=== PATIENT | female | born 1930 | race Caucasian/White ===

== ENCOUNTER 2017-05-09 01:11 | Inpatient (IN) | payer MEDICARE ==
[~2017-05-09] VITALS: Ht 162.6 cm; Wt 60.7 kg
[2017-05-09] VITALS (12 sets, daily range): BP systolic 122–164; BP diastolic 57–72; PULSE 61–86; RESP 15–20; TEMP 98.2–98.6; O2SAT 100
[2017-05-09] MEDS: HEPARIN-D5W 25,000 U/250 ML 250 ML IV PRN (02:45)
[2017-05-09] MEDS ORDERED: GABA100C4 PO (03:33)
[2017-05-09] MEDS ORDERED: DEXA2TAB PO (03:33)
[2017-05-09] MEDS ORDERED: TRIA37.53 PO (03:33)
[2017-05-09] MEDS ORDERED: TRAM50TA PO (03:33)
--- NOTE | 2017-05-09 03:38 | HHI.HP ---
HPI Service Critical Care Medicine Primary Care Physician Non-Staff Admission Diagnosis Diagnosis: Travel History International Travel<30 Days: No Contact w/Intl Traveler <30 Da: No Traveled to Known Affected Are: No History of Present Illness This is a 87-year-old fully pleasant female presented to [facility] complaining of atypical chest pain and headaches. Her workup in the emergency department showed small volume of subarachnoid bleed within the left parietal-occipital region, extensive dural venous sinus thrombosis which involve the superior sagittal sinus striate sinus bilateral transverse sinuses and left sigmoid sinus. There was no aneurysm observed on the CTA brain. The case was discussed by ED attending with Dr. Jarrett/ neurosurgery at [facility] [address] and the patient is transferred to critical care service. Review of Systems ROS Unable to obtain patient is confused Past Family Social History Allergies: Coded Allergies: No Known Allergies (Unverified , 05/09/17) Past Medical History Dementia Hypertension Neurology Past Surgical History Unobtainable Reported Medications Reported Meds & Active Scripts Active Reported Triamterene-Hydrochlorothiazide 37.5-25 Mg Cap 1 Cap PO DAILY Tramadol (Tramadol HCl) 50 Mg Tab 50 Mg PO Q6H PRN Dexamethasone 2 Mg Tab 2 Mg PO DAILY Gabapentin 100 Mg Cap 100 Mg PO BID Active Ordered Medications Current Medications Medications (Trade) Dose Ordered Sig/Anand Route PRN Reason Start Time Stop Time Status Last Admin Dose Admin Sodium Chloride 1,000 ml @ 84 mls/hr [id number] IV 05/09/17 03:32 05/09/17 04:58 Sodium Chloride (NS Flush) 2 ml UNSCH PRN IV FLUSH FLUSH AFTER USING IV ACCESS 05/09/17 03:45 Sodium Chloride (NS Flush) 2 ml BID IV FLUSH 05/09/17 09:00 Acetaminophen (Tylenol) 650 mg Q6H PRN PO PAIN 1-5 AND/OR FEVER >101F 05/09/17 03:45 Oxycodone/ Acetaminophen (Percocet 5-325 Mg) 1 tab Q4H PRN PO PAIN SCALE 1 TO 5 05/09/17 03:45 Famotidine (Pepcid Inj) 20 mg Q12HR IV PUSH 05/09/17 09:00 Ondansetron HCl (Zofran Inj) 4 mg Q6H PRN IV PUSH NAUSEA OR VOMITING 05/09/17 03:45 Albuterol/ Ipratropium (Duoneb Neb) 1 ampule Q2HR NEB PRN INH WHEEZING 05/09/17 03:45 Miscellaneous Information 1 Q361D XX 05/09/17 03:45 Chlorhexidine Gluconate (Chlorhexidine 2% Cloth) 3 pack Taper DAILY@04 TOP 05/09/17 04:00 05/05/18 03:59 Chlorhexidine Gluconate (Chlorhexidine 2% Cloth) 3 pack UNSCH PRN TOP HYGIENIC CARE 05/09/17 03:45 Senna/Docusate Sodium (Alissa-Colace) 1 tab BID PO 05/09/17 09:00 Magnesium Hydroxide (Milk Of Magnesia Liq) 30 ml Q12H PRN PO Mild constipation 05/09/17 03:45 Sennosides (Senokot) 17.2 mg Q12H PRN PO Moderate constipation 05/09/17 03:45 Bisacodyl (Dulcolax Supp) 10 mg DAILY PRN RECTAL SEVERE CONSITIPATION 05/09/17 03:45 Lactulose (Lactulose Liq) 30 ml DAILY PRN PO SEVERE CONSITIPATION 05/09/17 03:45 Dexamethasone (Decadron) 2 mg DAILY PO 05/09/17 09:00 Gabapentin (Neurontin) 100 mg BID PO 05/09/17 09:00 Heparin Sodium/ Dextrose 250 ml @ 7 mls/hr TITRATE PRN IV Coagulation Management 05/09/17 03:45 Levetriacetam 100 ml @ 400 mls/hr Q12HR IV 05/09/17 09:00 Hydromorphone HCl (Dilaudid Pf Inj) 0.2 mg Q4H PRN IV PUSH pain > 5/10 05/09/17 07:00 UNV Family History Family history significant of malignancy Social History Drinks 2 drinks per day, no alcohol or illicit drug abuse Physical Exam Vital Signs Vital Signs Date Time Temp Pulse Resp B/P (MAP) Pulse Ox O2 Delivery O2 Flow Rate FiO2 05/09/17 03:22 79 Physical Exam GENERAL: Well-nourished, well-developed patient. Very pleasant Citizen Of [place]- speaking only woman confused and mildly agitated SKIN: Warm and dry. HEAD: Normocephalic. EYES: No scleral icterus. No injection or drainage. NECK: Supple, trachea midline. No JVD or lymphadenopathy. CARDIOVASCULAR: Regular rate and rhythm without murmurs, gallops, or rubs. RESPIRATORY: Breath sounds equal bilaterally. No accessory muscle use. GASTROINTESTINAL: Abdomen soft, non-tender, nondistended. MUSCULOSKELETAL: No cyanosis, or edema. BACK: Nontender without obvious deformity. NEURO EXAM: Mental Status: The patient is awake, confused, not following commands, Citizen Of [place]- speaking only Cranial Nerves: Pupils are round, reactive to light. Reflexes: Biceps, patellar, and Achilles are 2/4 bilaterally. No clonus. Laboratory Laboratory Tests Test 05/09/17 02:41 Caprini VTE Risk Assessment Caprini VTE Risk Assessment: Mod/High Risk (score >= 2) VTE Pharm Contraindication: Hemorrhage Caprini Risk Assessment Model Point Value = 1 Point Value = 2 Point Value = 3 Point Value = 5 Age 41-60 Minor surgery BMI > 25 kg/m2 Swollen legs Varicose veins or History of unexplained or recurrent spontaneous Oral contraceptives or hormone replacement Sepsis (< 1 month) Serious lung disease, including pneumonia (< 1 month) Abnormal pulmonary function Acute myocardial infarction Congestive heart failure (< 1 month) History of inflammatory bowel disease Medical patient at bed rest Age 61-74 Arthroscopic surgery Major open surgery (> 45 min) Laparoscopic surgery (> 45 min) Malignancy Confined to bed (> 72 hours) Immobilizing plaster cast Central venous access Age >= 75 History of VTE Family history of VTE Factor V Leiden Prothrombin [id number] Lupus anticoagulant Anticardiolipin antibodies Elevated serum homocysteine Heparin-induced thrombocytopenia Other congenital or acquired thrombophilia Stroke (< 1 month) Elective arthroplasty Hip, pelvis, or leg fracture Acute spinal cord injury (< 1 month) Prophylaxis Regimen Total Risk Factor Score Risk Level Prophylaxis Regimen 0-1 Low Early ambulation 2 Moderate Order ONE of the following: *Sequential Compression Device (SCD) *Heparin 5000 units SQ BID 3-4 Higher Order ONE of the following medications: *Heparin 5000 units SQ TID *Enoxaparin/Lovenox 40 mg SQ daily (WT < 150 kg, CrCl > 30 mL/min) *Enoxaparin/Lovenox 30 mg SQ daily (WT < 150 kg, CrCl > 10-29 mL/min) *Enoxaparin/Lovenox 30 mg SQ BID (WT < 150 kg, CrCl > 30 mL/min) AND/OR *Sequential Compression Device (SCD) 5 or more Highest Order ONE of the following medications: *Heparin 5000 units SQ TID (Preferred with Epidurals) *Enoxaparin/Lovenox 40 mg SQ daily (WT < 150 kg, CrCl > 30 mL/min) *Enoxaparin/Lovenox 30 mg SQ daily (WT < 150 kg, CrCl > 10-29 mL/min) *Enoxaparin/Lovenox 30 mg SQ BID (WT < 150 kg, CrCl > 30 mL/min) AND *Sequential Compression Device (SCD) Assessment and Plan Assessment and Plan Subarachnoid bleed - Due to venous sinus thrombosis - No aneurysm observed on CTA - Blood pressure control - Neurosurgical consultation Venous sinus thrombosis - Heparin drip - Neurology consult - Admit to neuro ICU - Neuro checks per unit routine Hypertension - Hold diuretics - Hydralazine and labetalol when necessary - SBP goal less than 140 Seizure - IV Keppra every 12 hours - EEG at the bedside Neuropathy - Home dose of gabapentin DVT GI prophylaxis - Teds SCDs - Heparin drip - Pepcid Critical Care: The total critical care time was 35 minutes. Time to perform other separately billable procedures was not included in the critical care time. Adam Powers MD May 09, 2017 03:38
[2017-05-09] MEDS ORDERED: ONDANSETRON HCL 4 MG/2 ML VIAL IV PUSH PRN (03:45)
[2017-05-09] MEDS ORDERED: CHLORHEXIDINE GLUCONATE 2 % 1 PACK (2 CLOTHS) TOP PRN (03:45)
[2017-05-09] MEDS ORDERED: MISCELLANEOUS NURSING INFORMATION XX SCH (03:45)
[2017-05-09] MEDS ORDERED: oxyCODONE/ACETAMINOPHEN 5 MG/325 MG TAB PO PRN (03:45)
[2017-05-09] MEDS ORDERED: SODIUM CHLORIDE 0.9% FLUSH 10 ML FLUSH IV FLUSH PRN (03:45)
[2017-05-09] MEDS ORDERED: SENNOSIDES 8.6 MG TAB PO PRN (03:45)
[2017-05-09] MEDS ORDERED: BISACODYL 10 MG SUPP RECTAL PRN (03:45)
[2017-05-09] MEDS ORDERED: LACTULOSE SYRUP 20 GM/30 ML CUP PO PRN (03:45)
[2017-05-09] MEDS ORDERED: MAGNESIUM HYDROXIDE SUSP 30 ML CUP PO PRN (03:45)
[2017-05-09] MEDS ORDERED: RESP: ALBUTEROL 2.5 MG/IPRATROPIUM 0.5 MG NEB (PRN) INH (03:45)
[2017-05-09] MEDS ORDERED: ACETAMINOPHEN 325 MG TAB PO PRN (03:45)
[2017-05-09] MEDS: CHLORHEXIDINE GLUCONATE 2 % 1 PACK (2 CLOTHS) TOP SCH (04:00)
[2017-05-09] MEDS: SODIUM CHLOR 0.9% 1000 ML INJ 1,000 ML IV SCH ×2 (04:58→15:27)
[2017-05-09 05:36] LABS: HEMATOCRIT 43.1 % (35.0-46.0); MEAN CELL VOLUME 98.5 FL (80.0-100.0); MEAN CORPUSCULAR HEMOGLOBIN 32.8 PG (27.0-34.0); MEAN CORPUSCULAR HGB CONC 33.3 % (32.0-36.0); PLATELET COUNT 172 TH/MM3 (150-450); RED BLOOD COUNT 4.38 MIL/MM3 (4.00-5.30); RED CELL DISTRIBUTION WIDTH 14.3 % (11.6-17.2); REVIEW FLAG FINAL; WHITE BLOOD COUNT 11.3 TH/MM3 (4.0-11.0)
[2017-05-09 05:46] LABS: INTERNATIONAL NORMALIZED RATIO 1.1 RATIO
[2017-05-09] MEDS ORDERED: LORazepam 2 MG/ML VIAL IV PUSH PRN (07:15)
[2017-05-09 07:20] LABS: APTT (PATIENT) 102.9 SEC (24.3-30.1)
[2017-05-09] MEDS: levETIRAcetam 1000 MG INJ 100 ML IV SCH ×2 (08:36→19:39)
[2017-05-09] MEDS: GABAPENTIN 100 MG CAP PO SCH ×2 (08:36→19:40)
[2017-05-09] MEDS: FAMOTIDINE 20 MG/2 ML VIAL IV PUSH SCH ×2 (08:36→19:39)
[2017-05-09] MEDS: DOCUSATE SODIUM 50 MG/SENNA 8.6 MG TAB PO SCH ×2 (08:36→19:40)
[2017-05-09] MEDS: SODIUM CHLORIDE 0.9% FLUSH 10 ML FLUSH IV FLUSH SCH ×2 (08:36→19:39)
[2017-05-09] MEDS ORDERED: levETIRAcetam 1000 MG INJ 100 ML IV SCH (09:00)
[2017-05-09] MEDS ORDERED: DEXAMETHASONE 4 MG TAB PO SCH (09:00)
[2017-05-09 10:37] LABS: APTT (PATIENT) 53.9 SEC (24.3-30.1)
[2017-05-09] MEDS: DEXAMETHASONE SOD PHOS 4 MG/ML VIAL IV PUSH SCH ×2 (11:52→19:39)
--- NOTE | 2017-05-09 16:03 | MG ---
cc: ROSANNE WEBBER Lab No: [id number] Date: 05/09/2017 Age: Sex: F Race: TECHNIQUE 17-channel EEG. DESCRIPTION: The background rhythm reveals slowing in the theta frequency at 6 Hz, amplitude is about 20 microvolts. No lateralizing features are seen. There are no epileptiform discharges. There is occasional muscle artifact. Hyperventilation was not done. Photic results in a poor driving response. INTERPRETATION Abnormal study consistent with a moderate degree of encephalopathy. MD BO Valiente/EBONIEL /3:53 PM /4:05 PM
--- NOTE | 2017-05-09 16:28 | PD.CONS ---
HPI Service neurosurgery Consult Requested By dr Powers Reason for Consult Subarachnoid hemorrhage Primary Care Physician Non-Staff History of Present Illness This is a 87-year-old fully pleasant female presented to [facility] complaining of atypical chest pain and headaches. Her workup in the emergency department showed small volume of subarachnoid bleed within the left parietal-occipital region, extensive dural venous sinus thrombosis which involve the superior sagittal sinus striate sinus bilateral transverse sinuses and left sigmoid sinus. There was no aneurysm observed on the CTA brain. she has history of dementia. She is alert and confused, at baseline. She moves all 4 extremities without focal weakness. neurosurgical consultation was requested. Review of Systems Not possible due to her dementia Past Family Social History Allergies: Coded Allergies: No Known Allergies (Unverified , 05/09/17) Past Medical History Dementia Hypertension Neurology Reported Medications Triamterene-Hydrochlorothiazide 37.5-25 Mg Cap 1 Cap PO DAILY Tramadol (Tramadol HCl) 50 Mg Tab 50 Mg PO Q6H PRN Dexamethasone 2 Mg Tab 2 Mg PO DAILY Gabapentin 100 Mg Cap 100 Mg PO BID Active Ordered Medications Current Medications Sodium Chloride 1,000 ml @ 84 mls/hr [id number] IV Last administered on 04:58; Start 05/09/17 at 03:32 Sodium Chloride (NS Flush) 2 ml UNSCH PRN IV FLUSH FLUSH AFTER USING IV ACCESS ; Start 05/09/17 at 03:45 Sodium Chloride (NS Flush) 2 ml BID IV FLUSH Last administered on 05/09/17 08: 36; Start 05/09/17 at 09:00 Acetaminophen (Tylenol) 650 mg Q6H PRN PO PAIN 1-5 AND/OR FEVER >101F; Start 05/09/17 at 03:45 Oxycodone/ Acetaminophen (Percocet 5-325 Mg) 1 tab Q4H PRN PO PAIN SCALE 1 TO 5; Start 05/09/17 at 03:45 Famotidine (Pepcid Inj) 20 mg Q12HR IV PUSH Last administered on 05/09/17 08: 36; Start 05/09/17 at 09:00 Ondansetron HCl (Zofran Inj) 4 mg Q6H PRN IV PUSH NAUSEA OR VOMITING; Start at 03:45 Albuterol/ Ipratropium (Duoneb Neb) 1 ampule Q2HR NEB PRN INH WHEEZING; Start 05/09/17 at 03:45 Miscellaneous Information 1 Q361D XX ; Start 05/09/17 at 03:45 Chlorhexidine Gluconate (Chlorhexidine 2% Cloth) 3 pack Taper DAILY@04 TOP ; Start 05/09/17 at 04:00; Stop 05/05/18 at 03:59 Chlorhexidine Gluconate (Chlorhexidine 2% Cloth) 3 pack UNSCH PRN TOP HYGIENIC CARE; Start 05/09/17 at 03:45 Senna/Docusate Sodium (Alissa-Colace) 1 tab BID PO ; Start 05/09/17 at 09:00 Magnesium Hydroxide (Milk Of Magnesia Liq) 30 ml Q12H PRN PO Mild constipation ; Start 05/09/17 at 03:45 Sennosides (Senokot) 17.2 mg Q12H PRN PO Moderate constipation; Start 05/09/17 at 03:45 Bisacodyl (Dulcolax Supp) 10 mg DAILY PRN RECTAL SEVERE CONSITIPATION; Start 05/09/17 at 03:45 Lactulose (Lactulose Liq) 30 ml DAILY PRN PO SEVERE CONSITIPATION; Start at 03:45 Dexamethasone (Decadron) 2 mg DAILY PO ; Start 05/09/17 at 09:00; Stop 05/09/17 at 11:04; Status DC Gabapentin (Neurontin) 100 mg BID PO ; Start 05/09/17 at 09:00 Heparin Sodium/ Dextrose 250 ml @ 7 mls/hr TITRATE PRN IV Coagulation Management Last administered on 05/09/17 02:45; Start 05/09/17 at 03:45 Levetriacetam 100 ml @ 400 mls/hr Q12HR IV Last administered on 05/09/17 08: 36; Start 05/09/17 at 09:00 Hydromorphone HCl (Dilaudid Pf Inj) 0.2 mg Q4H PRN IV PUSH pain > 5/10; Start 05/09/17 at 07:00 Levetriacetam 100 ml @ 400 mls/hr Q12HR IV ; Start 05/09/17 at 09:00; Stop 05/09/17 at 09:00; Status DC Lorazepam (Ativan Inj) 1 mg Q15M PRN IV PUSH seizure; Start 05/09/17 at 07:15 Dexamethasone Sodium Phosphate (Decadron Inj) 2 mg Q12HR IV PUSH Last administered on 05/09/17t 11:52; Start 05/09/17 at 11:15 Family History Unobtainable due to her condition Social History Drinks 2 drinks per day, no alcohol or illicit drug abuse Physical Exam Vital Signs Vital Signs Date Time Temp Pulse Resp B/P (MAP) Pulse Ox O2 Delivery O2 Flow Rate FiO2 05/09/17 14:00 86 05/09/17 12:00 98.4 65 20 152/69 (96) 100 05/09/17 12:00 65 05/09/17 10:00 61 05/09/17 08:00 98.5 73 15 144/67 (92) 100 05/09/17 08:00 73 05/09/17 07:00 100 Room Air 05/09/17 06:00 77 05/09/17 04:00 70 05/09/17 04:00 98.6 70 20 122/57 (78) 100 05/09/17 03:22 79 05/09/17 02:45 98.6 78 17 149/63 (91) 100 Physical Exam The patient is alert, confused, oriented to self. At baseline. GCS 14 Cranial nerve examination demonstrates the pupils to be equal, round, and reactive to light. Extra-ocular movements are intact with normal convergence. Facial motor function appears normal and symmetrical. Face sensation, hearing, visual cole, and olfaction can not be assessed properly due to the patients condition. The patient has an intact corneal reflex and a gag reflex. Sternocleidomastoid and trapezius have normal and symmetrical strength. Other cranial nerves are intact. Neck is soft and supple. Cervical spine has a decreased range of motion of the cervical spine without pain. There is no tenderness to palpation to the spinous processes or paraspinal muscles. Muscle testing reveals normal bulk and tone overall without rigidity, spasticity , fasciculations, or atrophy. Muscle strength is 5/5 in all muscle groups of both upper and lower extremities. Deep tendon reflexes are 1+ and symmetrical in the biceps, triceps, and brachioradialis, bilaterally, in the upper extremities. In the lower extremities , the patellar and Achilles are 1+, bilaterally. There is a bilateral plantar flexion response. Hoffmanns sign is negative. There is no clonus or other abnormal reflexes noted. Cerebellar examination is limited due to the patient condition, but no obvious deficits are noted. Laboratory Laboratory Tests Test 05/09/17 02:41 05/09/17 05:18 05/09/17 10:05 Nasal Screen MRSA (PCR) MRSA NOT DETECTED White Blood Count 11.3 Red Blood Count 4.38 Hemoglobin 14.4 Hematocrit 43.1 Mean Corpuscular Volume 98.5 Mean Corpuscular Hemoglobin 32.8 Mean Corpuscular Hemoglobin Concent 33.3 Red Cell Distribution Width 14.3 Platelet Count 172 Mean Platelet Volume 7.4 Prothrombin Time 12.0 Prothromb Time International Ratio 1.1 Activated Partial Thromboplast Time 102.9 53.9 Result Diagram: 05/09/17 0518 Assessment and Plan Assessment and Plan Caprini VTE Risk Assessment Caprini VTE Risk Assessment: Mod/High Risk (score >= 2) Caprini Risk Assessment Model Point Value = 1 Point Value = 2 Point Value = 3 Point Value = 5 Age 41-60 Minor surgery BMI > 25 kg/m2 Swollen legs Varicose veins or History of unexplained or recurrent spontaneous Oral contraceptives or hormone replacement Sepsis (< 1 month) Serious lung disease, including pneumonia (< 1 month) Abnormal pulmonary function Acute myocardial infarction Congestive heart failure (< 1 month) History of inflammatory bowel disease Medical patient at bed rest Age 61-74 Arthroscopic surgery Major open surgery (> 45 min) Laparoscopic surgery (> 45 min) Malignancy Confined to bed (> 72 hours) Immobilizing plaster cast Central venous access Age >= 75 History of VTE Family history of VTE Factor V Leiden Prothrombin [id number] Lupus anticoagulant Anticardiolipin antibodies Elevated serum homocysteine Heparin-induced thrombocytopenia Other congenital or acquired thrombophilia Stroke (< 1 month) Elective arthroplasty Hip, pelvis, or leg fracture Acute spinal cord injury (< 1 month) Prophylaxis Regimen Total Risk Factor Score Risk Level Prophylaxis Regimen 0-1 Low Early ambulation 2 Moderate Order ONE of the following: *Sequential Compression Device (SCD) *Heparin 5000 units SQ BID 3-4 Higher Order ONE of the following medications: *Heparin 5000 units SQ TID *Enoxaparin/Lovenox 40 mg SQ daily (WT < 150 kg, CrCl > 30 mL/min) *Enoxaparin/Lovenox 30 mg SQ daily (WT < 150 kg, CrCl > 10-29 mL/min) *Enoxaparin/Lovenox 30 mg SQ BID (WT < 150 kg, CrCl > 30 mL/min) AND/OR *Sequential Compression Device (SCD) 5 or more Highest Order ONE of the following medications: *Heparin 5000 units SQ TID (Preferred with Epidurals) *Enoxaparin/Lovenox 40 mg SQ daily (WT < 150 kg, CrCl > 30 mL/min) *Enoxaparin/Lovenox 30 mg SQ daily (WT < 150 kg, CrCl > 10-29 mL/min) *Enoxaparin/Lovenox 30 mg SQ BID (WT < 150 kg, CrCl > 30 mL/min) AND *Sequential Compression Device (SCD) Attending Statement Sinus thrombosis. Pt on heparin drip. Has subarachnoid hemorrhage. I reviewed her radiological studies from [facility]. CTA negative for aneurysm Neuro. neuro checks in a serial fashion, follow-up CT of the brain will be obtained in 24 hours. Nonoperative treatment I will manage her subarachnoid hemorrhage, I will kindly defer management of the thrombosis to neurology Pulmonary.aggressive pulmonary toilette, nasotracheal suction, and breathing treatments with nebulizers. The patient has comorbidities including Alcohol intoxication, Diabetes mellitus , Thrombocytopenia, Hepatitis C, which increase the risk for developing complications. Nutrition. Oral diet ADA 2000 Asif Renal. monitor closely urine output, BUN and creatinine Diabetes mellitus. Monitor serial Acu checks and SSI as needed in detail ID monitor for signs of infection Protonix for stress ulcer prophylaxis Perez jacinto and SCD's for DVT prophylaxis. Discussed with Mikhail Zuñiga MD May 09, 2017 16:28
--- NOTE | 2017-05-09 17:31 | MB ---
cc: MICHAEL ESPARZA M.D. DATE OF CONSULTATION 05/09/2017 DATE OF 1930, 87 years old REASON FOR CONSULTATION Sinus thromboses HISTORY OF THE PRESENT ILLNESS This is an 87-year-old woman who presented to the ER at [facility] yesterday with a headache. Had a CT scan found to have a left parietooccipital subarachnoid hemorrhage and dural vein sinus thromboses and subsequently sent here to neurosurgery. The patient has a baseline dementia, hypertension, neuropathy. She is currently lying in bed, family members around her, confused, agitated. She does not speak [place]. She is [place]ic speaking. She will not answer any questions for me or for family members. She has been seen by neurosurgery. She is currently on heparin REVIEW OF SYSTEMS Unable to obtain. ALLERGIES None reported PAST MEDICAL HISTORY 1. Dementia. 2. Neuropathy. 3. Hypertension. MEDICATIONS Home meds are: 1. Triamterene. 2. Hydrochlorothiazide. 3. Tramadol p.r.n. 4. Dexamethasone. 5. Gabapentin. PHYSICAL EXAMINATION VITAL SIGNS: On exam vitals temperature 98.4, pulse 86, respiratory rate 20, blood pressure is 152/69, sating at 100%. NECK: Supple. No bruits. HEART: Regular. NEUROLOGIC: She is awake and alert. Her pupils are reactive. She does not have a gaze preference. She tends to look at you and then she does not look at you. Does not follow any commands to determine if she can see or not. I asked her to count fingers for me, she refused. Her speech is [place]ic does sound fluent. Motor terry she seems to be moving everything. She looks equal but she will not follow any appropriate commands to test strength. DTRs are 2+. Toes withdraw. Cerebellar cannot be assessed nor can gait. LABORATORY DATA Labs, white count 11.3. Her PTT at 10:05 this morning was 53.9. MRSA not detected. IMAGING She had imaging at [facility] that confirmed subarachnoid left parietal occipital region and dural vein sinus thromboses superior sagittal sinus both transverse and left sigmoid. She apparently had a seizure and was started also on Keppra. RECOMMENDATIONS The recommendations are to maintain seizure precautions. Continue her Keppra and check an EEG. Can continue her Gabapentin. Continue her heparin per protocol. PT, OT, speech therapy evaluation. She will need a swallow evaluation and evaluation by case management for either outpatient therapy, home care versus alf. MD WILDA Jordan/CAMILA /4:12 PM /5:16 PM
--- NOTE | 2017-05-09 18:00 | RADRPT ---
EXAM DATE/TIME: 05/09/2017 17:17 [place] COMPARISON: No previous studies available for comparison. INDICATIONS : Follow up bleed. RADIATION DOSE: 26.84 CTDIvol (mGy) MEDICAL HISTORY : Hypertension. SURGICAL HISTORY : None. ENCOUNTER: Initial ACUITY: 1 day PAIN SCALE: 5/10 LOCATION: Bilateral cranial TECHNIQUE: Multiple contiguous axial images were obtained of the head. Using automated exposure control and adj ustment of the mA and/or kV according to patient size, radiation dose was kept as low as reasonably a chievable to obtain optimal diagnostic quality images. DICOM format image data is available electro nically for review and comparison. FINDINGS: There is intraparenchymal hemorrhage in the left posterior occipital mid convexities are measuring ap proximately 2.9 x 2.4 cm. There is also associated regional subarachnoid blood products. No significa nt midline shift. Basilar cisterns are intact. The ventricles are symmetrical in size without evidenc e for intraventricular blood products. There is mild diffuse to atrophy with mild to moderate periventricular white matter hypodensities con sistent with ischemic white matter demyelination. Brainstem and cerebellum are intact. Soft tissues a re grossly unremarkable. Calvarium is intact. Paranasal sinuses and mastoid air cells are clear. CONCLUSION: 1. Left posterior occipital mid convexity interparenchymal hemorrhage measuring approximately 2.9 x 2 .4 cm with associated regional subarachnoid blood products. No significant hydrocephalus, midline emi ft or herniation at this time. Hemorrhagic mass cannot be excluded. This can be further evaluated wit h MRI exam as clinically warranted. Pa Sanchez MD on May 09, 2017 at 17:54 Board Certified Radiologist. This report was verified electronically.
[2017-05-09 18:43] LABS: APTT (PATIENT) 72.4 SEC (24.3-30.1)
[2017-05-09] MEDS: HYDROmorphone HCL PF 1 MG/ML VIAL IV PUSH PRN (19:40)
[2017-05-10] VITALS (13 sets, daily range): BP systolic 115–169; BP diastolic 56–72; PULSE 54–82; RESP 14–22; TEMP 97.5–98.6; O2SAT 94–100
[2017-05-10 01:07] LABS: APTT (PATIENT) 86.4 SEC (24.3-30.1)
[2017-05-10] MEDS: HYDROmorphone HCL PF 1 MG/ML VIAL IV PUSH PRN ×3 (01:40→17:06)
[2017-05-10] MEDS: SODIUM CHLOR 0.9% 1000 ML INJ 1,000 ML IV SCH ×2 (03:22→15:17)
[2017-05-10] MEDS: CHLORHEXIDINE GLUCONATE 2 % 1 PACK (2 CLOTHS) TOP SCH (03:23)
[2017-05-10 03:58] LABS: BASOPHIL % 0.2 % (0.0-2.0); HEMATOCRIT 40.9 % (35.0-46.0); HEMO FLAGS DIFF FINAL; LYMPH % 21.3 % (9.0-44.0); LYMPHOCYTE # 1.4 TH/MM3 (1.0-4.8); MEAN CELL VOLUME 99.1 FL (80.0-100.0); MEAN CORPUSCULAR HEMOGLOBIN 33.8 PG (27.0-34.0); MEAN CORPUSCULAR HGB CONC 34.1 % (32.0-36.0); MONO % 3.8 % (0.0-8.0); NEUT % 74.7 % (16.0-70.0); PLATELET COUNT 143 TH/MM3 (150-450); RED BLOOD COUNT 4.12 MIL/MM3 (4.00-5.30); RED CELL DISTRIBUTION WIDTH 13.8 % (11.6-17.2); WHITE BLOOD COUNT 6.7 TH/MM3 (4.0-11.0)
[2017-05-10 04:10] LABS: APTT (PATIENT) 36.6 SEC (24.3-30.1)
[2017-05-10 04:31] LABS: ANION GAP 8 MEQ/L (5-15); AST (GOT) 25 U/L (15-37); BICARBONATE 23.1 MEQ/L (21.0-32.0); BLOOD UREA NITROGEN 23 MG/DL (7-18); CHLORIDE 105 MEQ/L (98-107); GLOMERULAR FILTRATION RATE 62 ML/MIN (>89); MAGNESIUM 2.3 MG/DL (1.5-2.5); POTASSIUM 4.4 MEQ/L (3.5-5.1); SODIUM (NA) 136 MEQ/L (136-145)
[2017-05-10 04:32] LABS: ALT (GPT) 18 U/L (10-53)
[2017-05-10 04:34] LABS: ALKALINE PHOSPHATASE 94 U/L (45-117); TOTAL BILIRUBIN ADULT 0.9 MG/DL (0.2-1.0)
[2017-05-10] MEDS: HEPARIN-D5W 25,000 U/250 ML 250 ML IV PRN (07:32)
[2017-05-10] MEDS: SODIUM CHLORIDE 0.9% FLUSH 10 ML FLUSH IV FLUSH SCH ×2 (09:00→21:01)
[2017-05-10] MEDS: GABAPENTIN 100 MG CAP PO SCH ×2 (09:00→21:02)
[2017-05-10] MEDS: DOCUSATE SODIUM 50 MG/SENNA 8.6 MG TAB PO SCH ×2 (09:00→21:02)
--- NOTE | 2017-05-10 09:08 | HHI.CCPN ---
Subjective Remarks/Hospital Course This is a 87-year-old fully pleasant female presented to [facility] complaining of atypical chest pain and headaches. Her workup in the emergency department showed small volume of subarachnoid bleed within the left parietal-occipital region, extensive dural venous sinus thrombosis which involve the superior sagittal sinus striate sinus bilateral transverse sinuses and left sigmoid sinus. There was no aneurysm observed on the CTA brain. The case was discussed by ED attending with Dr. Jarrett/ neurosurgery at [facility] and the patient is transferred to critical care service. 05/10: CT head last evening demonstrated left occipital parenchymal hemorrhage. Discussed in detail with consultants. Assuming parenchymal bleeding is from venous back pressure we will continue anticoagulation, convert to lovenox to produce better steady state therapy. Objective Vital Signs Date Time Temp Pulse Resp B/P (MAP) Pulse Ox O2 Delivery O2 Flow Rate FiO2 05/10/17 07:47 99 21 05/10/17 06:00 54 05/10/17 04:00 98.0 15 145/67 (93) 05/09/17 19:00 Room Air Intake and Output 05/10/17 05/10/17 05/11/17 08:00 16:00 00:00 Intake Total 1000 ml Balance 1000 ml Result Diagram: 05/10/17 0345 05/10/17 0345 Objective Remarks GENERAL: Well-nourished, well-developed patient. Very pleasant [place]- speaking only woman confused. SKIN: Warm and dry. HEAD: Normocephalic. EYES: No scleral icterus. No injection or drainage. NECK: Supple, trachea midline. Airway widely patent. CARDIOVASCULAR: Regular rate and rhythm without murmurs, gallops, or rubs. RESPIRATORY: Breath sounds equal bilaterally. No accessory muscle use. Clear. GASTROINTESTINAL: Abdomen soft, non-tender, nondistended. BS active. MUSCULOSKELETAL: No cyanosis, or edema. Well perfused. NEURO EXAM: Moves 4 limbs spontaneously, conversant in [place]ian. Alert. A/P Assessment and Plan Subarachnoid bleed - Due to venous sinus thrombosis - No aneurysm observed on CTA - Blood pressure control - Neurosurgical consultation Venous sinus thrombosis - Heparin drip - Neurology consult - Admit to neuro ICU - Neuro checks per unit routine Hypertension - Hold diuretics - Hydralazine and labetalol when necessary - SBP goal less than 140 Seizure - IV Keppra every 12 hours - EEG at the bedside Neuropathy - Home dose of gabapentin DVT GI prophylaxis - Teds SCDs - Heparin drip - Pepcid Overall impression: Patient is critically ill with new parenchymal hemorrhages and cerebral vein thrombosis. New parenchymal bleed may be related to venous back pressure from venous obstruction. Morbidity is so high without therapy that we will continue anticoagulation. Review of recent literature indicates that risk of catastrophic parenchymal hemorrhage is low. Critical care 43 mins Behzad Blanco MD May 10, 2017 09:08
[2017-05-10] MEDS: FAMOTIDINE 20 MG/2 ML VIAL IV PUSH SCH ×2 (09:25→21:02)
[2017-05-10] MEDS: DEXAMETHASONE SOD PHOS 4 MG/ML VIAL IV PUSH SCH ×2 (09:26→21:02)
[2017-05-10] MEDS: levETIRAcetam 1000 MG INJ 100 ML IV SCH ×2 (09:27→21:01)
[2017-05-10 13:20] LABS: APTT (PATIENT) 30.8 SEC (24.3-30.1)
[2017-05-10] MEDS: ENOXAPARIN SODIUM 60 MG/0.6 ML SYRINGE SQ SCH (16:00)
--- NOTE | 2017-05-10 17:19 | HHI.NSPN ---
Note Status Status: Progress Note Interval History Diagnosis Sinus thrombosis Interval History This is a 87-year-old fully pleasant female presented to [facility] complaining of atypical chest pain and headaches. Her workup in the emergency department showed small volume of subarachnoid bleed within the left parietal-occipital region, extensive dural venous sinus thrombosis which involve the superior sagittal sinus striate sinus bilateral transverse sinuses and left sigmoid sinus. There was no aneurysm observed on the CTA brain. she has history of dementia. She is alert and confused, at baseline. She moves all 4 extremities without focal weakness. neurosurgical consultation was requested. 05/10. Clinically stable. Follow up CT brain done today Labs, Micro, & Vital Signs Results Date Time Temp Pulse Resp B/P (MAP) Pulse Ox O2 Delivery O2 Flow Rate FiO2 05/10/17 14:00 56 05/10/17 12:00 56 05/10/17 12:00 98.0 56 14 141/63 (89) 96 05/10/17 10:00 56 05/10/17 08:00 56 05/10/17 08:00 98.2 56 22 115/56 (75) 98 05/10/17 07:47 99 21 05/10/17 07:00 99 Room Air 05/10/17 06:00 54 05/10/17 04:00 98.0 60 15 145/67 (93) 100 05/10/17 04:00 60 05/10/17 02:10 16 05/10/17 02:00 61 05/10/17 00:00 61 05/10/17 00:00 97.5 61 18 169/72 (104) 94 05/09/17 22:00 61 05/09/17 20:00 64 05/09/17 20:00 98.2 64 18 136/65 (88) 100 05/09/17 19:00 100 Room Air 05/09/17 18:00 98.4 70 17 164/72 (102) 100 05/09/17 18:00 70 Constitutional Vital Signs Date Time Temp Pulse Resp B/P (MAP) Pulse Ox O2 Delivery O2 Flow Rate FiO2 05/10/17 14:00 56 05/10/17 12:00 56 05/10/17 12:00 98.0 56 14 141/63 (89) 96 05/10/17 10:00 56 05/10/17 08:00 56 05/10/17 08:00 98.2 56 22 115/56 (75) 98 05/10/17 07:47 99 21 05/10/17 07:00 99 Room Air 05/10/17 06:00 54 05/10/17 04:00 98.0 60 15 145/67 (93) 100 05/10/17 04:00 60 05/10/17 02:10 16 05/10/17 02:00 61 05/10/17 00:00 61 05/10/17 00:00 97.5 61 18 169/72 (104) 94 05/09/17 22:00 61 05/09/17 20:00 64 05/09/17 20:00 98.2 64 18 136/65 (88) 100 05/09/17 19:00 100 Room Air 05/09/17 18:00 98.4 70 17 164/72 (102) 100 05/09/17 18:00 70 Physical Exam Ms Lewis is alert, confused, oriented to self. At baseline. GCS 14 Cranial nerve examination demonstrates the pupils to be equal, round, and reactive to light. Extra-ocular movements are intact with normal convergence. Facial motor function appears normal and symmetrical. Face sensation, hearing, visual cole, and olfaction can not be assessed properly due to the patients condition. The patient has an intact corneal reflex and a gag reflex. Sternocleidomastoid and trapezius have normal and symmetrical strength. Other cranial nerves are intact. Neck is soft and supple. Cervical spine has a decreased range of motion of the cervical spine without pain. There is no tenderness to palpation to the spinous processes or paraspinal muscles. Muscle testing reveals normal bulk and tone overall without rigidity, spasticity , fasciculations, or atrophy. Muscle strength is 5/5 in all muscle groups of both upper and lower extremities. Deep tendon reflexes are 1+ and symmetrical in the biceps, triceps, and brachioradialis, bilaterally, in the upper extremities. In the lower extremities , the patellar and Achilles are 1+, bilaterally. There is a bilateral plantar flexion response. Hoffmanns sign is negative. There is no clonus or other abnormal reflexes noted. Cerebellar examination is limited due to the patient condition, but no obvious deficits are noted. Medications Current Medications Current Medications Sodium Chloride 1,000 ml @ 84 mls/hr [id number] IV Last administered on 03:22; Start 05/09/17 at 03:32 Sodium Chloride (NS Flush) 2 ml UNSCH PRN IV FLUSH FLUSH AFTER USING IV ACCESS ; Start 05/09/17 at 03:45 Sodium Chloride (NS Flush) 2 ml BID IV FLUSH Last administered on 05/10/17 09: 00; Start 05/09/17 at 09:00 Acetaminophen (Tylenol) 650 mg Q6H PRN PO PAIN 1-5 AND/OR FEVER >101F; Start 05/09/17 at 03:45 Oxycodone/ Acetaminophen (Percocet 5-325 Mg) 1 tab Q4H PRN PO PAIN SCALE 1 TO 5; Start 05/09/17 at 03:45 Famotidine (Pepcid Inj) 20 mg Q12HR IV PUSH Last administered on 05/10/17 09: 25; Start 05/09/17 at 09:00; Stop 05/10/17 at 15:31; Status DC Ondansetron HCl (Zofran Inj) 4 mg Q6H PRN IV PUSH NAUSEA OR VOMITING Last administered on 05/10/17 10:00; Start 05/09/17 at 03:45 Albuterol/ Ipratropium (Duoneb Neb) 1 ampule Q2HR NEB PRN INH WHEEZING; Start 05/09/17 at 03:45 Miscellaneous Information 1 Q361D XX ; Start 05/09/17 at 03:45 Chlorhexidine Gluconate (Chlorhexidine 2% Cloth) 3 pack Taper DAILY@04 TOP ; Start 05/09/17 at 04:00; Stop 05/05/18 at 03:59 Chlorhexidine Gluconate (Chlorhexidine 2% Cloth) 3 pack UNSCH PRN TOP HYGIENIC CARE; Start 05/09/17 at 03:45 Senna/Docusate Sodium (Alissa-Colace) 1 tab BID PO ; Start 05/09/17 at 09:00 Magnesium Hydroxide (Milk Of Magnesia Liq) 30 ml Q12H PRN PO Mild constipation ; Start 05/09/17 at 03:45 Sennosides (Senokot) 17.2 mg Q12H PRN PO Moderate constipation; Start 05/09/17 at 03:45 Bisacodyl (Dulcolax Supp) 10 mg DAILY PRN RECTAL SEVERE CONSITIPATION; Start 05/09/17 at 03:45 Lactulose (Lactulose Liq) 30 ml DAILY PRN PO SEVERE CONSITIPATION; Start at 03:45 Dexamethasone (Decadron) 2 mg DAILY PO ; Start 05/09/17 at 09:00; Stop 05/09/17 at 11:04; Status DC Gabapentin (Neurontin) 100 mg BID PO ; Start 05/09/17 at 09:00 Heparin Sodium/ Dextrose 250 ml @ 7 mls/hr TITRATE PRN IV Coagulation Management Last administered on 05/10/17 07:32; Start 05/09/17 at 03:45; Stop 05/10/17 at 09:06; Status DC Levetriacetam 100 ml @ 400 mls/hr Q12HR IV Last administered on 05/10/17 09: 27; Start 05/09/17 at 09:00 Hydromorphone HCl (Dilaudid Pf Inj) 0.2 mg Q4H PRN IV PUSH pain > 5/10 Last administered on 05/10/17 17:06; Start 05/09/17 at 07:00 Levetriacetam 100 ml @ 400 mls/hr Q12HR IV ; Start 05/09/17 at 09:00; Stop 05/09/17 at 09:00; Status DC Lorazepam (Ativan Inj) 1 mg Q15M PRN IV PUSH seizure; Start 05/09/17 at 07:15 Dexamethasone Sodium Phosphate (Decadron Inj) 2 mg Q12HR IV PUSH Last administered on 05/10/17 09:26; Start 05/09/17 at 11:15 Enoxaparin Sodium (Lovenox Inj) 60 mg Q12H SQ Last administered on 05/10/17 16 :00; Start 05/10/17 at 16:00 Famotidine (Pepcid Inj) 10 mg Q12HR IV PUSH ; Start 05/10/17 at 21:00 Medical Decision Making MDM Remarks Last [address] 05/09/17 0000 Signed Impressions: Service Date/Time: Tuesday, May 09, 2017 17:17 - CONCLUSION: 1. Left posterior occipital mid convexity interparenchymal hemorrhage measuring approximately 2.9 x 2.4 cm with associated regional subarachnoid blood products. No significant hydrocephalus, midline shift or herniation at this time. Hemorrhagic mass cannot be excluded. This can be further evaluated with MRI exam as clinically warranted. Pa Sanchez MD Plan Plan Remarks Caprini VTE Risk Assessment Caprini VTE Risk Assessment: Mod/High Risk (score >= 2) Caprini Risk Assessment Model Point Value = 1 Point Value = 2 Point Value = 3 Point Value = 5 Age 41-60 Minor surgery BMI > 25 kg/m2 Swollen legs Varicose veins or History of unexplained or recurrent spontaneous Oral contraceptives or hormone replacement Sepsis (< 1 month) Serious lung disease, including pneumonia (< 1 month) Abnormal pulmonary function Acute myocardial infarction Congestive heart failure (< 1 month) History of inflammatory bowel disease Medical patient at bed rest Age 61-74 Arthroscopic surgery Major open surgery (> 45 min) Laparoscopic surgery (> 45 min) Malignancy Confined to bed (> 72 hours) Immobilizing plaster cast Central venous access Age >= 75 History of VTE Family history of VTE Factor V Leiden Prothrombin [id number] Lupus anticoagulant Anticardiolipin antibodies Elevated serum homocysteine Heparin-induced thrombocytopenia Other congenital or acquired thrombophilia Stroke (< 1 month) Elective arthroplasty Hip, pelvis, or leg fracture Acute spinal cord injury (< 1 month) Prophylaxis Regimen Total Risk Factor Score Risk Level Prophylaxis Regimen 0-1 Low Early ambulation 2 Moderate Order ONE of the following: *Sequential Compression Device (SCD) *Heparin 5000 units SQ BID 3-4 Higher Order ONE of the following medications: *Heparin 5000 units SQ TID *Enoxaparin/Lovenox 40 mg SQ daily (WT < 150 kg, CrCl > 30 mL/min) *Enoxaparin/Lovenox 30 mg SQ daily (WT < 150 kg, CrCl > 10-29 mL/min) *Enoxaparin/Lovenox 30 mg SQ BID (WT < 150 kg, CrCl > 30 mL/min) AND/OR *Sequential Compression Device (SCD) 5 or more Highest Order ONE of the following medications: *Heparin 5000 units SQ TID (Preferred with Epidurals) *Enoxaparin/Lovenox 40 mg SQ daily (WT < 150 kg, CrCl > 30 mL/min) *Enoxaparin/Lovenox 30 mg SQ daily (WT < 150 kg, CrCl > 10-29 mL/min) *Enoxaparin/Lovenox 30 mg SQ BID (WT < 150 kg, CrCl > 30 mL/min) AND *Sequential Compression Device (SCD) Attending Statement Neuro. neuro checks. Sinus thrombosis. Her CT brain looks worse. I will manage her subarachnoid hemorrhage, I will kindly defer management of the thrombosis to neurology. I will kindly defer need for anticoagulation to her neurologist Pulmonary.aggressive pulmonary toilette, nasotracheal suction, and breathing treatments with nebulizers. The patient has comorbidities including Alcohol intoxication, Diabetes mellitus , Thrombocytopenia, Hepatitis C, which increase the risk for developing complications. Nutrition. Oral diet ADA 2000 Asif Renal. monitor closely urine output, BUN and creatinine Diabetes mellitus. Monitor serial Acu checks and SSI as needed in detail ID monitor for signs of infection Protonix for stress ulcer prophylaxis Perez hose and SCD's for DVT prophylaxis. Discussed with Dr Blanco. We believe that her hemorrhages are related to increased venous pressure. She is critically ill with new parenchymal hemorrhages and cerebral vein thrombosis. New parenchymal bleed possibly related to venous back pressure from venous obstruction. Morbidity is so high without therapy that we will continue anticoagulation. Review of recent literature indicates that risk of catastrophic parenchymal hemorrhage is low. Mikhail Jarrett MD May 10, 2017 17:19
--- NOTE | 2017-05-10 23:00 | MB ---
cc: PATSY WARD MD DATE OF CONSULTATION 05/10/2017 DATE OF 1930 Consult requested by the critical care service. REASON FOR CONSULTATION Patient with dural sinus thrombosis complicated by a subarachnoid hemorrhage. CURRENT TREATMENT She is on anticoagulation; initially with heparin and now on Lovenox to a therapeutic dose. CHIEF COMPLAINT Ms. Lewis is essentially nonverbal, she is arousable but is unable to communicate effectively. The entirety of this history has been obtained from her son, Venkata and from the electronic medical record from both [facility] in [place] as well as the [facility] EMR. Ms. Lewis per her son has underlying dementia, she lives with him and requires assistance with many activities of daily living including ambulation and bathing. He reports she has dementia and is quite forgetful. She had been in her usual state of health up until the morning of Sunday, the patient was noted to be groggy and did not get up like she usually would to have breakfast. She was noted to be confused and was unable to complete sentences. Her son therefore brought her in to [facility] in [place] for further workup and evaluation. On 05/08/2017 the patient underwent imaging studies of the brain including CTA of the brain. CTA of the brain revealed a subarachnoid hemorrhage and a dural sinus thrombosis. The patient was referred to [facility] for neurosurgical evaluation. Upon referral to [facility] the patient was initiated on anticoagulation with heparin. Heparin was discontinued earlier this afternoon and the patient was initiated on Lovenox instead. She has been evaluated by neurosurgery and also by neurology. Neurosurgery recommended management of the dural venous thrombosis by neurology while they manage the subarachnoid hemorrhage. At some point the decision was made to continue heparin drip that she had been on. I believe the justification for continuing the heparin drip was to relieve the back pressure resulting from the dural sinus thrombosis so as to decrease the risk of additional subarachnoid hemorrhage. The hematology service has been asked to see the patient to render an opinion regarding optimal management of these two competing issues. PAST MEDICAL HISTORY Hypertension. Dementia. PAST SURGICAL HISTORY No significant surgical history. FAMILY HISTORY No oncologic or hematologic diagnoses. SOCIAL HISTORY The patient lives at home with her son, she reportedly lived most of her life in [place]. There is no known history of alcohol or tobacco abuse. ALLERGIES NO KNOWN DRUG ALLERGIES. MEDICATIONS Current inpatient medications: 1. Keppra 1000 milligrams IV q. 12 hours. 2. Tylenol 650 milligrams p.o. q. 6 hours. 3. Dexamethasone 2 milligrams IV q. 2 hours. 4. Lovenox 60 milligrams subcu q. 12 hours. 5. Famotidine 10 milligrams IV q. 12 hours. 6. Gabapentin 100 milligrams p.o. b.i.d. 7. Lactulose 30 ml p.o. daily. 8. Lorazepam 1 milligram IV as needed for seizures. 9. Oxycodone 1 milligram p.o. q. 4 hours as needed. REVIEW OF SYSTEMS Could not obtain, please see HPI for the details obtained from her son. PHYSICAL EXAMINATION VITAL SIGNS: Temperature 98 degrees Fahrenheit, heart rate 56 beats per minute, respiratory rate 14, blood pressure 141/63, O2 sats 96% on room air. GENERAL APPEARANCE: Ms. Lewis is an elderly female, she appears to be a slight frame, she is laying in bed, she is awake, she is arousable but is not effectively communicative. Her son, [id number] and granddaughter are at bedside. She appears not to be acutely distressed. HEENT: Head atraumatic, normocephalic, conjunctive are not pale, sclerae are anicteric, EOMI, PERRLA, oral exam dry mucous membranes. NECK: No palpable cervical or supraclavicular lymphadenopathy. RESPIRATORY EXAM: Good air movement bilaterally. No added breath sounds. CARDIOVASCULAR: Bradycardia. Regular rhythm, S1-S2. No obvious murmurs, rubs or gallops. ABDOMINAL EXAM: Thin belly, soft, no palpable organ enlargement, belly is otherwise soft. LOWER EXTREMITIES: No pretibial edema. No calf tenderness. CERAMIC DESIGN ENGINEER: The patient moves all four limbs spontaneously, she has 5/5 strength over the upper and lower extremities. LABORATORY FINDINGS Blood work dated 05/10/2017: WBC count 6.7, hemoglobin 13.9 gm/dl, hematocrit 41%, MCV 99, platelet count 143. Chemistries: Sodium 136, potassium 4.4, chloride 105, bicarb 23, BUN 23, creatinine is 0.87, calcium 8.1, phosphorus 3.2, magnesium 2.3, total bilirubin 0.9, AST 25, ALT 18, alkaline phosphatase 94, albumin is 2.1. IMAGING STUDIES CT of the head without intravenous contrast dated 05/09/2017: Indicates left posterior occipital mid-convexity intraparenchymal hemorrhage measuring 2.9 x 2.4 cm associated with regional subarachnoid blood products. No evidence of hydrocephalus, midline shift or herniation at this time. Hemorrhagic mass cannot be excluded. ASSESSMENT Ms. Lewis is an 87-year-old female who has baseline dementia and limited functional independence. She was noted by her family to be increasingly confused and lethargic on the morning of 05/08/2017. She was taken to [facility] in [place], [place] for further evaluation and imaging studies of the brain revealed a subarachnoid hemorrhage as well as a dural sinus thrombosis in the vicinity. She was noted to have a witnessed seizure as well and was initiated on antiepileptic medications. She was transferred to [facility] from [place] for neurosurgical evaluation. At some point (I am not certain whether at [facility] or at [facility]) she was initiated on anticoagulation. Based on the critical care attending's note the justification for anticoagulation was to help relieve the back pressure caused by the dural sinus thrombosis which apparently had resulted in the subarachnoid hemorrhage. Based on the reports by our neurosurgical team and the neurologist this appears to be an appropriate course of management. The hematology service has been asked to render an opinion regarding optimal management. RECOMMENDATIONS 1. Subarachnoid hemorrhage in the setting of a dural sinus thrombosis: At this point the patient is therapeutically anticoagulated with Lovenox. Upon review of the existing literature and the various case series which are available, it appears that anticoagulation in this setting typically does help relieve the back pressure. The assumption is the back pressure resulting from the dural sinus thrombosis has resulted in the rupture of the arterioles in the brain parenchyma resulting in the bleeding. I did discuss the case with the Intensive Care attending as well as the neurosurgical attending and we would like to proceed with an MRI of the brain to rule out an underlying mass which may have been one of the provoking factors for the dural sinus thrombosis. The MRI will also serve to reassess the degree of intraparenchymal bleeding. I did talk to the patient's son as well and he was updated on the dilemma as far as the competing issues are concerned and complicated management choices. MD CASTRO Gaitan/DANA /5:52 PM /10:33 PM [id number]
[2017-05-10] MEDS: hydrALAZINE HCL 20 MG/ML VIAL IV PUSH PRN (23:34)
[2017-05-11] VITALS (12 sets, daily range): BP systolic 117–132; BP diastolic 58–74; PULSE 56–84; RESP 12–21; TEMP 97.3–98.1; O2SAT 92–100
[2017-05-11] MEDS: SODIUM CHLOR 0.9% 1000 ML INJ 1,000 ML IV SCH ×2 (02:50→15:07)
[2017-05-11] MEDS: CHLORHEXIDINE GLUCONATE 2 % 1 PACK (2 CLOTHS) TOP SCH (02:50)
[2017-05-11] MEDS: ENOXAPARIN SODIUM 60 MG/0.6 ML SYRINGE SQ SCH ×2 (03:34→16:00)
[2017-05-11] MEDS: hydrALAZINE HCL 20 MG/ML VIAL IV PUSH PRN ×2 (03:34→22:43)
[2017-05-11 06:23] LABS: BICARBONATE 20.4 MEQ/L (21.0-32.0); POTASSIUM 3.9 MEQ/L (3.5-5.1)
[2017-05-11] MEDS: HYDROmorphone HCL PF 1 MG/ML VIAL IV PUSH PRN ×2 (08:31→19:59)
--- NOTE | 2017-05-11 08:52 | HHI.CCPN ---
Subjective Remarks/Hospital Course This is a 87-year-old fully pleasant female presented to [facility] complaining of atypical chest pain and headaches. Her workup in the emergency department showed small volume of subarachnoid bleed within the left parietal-occipital region, extensive dural venous sinus thrombosis which involve the superior sagittal sinus striate sinus bilateral transverse sinuses and left sigmoid sinus. There was no aneurysm observed on the CTA brain. The case was discussed by ED attending with Dr. Jarrett/ neurosurgery at [facility] and the patient is transferred to critical care service. 05/10: CT head last evening demonstrated left occipital parenchymal hemorrhage. Discussed in detail with consultants. Assuming parenchymal bleeding is from venous back pressure we will continue anticoagulation, convert to lovenox to produce better steady state therapy. 05/11: Alert. Mild headache persists. Consultants have all discussed with each other the complexities of this case and logic behind anticoagulation. We will look for a prothrombotic condition. Prognosis is guarded. Objective Vital Signs Date Time Temp Pulse Resp B/P (MAP) Pulse Ox O2 Delivery O2 Flow Rate FiO2 05/11/17 07:00 99 Room Air 05/11/17 06:00 67 05/11/17 04:00 97.3 21 117/74 (88) 05/10/17 07:47 21 Result Diagram: 05/10/17 0345 05/11/17 0534 Objective Remarks GENERAL: Well-nourished, well-developed patient. Very pleasant Irish- speaking woman, confused. Son interprets. SKIN: Warm and dry. HEAD: Normocephalic. EYES: No scleral icterus. No conjunctival injection or drainage. NECK: Supple, trachea midline. Airway widely patent. CARDIOVASCULAR: Regular rate and rhythm without murmurs, gallops, or rubs. RESPIRATORY: Breath sounds equal bilaterally. No accessory muscle use. Clear. Comfortable pattern. GASTROINTESTINAL: Abdomen soft, non-tender, nondistended. BS active. MUSCULOSKELETAL: No cyanosis, or edema. Well perfused. NEURO EXAM: Moves 4 limbs spontaneously, conversant in Irish. Alert. A/P Assessment and Plan Subarachnoid bleed - Due to venous sinus thrombosis - No aneurysm observed on CTA - Blood pressure control - Neurosurgical consultation Venous sinus thrombosis - Heparin drip - Neurology consult - Admit to neuro ICU - Neuro checks per unit routine Hypertension - Hold diuretics - Hydralazine and labetalol when necessary - SBP goal less than 140 Seizure - IV Keppra every 12 hours - EEG at the bedside Neuropathy - Home dose of gabapentin DVT GI prophylaxis - Teds SCDs - Heparin drip -> lovenox 60 sq q12h - Pepcid Overall impression: Patient is critically ill with new parenchymal hemorrhages and cerebral vein thrombosis. New parenchymal bleed probably related to venous back pressure from venous obstruction. Morbidity is so high without therapy that we will continue anticoagulation. Review of recent literature indicates that risk of catastrophic parenchymal hemorrhage is low. Discussed with all consultants. Prognosis guarded. Critical care 38 mins Behzad Blanco MD May 11, 2017 08:52
[2017-05-11] MEDS: SODIUM CHLORIDE 0.9% FLUSH 10 ML FLUSH IV FLUSH SCH ×2 (09:00→19:55)
[2017-05-11] MEDS ORDERED: GADODIAMIDE PF 287 MG/ML 5 ML VIAL (for RAD MRI) IVCONTRAST ONE (09:56)
--- NOTE | 2017-05-11 10:37 | RADRPT ---
EXAM DATE/TIME: 05/11/2017 09:44 [facility] COMPARISON: CT BRAIN W/O CONTRAST, May 09, 2017, 17:17. INDICATIONS : Hemorrhage. Mass. Altered mental status. CONTRAST: 12 cc Omniscan (gadodiamide) IV MEDICAL HISTORY : Diabetes mellitus type 2. Hypertension. Dementia. SURGICAL HISTORY : None. ENCOUNTER: Initial ACUITY: 2 day PAIN SCORE: 2/10 LOCATION: head TECHNIQUE: Multiplanar, multisequence MRI of the brain was performed both prior to and following the administrat ion of paramagnetic contrast. FINDINGS: Hemorrhagic 2.3 cm mass is seen in the left occipital region that does not show significant contrast enhancement. This is associated with very minimal localized edema. Moderate periventricular white m atter changes are noted. The right hemisphere is unremarkable The posterior fossa appears normal There is minimal dural thrombus identified in the posterior sagittal sinus that extends into the left sigmoid sinus. The deep cerebral veins appear patent. The posterior fossa is unremarkable. The sk ull base appears normal. There is no other abnormal areas of contrast enhancement. CONCLUSION: Abnormality left proximal region is most likely an infarct that may be related to the venous thrombosis. This can be followed by MRI to ensure it is resolving as expected.. Base on MRI and CT the age of this would be similar between 3-5 days. Arvind Power MD FACR on May 11, 2017 at 10:28 Board Certified Radiologist. This report was verified electronically.
[2017-05-11] MEDS: levETIRAcetam 1000 MG INJ 100 ML IV SCH ×2 (10:53→19:55)
[2017-05-11] MEDS: DEXAMETHASONE SOD PHOS 4 MG/ML VIAL IV PUSH SCH ×2 (10:54→19:56)
[2017-05-11] MEDS: FAMOTIDINE 20 MG/2 ML VIAL IV PUSH SCH ×2 (10:55→19:56)
[2017-05-11] MEDS: GABAPENTIN 100 MG CAP PO SCH ×2 (10:55→19:57)
[2017-05-11] MEDS: DOCUSATE SODIUM 50 MG/SENNA 8.6 MG TAB PO SCH ×2 (10:55→19:57)
--- NOTE | 2017-05-11 13:55 | HHI.PR ---
Subjective Remarks much more alert calm some headache earlier medicated on lovenox now. s/p mri brain Objective Vital Signs Date Time Temp Pulse Resp B/P (MAP) Pulse Ox O2 Delivery O2 Flow Rate FiO2 05/11/17 12:00 97.8 80 119/60 (79) 98 05/11/17 12:00 80 05/11/17 10:00 62 05/11/17 08:00 98.1 68 12 130/68 (88) 99 05/11/17 08:00 56 05/11/17 07:00 99 Room Air 05/11/17 06:00 67 05/11/17 04:00 82 05/11/17 04:00 97.3 82 21 117/74 (88) 100 05/11/17 02:00 60 05/11/17 00:00 97.4 64 21 127/58 (81) 100 05/11/17 00:00 64 05/10/17 22:00 54 05/10/17 20:00 97.8 56 14 137/65 (89) 100 05/10/17 20:00 56 05/10/17 19:00 100 Room Air 05/10/17 18:00 56 05/10/17 16:00 98.6 82 15 148/67 (94) 98 05/10/17 16:00 82 05/10/17 14:00 56 I/O 05/10/17 05/10/17 05/10/17 05/11/17 05/11/17 05/11/17 07:00 15:00 23:00 07:00 15:00 23:00 Intake Total 1000 ml 240 ml Balance 1000 ml 240 ml Intake Oral 240 ml IV Total 1000 ml # Voids 4 4 4 # Bowel Movements 0 Result Diagram: 05/10/17 0345 05/11/17 0534 Imaging mri brain c/w left occip.hemor.no enhancement Objective Remarks awake and alert fluent speaks some turkmen now perrla VF seemed intact to exam follows commands motor no drift or leg lag dtrs 1+ gait deferred. pt feeding herself ice cream w/o any issues. Assessment and Plan Assessment and Plan a/p sinus thrombosis with left occip.hemorrhage likely from the venous thrombosis -con't lovenox bid -con't w/u for hypercoag per hematology. -f/u ct brain next 24-48hrs stat if acute change in patient. -PT when stable likely next 48hrs. -rehab consult to consider. d/w son. Mary Huang MD May 11, 2017 13:55
[2017-05-12] VITALS (13 sets, daily range): BP systolic 134–151; BP diastolic 59–68; PULSE 50–86; RESP 12–28; TEMP 97.4–98.5; O2SAT 96–99
[2017-05-12] MEDS: HYDROmorphone HCL PF 1 MG/ML VIAL IV PUSH PRN ×3 (01:22→18:37)
[2017-05-12] MEDS: SODIUM CHLOR 0.9% 1000 ML INJ 1,000 ML IV SCH ×2 (03:02→15:32)
[2017-05-12] MEDS: CHLORHEXIDINE GLUCONATE 2 % 1 PACK (2 CLOTHS) TOP SCH (03:22)
[2017-05-12] MEDS: ENOXAPARIN SODIUM 60 MG/0.6 ML SYRINGE SQ SCH ×2 (04:46→16:20)
[2017-05-12 06:23] LABS: HEMATOCRIT 42.4 % (35.0-46.0); MEAN CORPUSCULAR HEMOGLOBIN 33.6 PG (27.0-34.0); MEAN CORPUSCULAR HGB CONC 33.9 % (32.0-36.0); PLATELET COUNT 181 TH/MM3 (150-450); RED BLOOD COUNT 4.28 MIL/MM3 (4.00-5.30); RED CELL DISTRIBUTION WIDTH 13.5 % (11.6-17.2); REVIEW FLAG FINAL; WHITE BLOOD COUNT 7.6 TH/MM3 (4.0-11.0)
[2017-05-12] MEDS: levETIRAcetam 1000 MG INJ 100 ML IV SCH ×2 (09:43→20:11)
[2017-05-12] MEDS: DEXAMETHASONE SOD PHOS 4 MG/ML VIAL IV PUSH SCH ×2 (09:44→20:12)
[2017-05-12] MEDS: FAMOTIDINE 20 MG/2 ML VIAL IV PUSH SCH ×2 (09:45→20:12)
[2017-05-12] MEDS: DOCUSATE SODIUM 50 MG/SENNA 8.6 MG TAB PO SCH ×2 (09:45→20:11)
[2017-05-12] MEDS: GABAPENTIN 100 MG CAP PO SCH ×2 (09:45→20:11)
[2017-05-12] MEDS: SODIUM CHLORIDE 0.9% FLUSH 10 ML FLUSH IV FLUSH SCH ×2 (09:47→20:12)
--- NOTE | 2017-05-12 09:55 | HHI.CCPN ---
Subjective Remarks/Hospital Course This is a 87-year-old fully pleasant female presented to [facility] complaining of atypical chest pain and headaches. Her workup in the emergency department showed small volume of subarachnoid bleed within the left parietal-occipital region, extensive dural venous sinus thrombosis which involve the superior sagittal sinus striate sinus bilateral transverse sinuses and left sigmoid sinus. There was no aneurysm observed on the CTA brain. The case was discussed by ED attending with Dr. Jarrett/ neurosurgery at [facility] and the patient is transferred to critical care service. 05/10: CT head last evening demonstrated left occipital parenchymal hemorrhage. Discussed in detail with consultants. Assuming parenchymal bleeding is from venous back pressure we will continue anticoagulation, convert to lovenox to produce better steady state therapy. 05/11: Alert. Mild headache persists. Consultants have all discussed with each other the complexities of this case and logic behind anticoagulation. We will look for a prothrombotic condition. Prognosis is guarded. 05/12: Headache is a little worse. MRI with resolving thrombus in sagittal sinus. Remains conversant. Objective Vital Signs Date Time Temp Pulse Resp B/P (MAP) Pulse Ox O2 Delivery O2 Flow Rate FiO2 05/12/17 08:09 99 21 05/12/17 06:00 76 05/12/17 04:00 97.5 15 134/60 (84) 05/11/17 19:00 Room Air Intake and Output 05/12/17 05/12/17 05/13/17 08:00 16:00 00:00 Intake Total 1000 ml Balance 1000 ml Result Diagram: 05/12/17 0525 05/11/17 0534 Objective Remarks GENERAL: Well-nourished, well-developed patient. Very pleasant Tajik- speaking woman, confused. Son interprets. SKIN: Warm and dry. HEAD: Normocephalic. EYES: No scleral icterus. No conjunctival injection or drainage. NECK: Supple, trachea midline. Airway widely patent. CARDIOVASCULAR: Irreg Irreg rate and rhythm without murmurs, gallops, or rubs. Rate 80s RESPIRATORY: Breath sounds equal bilaterally. No accessory muscle use. Clear. Comfortable pattern. GASTROINTESTINAL: Abdomen soft, non-tender, nondistended. BS active. MUSCULOSKELETAL: No cyanosis, or edema. Well perfused. NEURO EXAM: Moves 4 limbs spontaneously, conversant in Tajik. Alert. A/P Assessment and Plan Subarachnoid bleed - Due to venous sinus thrombosis - No aneurysm observed on CTA - Blood pressure control - Neurosurgical consultation is following. Cerebral Vein thrombosis - Heparin drip -> lovenox 60 q12h - Neurology consult following. - Admit to neuro ICU - Neuro checks per unit routine Hypertension - Hold diuretics - Hydralazine and labetalol when necessary - SBP goal less than 140 Seizure - IV Keppra every 12 hours - EEG at the bedside Neuropathy - Home dose of gabapentin DVT GI prophylaxis - Teds SCDs - Heparin drip -> lovenox 60 sq q12h - Pepcid Overall impression: Patient is critically ill with new parenchymal hemorrhages and cerebral vein thrombosis. New parenchymal bleed probably related to venous back pressure from venous obstruction. Morbidity is so high without therapy that we will continue anticoagulation. Review of recent literature indicates that risk of catastrophic parenchymal hemorrhage is low. Discussed with all consultants. Prognosis guarded. New atrial fibrillation with good rate control. Behzad Blanco MD May 12, 2017 09:55
[2017-05-12] MEDS ORDERED: PILL SPLITTER OTHER PRN (10:00)
--- NOTE | 2017-05-12 10:15 | HHI.NSPN ---
History Interval History Mrs. Lewis is awake and alert. She is complaining of mild headache but no worse than yesterday according to her son. Exam Results Vital Signs Date Time Temp Pulse Resp B/P (MAP) Pulse Ox O2 Delivery O2 Flow Rate FiO2 05/12/17 08:09 99 21 05/12/17 06:00 76 05/12/17 04:00 97.5 15 134/60 (84) 05/11/17 19:00 Room Air Intake and Output 05/12/17 05/12/17 05/13/17 08:00 16:00 00:00 Intake Total 1000 ml Balance 1000 ml Physical Examination Patient is awake and alert. She is conversant but confused. Cranial nerves II- XII are intact. Will follow simple commands and moves all 4 extremities equally. Lab, Micro, Other Results Last Impressions Brain MRI 05/11/17 0000 Signed Impressions: Service Date/Time: Thursday, May 11, 2017 09:44 - CONCLUSION: Abnormality left proximal region is most likely an infarct that may be related to the venous thrombosis. This can be followed by MRI to ensure it is resolving as expected.. Base on MRI and CT the age of this would be similar between 3-5 days. Arvind Power MD FACR Head CT 05/09/17 0000 Signed Impressions: Service Date/Time: Tuesday, May 09, 2017 17:17 - CONCLUSION: 1. Left posterior occipital mid convexity interparenchymal hemorrhage measuring approximately 2.9 x 2.4 cm with associated regional subarachnoid blood products. No significant hydrocephalus, midline shift or herniation at this time. Hemorrhagic mass cannot be excluded. This can be further evaluated with MRI exam as clinically warranted. 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 Patient being treated with anticoagulantion.. Stable neurological examination. Plan: Continue observation. No plans for neurosurgical intervention at this time. Please call for any change in neurologic status. Tenzin Vazquez MD May 12, 2017 10:15
[2017-05-12] MEDS: METOPROLOL TARTRATE 25 MG TAB PO SCH ×2 (10:29→20:11)
--- NOTE | 2017-05-12 12:54 | PD.ONC.PN ---
Subjective Subjective Remarks Afebrile overnight Per RN she went into Afib this am. Hemodynamically stable Currently denies headache Objective Data Date Time Temp Pulse Resp B/P (MAP) Pulse Ox O2 Delivery O2 Flow Rate FiO2 05/12/17 12:00 98.3 50 21 136/59 (84) 98 05/12/17 12:00 50 05/12/17 10:18 17 05/12/17 10:00 86 05/12/17 08:09 99 21 05/12/17 08:00 98.0 62 13 139/67 (91) 99 05/12/17 08:00 62 05/12/17 07:00 98 Room Air 05/12/17 06:00 76 05/12/17 04:00 76 05/12/17 04:00 97.5 76 15 134/60 (84) 96 05/12/17 02:00 60 05/12/17 00:00 97.5 66 12 145/65 (91) 96 05/12/17 00:00 66 05/11/17 22:00 56 05/11/17 20:00 97.5 70 20 120/62 (81) 92 05/11/17 20:00 67 05/11/17 19:00 96 Room Air 05/11/17 18:00 84 05/11/17 16:00 69 05/11/17 16:00 98.0 69 17 132/60 (84) 98 05/11/17 14:00 77 05/12/17 05/12/17 05/12/17 06:59 14:59 22:59 Intake Total 1000 ml Balance 1000 ml Result Diagram: 05/12/17 0525 05/11/17 0534 Laboratory Results Laboratory Tests Test 05/12/17 05:25 White Blood Count 7.6 TH/MM3 Red Blood Count 4.28 MIL/MM3 Hemoglobin 14.4 GM/DL Hematocrit 42.4 % Mean Corpuscular Volume 99.0 FL Mean Corpuscular Hemoglobin 33.6 PG Mean Corpuscular Hemoglobin Concent 33.9 % Red Cell Distribution Width 13.5 % Platelet Count 181 TH/MM3 Mean Platelet Volume 8.3 FL Imaging Studies Last 48 hours Impressions Brain MRI 05/11/17 0000 Signed Impressions: Service Date/Time: Thursday, May 11, 2017 09:44 - CONCLUSION: Abnormality left proximal region is most likely an infarct that may be related to the venous thrombosis. This can be followed by MRI to ensure it is resolving as expected.. Base on MRI and CT the age of this would be similar between 3-5 days. Arvind Power MD FACR Administered Medications Medications (Trade) Dose Ordered Sig/Anand Route PRN Reason Start Time Stop Time Status Last Admin Dose Admin Sodium Chloride 1,000 ml @ 84 mls/hr [id number] IV 05/09/17 03:32 05/12/17 03:02 Sodium Chloride (NS Flush) 2 ml BID IV FLUSH 05/09/17 09:00 05/12/17 09:47 Acetaminophen (Tylenol) 650 mg Q6H PRN PO PAIN 1-5 AND/OR FEVER >101F 05/09/17 03:45 05/11/17 06:40 Ondansetron HCl (Zofran Inj) 4 mg Q6H PRN IV PUSH NAUSEA OR VOMITING 05/09/17 03:45 05/10/17 10:00 Senna/Docusate Sodium (Alissa-Colace) 1 tab BID PO 05/09/17 09:00 05/12/17 09:45 Gabapentin (Neurontin) 100 mg BID PO 05/09/17 09:00 05/12/17 09:45 Levetriacetam 100 ml @ 400 mls/hr Q12HR IV 05/09/17 09:00 05/12/17 09:43 Hydromorphone HCl (Dilaudid Pf Inj) 0.2 mg Q4H PRN IV PUSH pain > 5/10 05/09/17 07:00 05/12/17 09:47 Dexamethasone Sodium Phosphate (Decadron Inj) 2 mg Q12HR IV PUSH 05/09/17 11:15 05/12/17 09:44 Enoxaparin Sodium (Lovenox Inj) 60 mg Q12H SQ 05/10/17 16:00 05/12/17 04:46 Famotidine (Pepcid Inj) 10 mg Q12HR IV PUSH 05/10/17 21:00 05/12/17 09:45 Hydralazine HCl (Apresoline Inj) 10 mg Q4H PRN IV PUSH SBP >140 05/10/17 23:30 05/11/17 22:43 Metoprolol Tartrate (Lopressor) 12.5 mg Q12HR PO 05/12/17 10:00 05/12/17 10:29 Objective Remarks GENERAL: Frail, elderly female resting in bed in no acute distress. SKIN: Warm and dry. No oozing from lines. HEAD: Normocephalic. EYES: No injection or drainage. NECK: Supple, trachea midline. CARDIOVASCULAR: Regular rate and rhythm without murmurs. RESPIRATORY: Clear anteriorly. Breathing unlabored. GASTROINTESTINAL: Abdomen soft, non-tender, nondistended. EXTREMITIES: No cyanosis, or edema. MUSCULOSKELETAL: Generalized weakness. NEUROLOGICAL: Limited Chadian but normal speech. Follows commands. Alert. Assessment/Plan Problem List: (1) Dural sinus thrombosis ICD Codes: G08 - Intracranial and intraspinal phlebitis and thrombophlebitis Plan: -- Found in the setting accompanied with SAH -- Currently on therapeutic Lovenox 60mg SQ BID -- The assumption is the back pressure resulting from the dural sinus thrombosis has resulted in the rupture of the arterioles in the brain parenchyma resulting in the bleeding. -- Repeat MRI on 05/11 shows Assessment 87 y/o female with dementia admitted for dural sinus thrombosis as well as a subarachnoid hemorrhage. Hematology consulted for competing needs. Plan 1. Continue Lovenox 2. Will defer to Neurology for oil heaterman anticoagulation 3. Monitor CBC 4. Continue supportive care. Attending Statement The exam, history, and the medical decision-making described in the above note were completed with the assistance of the mid-level provider. I reviewed and agree with the findings presented. I attest that I had a [id number] encounter with the patient on the same day, and personally performed and documented my assessment and findings in the medical record Dural sinus thrombosis and subarachnoid hemorrhage on Lovenox more alert baseline dementia Hb stable Hypercoagulable w/u pending APPEARS TO BE SUN-DOWNING/DELIRIUM--EXPOSE TO SUNLIGHT DURING THE DAY d/c to rehab Akiko Burnette May 12, 2017 12:54 Dane Rodriguez MD May 12, 2017 14:09
[2017-05-12] MEDS: hydrALAZINE HCL 20 MG/ML VIAL IV PUSH PRN (20:48)
[2017-05-13] VITALS (12 sets, daily range): BP systolic 113–142; BP diastolic 56–66; PULSE 44–59; RESP 11–24; TEMP 97.2–98.3; O2SAT 95–100
[2017-05-13] MEDS: HYDROmorphone HCL PF 1 MG/ML VIAL IV PUSH PRN ×3 (01:40→13:21)
[2017-05-13] MEDS: CHLORHEXIDINE GLUCONATE 2 % 1 PACK (2 CLOTHS) TOP SCH (04:00)
[2017-05-13] MEDS: ENOXAPARIN SODIUM 60 MG/0.6 ML SYRINGE SQ SCH ×2 (04:18→17:01)
[2017-05-13] MEDS: SODIUM CHLOR 0.9% 1000 ML INJ 1,000 ML IV SCH ×2 (04:22→15:40)
[2017-05-13] MEDS: hydrALAZINE HCL 20 MG/ML VIAL IV PUSH PRN (05:06)
--- NOTE | 2017-05-13 07:01 | HHI.CCPN ---
Subjective Remarks/Hospital Course This is a 87-year-old fully pleasant female presented to [facility] complaining of atypical chest pain and headaches. Her workup in the emergency department showed small volume of subarachnoid bleed within the left parietal-occipital region, extensive dural venous sinus thrombosis which involve the superior sagittal sinus striate sinus bilateral transverse sinuses and left sigmoid sinus. There was no aneurysm observed on the CTA brain. The case was discussed by ED attending with Dr. Jarrett/ neurosurgery at [facility] and the patient is transferred to critical care service. 05/10: CT head last evening demonstrated left occipital parenchymal hemorrhage. Discussed in detail with consultants. Assuming parenchymal bleeding is from venous back pressure we will continue anticoagulation, convert to lovenox to produce better steady state therapy. 05/11: Alert. Mild headache persists. Consultants have all discussed with each other the complexities of this case and logic behind anticoagulation. We will look for a prothrombotic condition. Prognosis is guarded. 05/12: Headache is a little worse. MRI with resolving thrombus in sagittal sinus. Remains conversant. 11.12: Tolerating lovenox. Moderate headache, no new neurological symptoms. Objective Vital Signs Date Time Temp Pulse Resp B/P (MAP) Pulse Ox O2 Delivery O2 Flow Rate FiO2 05/13/17 06:00 59 05/13/17 04:00 97.2 19 142/66 (91) 95 05/12/17 19:00 Room Air 05/12/17 08:09 21 Intake and Output 05/13/17 05/13/17 05/14/17 08:00 16:00 00:00 Intake Total 941 ml Balance 941 ml Result Diagram: 05/12/17 0525 05/11/17 0534 Objective Remarks GENERAL: Well-nourished, well-developed patient. Pleasant Maltese-speaking woman , confused. Son interprets for her. SKIN: Warm and dry. HEAD: Normocephalic. EYES: No scleral icterus. No conjunctival injection or drainage. NECK: Supple, trachea midline. Airway widely patent. CARDIOVASCULAR: Irreg Irreg rate and rhythm without murmurs, gallops, or rubs. Rate 80s RESPIRATORY: Breath sounds equal bilaterally. No accessory muscle use. Clear. Comfortable pattern. GASTROINTESTINAL: Abdomen soft, non-tender, nondistended. BS active. No guarding. MUSCULOSKELETAL: No cyanosis, or edema. Well perfused. NEURO EXAM: Moves 4 limbs spontaneously, conversant in Maltese. Alert. Mild chronic dementia. A/P Assessment and Plan Subarachnoid bleed - Due to cerebral vein thrombosis - No aneurysm observed on CTA - Blood pressure control - Neurosurgical consultation is following. Cerebral Vein thrombosis - Heparin drip -> lovenox 60 q12h - Neurology consult following. - Admit to neuro ICU - Neuro checks per unit routine Hypertension - Hold diuretics - Hydralazine and labetalol when necessary - SBP goal less than 140 Seizure - IV Keppra every 12 hours - EEG at the bedside Neuropathy - Home dose of gabapentin DVT GI prophylaxis - Teds SCDs - Heparin drip -> lovenox 60 sq q12h - Pepcid Overall impression: Patient is ill with new parenchymal hemorrhages and cerebral vein thrombosis. New parenchymal bleed probably related to venous back pressure from venous obstruction. Morbidity is so high without therapy that we will continue anticoagulation. Review of recent literature indicates that risk of catastrophic parenchymal hemorrhage is low. Discussed with all consultants. Prognosis guarded. New atrial fibrillation with good rate control. Behzad Blanco MD May 13, 2017 07:01
[2017-05-13] MEDS: SODIUM CHLORIDE 0.9% FLUSH 10 ML FLUSH IV FLUSH SCH ×2 (09:00→20:02)
[2017-05-13] MEDS: levETIRAcetam 1000 MG INJ 100 ML IV SCH ×2 (09:00→20:01)
[2017-05-13] MEDS: DEXAMETHASONE SOD PHOS 4 MG/ML VIAL IV PUSH SCH ×2 (09:00→20:02)
[2017-05-13] MEDS: FAMOTIDINE 20 MG/2 ML VIAL IV PUSH SCH ×2 (09:01→20:02)
[2017-05-13] MEDS: METOPROLOL TARTRATE 25 MG TAB PO SCH ×2 (09:01→20:02)
[2017-05-13] MEDS: DOCUSATE SODIUM 50 MG/SENNA 8.6 MG TAB PO SCH ×2 (09:01→20:02)
[2017-05-13] MEDS: GABAPENTIN 100 MG CAP PO SCH ×2 (09:01→20:02)
--- NOTE | 2017-05-13 13:19 | EKG ---
Date Performed: 05/12/2017 Time Performed: 09:23:20 PTAGE: 87 years EKG: Atrial fibrillation with PVC(s) or aberrant ventricular conduction. Extensive ST-T changes are nonspecific Abnormal ECG NO PREVIOUS TRACING DOCTOR: Mendez Lubin Interpretating Date/Time 05/13/2017 13:19:10
[2017-05-14] VITALS (10 sets, daily range): BP systolic 113–141; BP diastolic 55–78; PULSE 43–83; RESP 13–26; TEMP 97.4–98.1; O2SAT 97–100
[2017-05-14] MEDS: HYDROmorphone HCL PF 1 MG/ML VIAL IV PUSH PRN (01:03)
[2017-05-14] MEDS: CHLORHEXIDINE GLUCONATE 2 % 1 PACK (2 CLOTHS) TOP SCH (01:33)
[2017-05-14] MEDS: hydrALAZINE HCL 20 MG/ML VIAL IV PUSH PRN (01:33)
[2017-05-14] MEDS: SODIUM CHLOR 0.9% 1000 ML INJ 1,000 ML IV SCH ×2 (04:39→14:37)
[2017-05-14] MEDS: ENOXAPARIN SODIUM 60 MG/0.6 ML SYRINGE SQ SCH ×2 (04:41→17:44)
[2017-05-14] MEDS: SODIUM CHLORIDE 0.9% FLUSH 10 ML FLUSH IV FLUSH SCH ×2 (09:00→21:00)
[2017-05-14] MEDS: METOPROLOL TARTRATE 25 MG TAB PO SCH ×2 (09:00→21:50)
[2017-05-14] MEDS: FAMOTIDINE 20 MG/2 ML VIAL IV PUSH SCH ×2 (09:20→21:46)
[2017-05-14] MEDS: levETIRAcetam 1000 MG INJ 100 ML IV SCH ×2 (09:20→21:45)
[2017-05-14] MEDS: DEXAMETHASONE SOD PHOS 4 MG/ML VIAL IV PUSH SCH ×2 (09:21→21:46)
[2017-05-14] MEDS: DOCUSATE SODIUM 50 MG/SENNA 8.6 MG TAB PO SCH ×2 (09:22→21:46)
[2017-05-14] MEDS: GABAPENTIN 100 MG CAP PO SCH ×2 (09:22→21:46)
--- NOTE | 2017-05-14 11:06 | HHI.CCPN ---
Subjective Remarks/Hospital Course This is a 87-year-old fully pleasant female presented to [facility] complaining of atypical chest pain and headaches. Her workup in the emergency department showed small volume of subarachnoid bleed within the left parietal-occipital region, extensive dural venous sinus thrombosis which involve the superior sagittal sinus striate sinus bilateral transverse sinuses and left sigmoid sinus. There was no aneurysm observed on the CTA brain. The case was discussed by ED attending with Dr. Jarrett/ neurosurgery at [facility] and the patient is transferred to critical care service. 05/10: CT head last evening demonstrated left occipital parenchymal hemorrhage. Discussed in detail with consultants. Assuming parenchymal bleeding is from venous back pressure we will continue anticoagulation, convert to lovenox to produce better steady state therapy. 05/11: Alert. Mild headache persists. Consultants have all discussed with each other the complexities of this case and logic behind anticoagulation. We will look for a prothrombotic condition. Prognosis is guarded. 05/12: Headache is a little worse. MRI with resolving thrombus in sagittal sinus. Remains conversant. 05/13: Tolerating lovenox. Moderate headache, no new neurological symptoms. 05/14: Patient with cerebral vein thrombosis teated with heparin and converted to lovenox. She developed parenchymal hemorrhage but consensus of consultants is to continue heparin. When stable patient will go home with family. She has headaches as predominant symptom. Objective Vital Signs Date Time Temp Pulse Resp B/P (MAP) Pulse Ox O2 Delivery O2 Flow Rate FiO2 05/14/17 06:00 58 05/14/17 04:00 97.8 26 119/57 (77) 99 05/13/17 19:00 Room Air 05/12/17 08:09 21 Intake and Output 05/14/17 05/14/17 05/15/17 08:00 16:00 00:00 Intake Total 1000 ml Balance 1000 ml Result Diagram: 05/12/17 0525 05/11/17 0534 Objective Remarks GENERAL: Well-nourished, well-developed patient. Pleasant Peruvian-speaking woman , confused. Son interprets for her. SKIN: Warm and dry. HEAD: Normocephalic. EYES: No scleral icterus. No conjunctival injection or drainage. NECK: Supple, trachea midline. Airway widely patent. CARDIOVASCULAR: Irreg Irreg rate and rhythm without murmurs, gallops, or rubs. Rate 80s RESPIRATORY: Breath sounds equal bilaterally. No accessory muscle use. Clear. Comfortable pattern. GASTROINTESTINAL: Abdomen soft, non-tender, nondistended. BS active. No guarding. MUSCULOSKELETAL: No cyanosis, or edema. Well perfused. NEURO EXAM: Moves 4 limbs spontaneously, conversant in Peruvian. Alert. Mild chronic dementia though not received well by all family members. A/P Assessment and Plan Subarachnoid bleed - Due to cerebral vein thrombosis - No aneurysm observed on CTA - Blood pressure control - Neurosurgical consultation is following. Cerebral Vein thrombosis - Heparin drip -> lovenox 60 q12h - Neurology consult following. - Transfer Hypertension - Hold diuretics - Hydralazine and labetalol when necessary - SBP goal less than 140 Seizure - IV Keppra every 12 hours - EEG at the bedside Neuropathy - Home dose of gabapentin DVT GI prophylaxis - Teds SCDs - Heparin drip -> lovenox 60 sq q12h - Pepcid Overall impression: Patient is ill with new parenchymal hemorrhages and cerebral vein thrombosis. New parenchymal bleed probably related to venous back pressure from venous obstruction. Morbidity is so high without therapy that we will continue anticoagulation. Review of recent literature indicates that risk of catastrophic parenchymal hemorrhage is low and anticoagulation needs to be continued. Discussed with all consultants. Prognosis guarded. New atrial fibrillation with good rate control. Behzad Blanco MD May 14, 2017 11:06
--- NOTE | 2017-05-14 16:53 | HHI.NSPN ---
Note Status Status: Progress Note Interval History Diagnosis Sinus thrombosis Interval History This is a 87-year-old fully pleasant female presented to [facility] complaining of atypical chest pain and headaches. Her workup in the emergency department showed small volume of subarachnoid bleed within the left parietal-occipital region, extensive dural venous sinus thrombosis which involve the superior sagittal sinus striate sinus bilateral transverse sinuses and left sigmoid sinus. There was no aneurysm observed on the CTA brain. she has history of dementia. She is alert and confused, at baseline. She moves all 4 extremities without focal weakness. neurosurgical consultation was requested. 05/10. Clinically stable. Follow up CT brain done today 05/14. Alert, awake. She remains confused. Reports headaches Labs, Micro, & Vital Signs Results Date Time Temp Pulse Resp B/P (MAP) Pulse Ox O2 Delivery O2 Flow Rate FiO2 05/14/17 16:30 97.4 80 18 134/68 (90) 100 05/14/17 14:00 58 05/14/17 12:00 62 05/14/17 12:00 98.1 62 13 116/78 (91) 98 05/14/17 10:00 60 05/14/17 08:00 97.7 54 15 133/63 (86) 97 05/14/17 08:00 54 05/14/17 07:00 98 Room Air 05/14/17 06:00 58 05/14/17 04:00 73 05/14/17 04:00 97.8 73 26 119/57 (77) 99 05/14/17 02:00 52 05/14/17 01:34 11 05/14/17 00:00 97.7 43 15 141/65 (90) 98 05/14/17 00:00 43 05/13/17 22:00 48 05/13/17 20:00 54 05/13/17 20:00 97.5 54 24 121/58 (79) 100 05/13/17 19:00 100 Room Air 05/13/17 18:00 57 Constitutional Vital Signs Date Time Temp Pulse Resp B/P (MAP) Pulse Ox O2 Delivery O2 Flow Rate FiO2 05/14/17 16:30 97.4 80 18 134/68 (90) 100 05/14/17 14:00 58 05/14/17 12:00 62 05/14/17 12:00 98.1 62 13 116/78 (91) 98 05/14/17 10:00 60 05/14/17 08:00 97.7 54 15 133/63 (86) 97 05/14/17 08:00 54 05/14/17 07:00 98 Room Air 05/14/17 06:00 58 05/14/17 04:00 73 05/14/17 04:00 97.8 73 26 119/57 (77) 99 05/14/17 02:00 52 05/14/17 01:34 11 05/14/17 00:00 97.7 43 15 141/65 (90) 98 05/14/17 00:00 43 05/13/17 22:00 48 05/13/17 20:00 54 05/13/17 20:00 97.5 54 24 121/58 (79) 100 05/13/17 19:00 100 Room Air 05/13/17 18:00 57 Physical Exam Patient is awake and alert. She is conversant but confused. Cranial nerves II- XII are intact. Will follow simple commands and moves all 4 extremities equally. Medications Current Medications Current Medications Sodium Chloride 1,000 ml @ 84 mls/hr [id number] IV Last administered on 15:11; Start 05/09/17 at 03:32 Sodium Chloride (NS Flush) 2 ml UNSCH PRN IV FLUSH FLUSH AFTER USING IV ACCESS ; Start 05/09/17 at 03:45 Sodium Chloride (NS Flush) 2 ml BID IV FLUSH Last administered on 05/15/17 09 :34; Start 05/09/17 at 09:00 Acetaminophen (Tylenol) 650 mg Q6H PRN PO PAIN 1-5 AND/OR FEVER >101F Last administered on 05/11/17 06:40; Start 05/09/17 at 03:45 Oxycodone/ Acetaminophen (Percocet 5-325 Mg) 1 tab Q4H PRN PO PAIN SCALE 1 TO 5 Last administered on 05/15/17 10:09; Start 05/09/17 at 03:45 Famotidine (Pepcid Inj) 20 mg Q12HR IV PUSH Last administered on 05/10/17 09: 25; Start 05/09/17 at 09:00; Stop 05/10/17 at 15:31; Status DC Ondansetron HCl (Zofran Inj) 4 mg Q6H PRN IV PUSH NAUSEA OR VOMITING Last administered on 05/10/17 10:00; Start 05/09/17 at 03:45 Albuterol/ Ipratropium (Duoneb Neb) 1 ampule Q2HR NEB PRN INH WHEEZING; Start 05/09/17 at 03:45 Miscellaneous Information 1 [id number] XX ; Start 05/09/17 at 03:45 Chlorhexidine Gluconate (Chlorhexidine 2% Cloth) Taper DAILY@04 TOP ; Start 05/09/17 at 04:00; Stop 05/05/18 at 03:59 Chlorhexidine Gluconate (Chlorhexidine 2% Cloth) 3 pack UNSCH PRN TOP HYGIENIC CARE; Start 05/09/17 at 03:45 Senna/Docusate Sodium (Alissa-Colace) 1 tab BID PO Last administered on 09:35; Start 05/09/17 at 09:00 Magnesium Hydroxide (Milk Of Magnesia Liq) 30 ml Q12H PRN PO Mild constipation ; Start 05/09/17 at 03:45 Sennosides (Senokot) 17.2 mg Q12H PRN PO Moderate constipation Last administered on 05/13/17 09:01; Start 05/09/17 at 03:45 Bisacodyl (Dulcolax Supp) 10 mg DAILY PRN RECTAL SEVERE CONSITIPATION Last administered on 05/14/17 13:53; Start 05/09/17 at 03:45 Lactulose (Lactulose Liq) 30 ml DAILY PRN PO SEVERE CONSITIPATION Last administered on 05/14/17 13:53; Start 05/09/17 at 03:45 Dexamethasone (Decadron) 2 mg DAILY PO ; Start 05/09/17 at 09:00; Stop 05/09/17 at 11:04; Status DC Gabapentin (Neurontin) 100 mg BID PO Last administered on 05/15/17 09:35; Start 05/09/17 at 09:00 Heparin Sodium/ Dextrose 250 ml @ 7 mls/hr TITRATE PRN IV Coagulation Management Last administered on 05/10/17 07:32; Start 05/09/17 at 03:45; Stop 05/10/17 at 09:06; Status DC Levetriacetam 100 ml @ 400 mls/hr Q12HR IV Last administered on 05/15/17 09: 31; Start 05/09/17 at 09:00 Hydromorphone HCl (Dilaudid Pf Inj) 0.2 mg Q4H PRN IV PUSH pain > 5/10 Last administered on 05/14/17 01:03; Start 05/09/17 at 07:00 Levetriacetam 100 ml @ 400 mls/hr Q12HR IV ; Start 05/09/17 at 09:00; Stop 05/09/17 at 09:00; Status DC Lorazepam (Ativan Inj) 1 mg Q15M PRN IV PUSH seizure; Start 05/09/17 at 07:15 Dexamethasone Sodium Phosphate (Decadron Inj) 2 mg Q12HR IV PUSH Last administered on 05/15/17 09:34; Start 05/09/17 at 11:15 Enoxaparin Sodium (Lovenox Inj) 60 mg Q12H SQ Last administered on 05/15/17 16:37; Start 05/10/17 at 16:00 Famotidine (Pepcid Inj) 10 mg Q12HR IV PUSH Last administered on 05/15/17 09: 34; Start 05/10/17 at 21:00 Hydralazine HCl (Apresoline Inj) 10 mg Q4H PRN IV PUSH SBP >140 Last administered on 05/14/17 01:33; Start 05/10/17 at 23:30 Gadodiamide (Omniscan Pf Inj) 12 ml STK-MED ONCE IVCONTRAST Last administered on 05/11/17 09:56; Start 05/11/17 at 09:56; Stop 05/11/17 at 09:57; Status DC Metoprolol Tartrate (Lopressor) 12.5 mg Q12HR PO Last administered on 09:35; Start 05/12/17 at 10:00 Miscellaneous (Pill Splitter) 1 ea UNSCH PRN OTHER SEE LABEL COMMENTS; Start 05/12/17 at 10:00 Medical Decision Making MDM Remarks Last [address] 05/09/17 0000 Signed Impressions: Service Date/Time: Tuesday, May 09, 2017 17:17 - CONCLUSION: 1. Left posterior occipital mid convexity interparenchymal hemorrhage measuring approximately 2.9 x 2.4 cm with associated regional subarachnoid blood products. No significant hydrocephalus, midline shift or herniation at this time. Hemorrhagic mass cannot be excluded. This can be further evaluated with MRI exam as clinically warranted. Pa Sanchez MD Plan Plan Remarks Caprini VTE Risk Assessment Caprini VTE Risk Assessment: Mod/High Risk (score >= 2) Caprini Risk Assessment Model Point Value = 1 Point Value = 2 Point Value = 3 Point Value = 5 Age 41-60 Minor surgery BMI > 25 kg/m2 Swollen legs Varicose veins or History of unexplained or recurrent spontaneous Oral contraceptives or hormone replacement Sepsis (< 1 month) Serious lung disease, including pneumonia (< 1 month) Abnormal pulmonary function Acute myocardial infarction Congestive heart failure (< 1 month) History of inflammatory bowel disease Medical patient at bed rest Age 61-74 Arthroscopic surgery Major open surgery (> 45 min) Laparoscopic surgery (> 45 min) Malignancy Confined to bed (> 72 hours) Immobilizing plaster cast Central venous access Age >= 75 History of VTE Family history of VTE Factor V Leiden Prothrombin [id number] Lupus anticoagulant Anticardiolipin antibodies Elevated serum homocysteine Heparin-induced thrombocytopenia Other congenital or acquired thrombophilia Stroke (< 1 month) Elective arthroplasty Hip, pelvis, or leg fracture Acute spinal cord injury (< 1 month) Prophylaxis Regimen Total Risk Factor Score Risk Level Prophylaxis Regimen 0-1 Low Early ambulation 2 Moderate Order ONE of the following: *Sequential Compression Device (SCD) *Heparin 5000 units SQ BID 3-4 Higher Order ONE of the following medications: *Heparin 5000 units SQ TID *Enoxaparin/Lovenox 40 mg SQ daily (WT < 150 kg, CrCl > 30 mL/min) *Enoxaparin/Lovenox 30 mg SQ daily (WT < 150 kg, CrCl > 10-29 mL/min) *Enoxaparin/Lovenox 30 mg SQ BID (WT < 150 kg, CrCl > 30 mL/min) AND/OR *Sequential Compression Device (SCD) 5 or more Highest Order ONE of the following medications: *Heparin 5000 units SQ TID (Preferred with Epidurals) *Enoxaparin/Lovenox 40 mg SQ daily (WT < 150 kg, CrCl > 30 mL/min) *Enoxaparin/Lovenox 30 mg SQ daily (WT < 150 kg, CrCl > 10-29 mL/min) *Enoxaparin/Lovenox 30 mg SQ BID (WT < 150 kg, CrCl > 30 mL/min) AND *Sequential Compression Device (SCD) Attending Statement Neuro. neuro checks. Sinus thrombosis. Follow up CT brain today I will manage her subarachnoid hemorrhage, I will kindly defer management of the thrombosis and anticoagulation to neurology. Pulmonary.aggressive pulmonary toilette, nasotracheal suction, and breathing treatments with nebulizers. The patient has comorbidities including Alcohol intoxication, Diabetes mellitus , Thrombocytopenia, Hepatitis C, which increase the risk for developing complications. Nutrition. Oral diet ADA 2000 Asif Renal. monitor closely urine output, BUN and creatinine Diabetes mellitus. Monitor serial Acu checks and SSI as needed in detail ID monitor for signs of infection Protonix for stress ulcer prophylaxis Perez jacinto and SCD's for DVT prophylaxis Mikhail Jarrett MD May 14, 2017 16:53
[2017-05-15] VITALS: BP 140/67; PULSE 61; RESP 18; TEMP 97.4; O2SAT 99
[2017-05-15] MEDS: SODIUM CHLOR 0.9% 1000 ML INJ 1,000 ML IV SCH ×2 (02:32→15:11)
[2017-05-15 04:00] VITALS: BP 137/66; PULSE 58; RESP 18; TEMP 97.3; O2SAT 99
[2017-05-15] MEDS: ENOXAPARIN SODIUM 60 MG/0.6 ML SYRINGE SQ SCH ×2 (04:00→16:37)
[2017-05-15] MEDS: CHLORHEXIDINE GLUCONATE 2 % 1 PACK (2 CLOTHS) TOP SCH (04:00)
[2017-05-15 08:10] VITALS: BP 147/67; PULSE 66; RESP 18; TEMP 97.6; O2SAT 98
--- NOTE | 2017-05-15 08:30 | PD.ONC.PN ---
Subjective Subjective Remarks Patient was seen and examined, vital signs, labs, medications, imaging studies as well as center consultant notes reviewed. The patient's son was at bedside and I spoke to him as well. Subjectively; the patient indicates headache, per the son the headache has been worse over the past 12 hours or so. She has been eating well, has been ambulating with the help of physical therapy in the hallway and yesterday was transferred from the critical care unit to the [facility] unit. She remains on therapeutic anticoagulation with Lovenox and has been on this since 05/10/2017. Objective Data Date Time Temp Pulse Resp B/P (MAP) Pulse Ox O2 Delivery O2 Flow Rate FiO2 05/15/17 08:10 97.6 66 18 147/67 (93) 98 05/15/17 04:00 97.3 58 18 137/66 (89) 99 05/15/17 00:00 97.4 61 18 140/67 (91) 99 05/14/17 20:00 97.8 83 18 113/55 (74) 97 05/14/17 16:30 97.4 80 18 134/68 (90) 100 05/14/17 14:00 58 05/14/17 12:00 62 05/14/17 12:00 98.1 62 13 116/78 (91) 98 05/14/17 10:00 60 Result Diagram: 05/12/17 0525 05/11/17 0534 Administered Medications Medications (Trade) Dose Ordered Sig/Anand Route PRN Reason Start Time Stop Time Status Last Admin Dose Admin Sodium Chloride 1,000 ml @ 84 mls/hr [id number] IV 05/09/17 03:32 05/15/17 02:32 Sodium Chloride (NS Flush) 2 ml BID IV FLUSH 05/09/17 09:00 05/14/17 09:00 Acetaminophen (Tylenol) 650 mg Q6H PRN PO PAIN 1-5 AND/OR FEVER >101F 05/09/17 03:45 05/11/17 06:40 Ondansetron HCl (Zofran Inj) 4 mg Q6H PRN IV PUSH NAUSEA OR VOMITING 05/09/17 03:45 05/10/17 10:00 Senna/Docusate Sodium (Alissa-Colace) 1 tab BID PO 05/09/17 09:00 05/14/17 21:46 Sennosides (Senokot) 17.2 mg Q12H PRN PO Moderate constipation 05/09/17 03:45 05/13/17 09:01 Bisacodyl (Dulcolax Supp) 10 mg DAILY PRN RECTAL SEVERE CONSITIPATION 05/09/17 03:45 05/14/17 13:53 Lactulose (Lactulose Liq) 30 ml DAILY PRN PO SEVERE CONSITIPATION 05/09/17 03:45 05/14/17 13:53 Gabapentin (Neurontin) 100 mg BID PO 05/09/17 09:00 05/14/17 21:46 Levetriacetam 100 ml @ 400 mls/hr Q12HR IV 05/09/17 09:00 05/14/17 21:45 Hydromorphone HCl (Dilaudid Pf Inj) 0.2 mg Q4H PRN IV PUSH pain > 5/10 05/09/17 07:00 05/14/17 01:03 Dexamethasone Sodium Phosphate (Decadron Inj) 2 mg Q12HR IV PUSH 05/09/17 11:15 05/14/17 21:46 Enoxaparin Sodium (Lovenox Inj) 60 mg Q12H SQ 05/10/17 16:00 05/15/17 04:00 Famotidine (Pepcid Inj) 10 mg Q12HR IV PUSH 05/10/17 21:00 05/14/17 21:46 Hydralazine HCl (Apresoline Inj) 10 mg Q4H PRN IV PUSH SBP >140 05/10/17 23:30 05/14/17 01:33 Metoprolol Tartrate (Lopressor) 12.5 mg Q12HR PO 05/12/17 10:00 05/14/17 21:50 Objective Remarks GENERAL APPEARANCE: Ms. Lewis is an elderly female, she appears to be a slight frame, she is laying in bed, she is awake, she is arousable but is not effectively communicative. Her son is at bedside. She appears not to be acutely distressed. HEENT: Head atraumatic, normocephalic, conjunctive are not pale, sclerae are anicteric, EOMI, PERRLA, oral exam dry mucous membranes. NECK: No palpable cervical or supraclavicular lymphadenopathy. RESPIRATORY EXAM: Good air movement bilaterally. No added breath sounds. CARDIOVASCULAR: Bradycardia. Regular rhythm, S1-S2. No obvious murmurs, rubs or gallops. ABDOMINAL EXAM: Thin belly, soft, no palpable organ enlargement, belly is otherwise soft. LOWER EXTREMITIES: No pretibial edema. No calf tenderness. SKIN LIFTER BACON: The patient moves all four limbs spontaneously, she has 5/5 strength over the upper and lower extremities. Assessment/Plan Problem List: (1) Dural sinus thrombosis ICD Codes: G08 - Intracranial and intraspinal phlebitis and thrombophlebitis Plan: -- Found in the setting accompanied with SAH -- Currently on therapeutic Lovenox 60mg SQ BID -- The assumption is the back pressure resulting from the dural sinus thrombosis has resulted in the rupture of the arterioles in the brain parenchyma resulting in the bleeding. -- Repeat MRI on 05/11 shows Assessment 87 y/o female with dementia admitted for dural sinus thrombosis as well as a intraparenchymal brain hemorrhage, it appears the dural sinus thrombosis was the cause of the intracranial/intraparenchymal hemorrhage. Presently on therapeutic anticoagulation with Lovenox. Plan 1. Dural vein thrombosis: Currently on treatment with therapeutic anticoagulation. Antiphospholipid negative, protein C and protein S activity levels are also within normal limits. Factor V Leiden gene mutation is pending, I will add on lupus anticoagulant and anti-thrombin 3 levels as well, to round out the prothrombotic workup. From a clinical standpoint Mr. Lewis appears to be stable to improved. She certainly is displaying no clinical signs or symptoms of progressive intracranial bleeding. Repeat CT had would be beneficial later this week to rule out progression of the intracranial hemorrhage. 2. Will defer to Neurology for ferry terminal agent anticoagulation 3. Monitor CBC 4. Continue supportive care. Jerry Figueroa MD May 15, 2017 08:30
[2017-05-15] MEDS: levETIRAcetam 1000 MG INJ 100 ML IV SCH ×2 (09:31→22:48)
[2017-05-15] MEDS: FAMOTIDINE 20 MG/2 ML VIAL IV PUSH SCH ×2 (09:34→22:47)
[2017-05-15] MEDS: SODIUM CHLORIDE 0.9% FLUSH 10 ML FLUSH IV FLUSH SCH ×2 (09:34→21:00)
[2017-05-15] MEDS: DEXAMETHASONE SOD PHOS 4 MG/ML VIAL IV PUSH SCH ×2 (09:34→22:48)
[2017-05-15] MEDS: METOPROLOL TARTRATE 25 MG TAB PO SCH ×3 (09:35→22:48)
[2017-05-15] MEDS: GABAPENTIN 100 MG CAP PO SCH ×2 (09:35→22:47)
[2017-05-15] MEDS: DOCUSATE SODIUM 50 MG/SENNA 8.6 MG TAB PO SCH ×2 (09:35→22:48)
--- NOTE | 2017-05-15 09:41 | HHI.PR ---
Subjective Remarks Complaints of headaches. No change in vision. No nausea or vomiting. No diarrhea or constipation. She feels tired and appears more confused her son at bedside. Denies fever or chills. No focal deficit. Objective Vitals Vital Signs Date Time Temp Pulse Resp B/P (MAP) Pulse Ox O2 Delivery O2 Flow Rate FiO2 05/15/17 08:10 97.6 66 18 147/67 (93) 98 05/15/17 04:00 97.3 58 18 137/66 (89) 99 05/15/17 00:00 97.4 61 18 140/67 (91) 99 05/14/17 20:00 97.8 83 18 113/55 (74) 97 05/14/17 16:30 97.4 80 18 134/68 (90) 100 05/14/17 14:00 58 05/14/17 12:00 62 05/14/17 12:00 98.1 62 13 116/78 (91) 98 05/14/17 10:00 60 I/O 05/14/17 05/14/17 05/14/17 05/15/17 05/15/17 05/15/17 07:00 15:00 23:00 07:00 15:00 23:00 Intake Total 1000 ml 480 ml Balance 1000 ml 480 ml Intake Oral 0 ml 480 ml IV Total 1000 ml # Voids 2 2 2 # Bowel Movements 0 3 2 Result Diagram: 05/12/17 0525 05/11/17 0534 Imaging Last Impressions Brain MRI 05/11/17 0000 Signed Impressions: Service Date/Time: Thursday, May 11, 2017 09:44 - CONCLUSION: Abnormality left proximal region is most likely an infarct that may be related to the venous thrombosis. This can be followed by MRI to ensure it is resolving as expected.. Base on MRI and CT the age of this would be similar between 3-5 days. Arvind Power MD FACR Head CT 05/09/17 0000 Signed Impressions: Service Date/Time: Tuesday, May 09, 2017 17:17 - CONCLUSION: 1. Left posterior occipital mid convexity interparenchymal hemorrhage measuring approximately 2.9 x 2.4 cm with associated regional subarachnoid blood products. No significant hydrocephalus, midline shift or herniation at this time. Hemorrhagic mass cannot be excluded. This can be further evaluated with MRI exam as clinically warranted. Pa Sanchez MD Objective Remarks GENERAL: Well-nourished, well-developed patient. Pleasant Lebanese-speaking woman , confused, appears lethargic. Son interprets for her. CARDIOVASCULAR: Irreg Irreg rate and rhythm without murmurs, gallops, or rubs. Rate 80s RESPIRATORY: Breath sounds equal bilaterally. No accessory muscle use. Clear. Comfortable pattern. GASTROINTESTINAL: Abdomen soft, non-tender, nondistended. BS active. No guarding. MUSCULOSKELETAL: No cyanosis, or edema. Well perfused. NEURO EXAM: Moves 4 limbs spontaneously, conversant in Lebanese. Alert. Mild chronic dementia though not received well by all family members. A/P Assessment and Plan 87 yo F, ill with new parenchymal hemorrhages and cerebral vein thrombosis. New parenchymal bleed probably related to venous back pressure from venous obstruction. Morbidity is so high without therapy that we will continue anticoagulation. Review of recent literature indicates that risk of catastrophic parenchymal hemorrhage is low and anticoagulation needs to be continued. Discussed with all consultants. Prognosis guarded. New atrial fibrillation with good rate control.Patient currently on lovenox 60 mg SQ BID. Neurology (Dr Huang to decide final anticoagulation recommendation at DC). Subarachnoid bleed secondary to cerebral vein thrombosis - No aneurysm observed on CTA - Blood pressure control - Neurosurgical consultation is following. - Repeat CT head 05/15/17 as patient with headache, confusion. Discusse adilson YE and Dr Jarrett from neurosurgery. - Will check CBC and BMP Cerebral Vein thrombosis - Heparin drip -> lovenox 60 q12h - Neurology consult following. - Transfer Hypertension - Hold diuretics. - Hydralazine and labetalol when necessary - SBP goal less than 140 Seizure - IV Keppra every 12 hours - EEG at the bedside Neuropathy - Home dose of gabapentin DVT GI prophylaxis - Teds SCDs - Heparin drip -> lovenox 60 sq q12h - Pepcid Discussed with the patient, nurse, son at bedside. Case management consulted for DC plan. DC plan: Plan to dc to SNF when cleared by specialists. Will do CT head 05/15. Awaiting final anticoagulation recommendations from neurology for discharge. Marianne Barker MD May 15, 2017 09:41
[2017-05-15 12:09] VITALS: BP 134/63; PULSE 51; RESP 17; TEMP 97.9; O2SAT 98
--- NOTE | 2017-05-15 15:00 | PD.CONS ---
Consult Service Palliative Care . Consult Requested By Dr. Barker . Primary Care Physician Non-Staff . Reason for Consultation a. To assist with evaluation and management of symptoms including: pain, debility, anxiety b. To assist medical decision maker(s) with: better understanding of current medical conditions; weighing benefits/burdens of medical treatment options; making medical treatment decisions. . HPI History of Present Illness Mrs. Lewis is an 87-year-old female with dementia, neuralgia, thrombocytopenia , diabetes, and hepatitis C and hypertension who presented to [facility] on 05/09/2017 with complaints of atypical chest pain and headaches. Her workup in the ED showed a small volume of subarachnoid bleed within the left parietal-occipital region and sinus thromboses No aneurysm observed on CTA. She was noted to have a seizure as well and was started on anti-epileptic medications. The case was discussed with Dr. Jarrett, neurosurgeon at [facility], and the patient was transferred to [place] and admitted to critical care services. Patient was initiated on anticoagulation heparin. The patient was evaluated by neurosurgery and neurology. A decision was made to continue the patient on anticoagulation to relieve back pressure caused by the dural sinus thrombosis which apparently had resulted in the subarachnoid hemorrhage. Hematology was consulted and agreed this appeared to be the most appropriate course of action. Recommendations were made for an MRI which revealed an abnormality in the left proximal region most likely an infarct that could be related to the venous thrombosis. Patient was transferred from the ICU to a regular MedSurg unit. Patient reporting a headache that has progressively worsened over the past 12 hours, lethargic and more confused per son. She has been eating well and ambulating in the hallway with physical therapy. She remains on therapeutic anticoagulation with Lovenox. Palliative Care was consulted to assist with symptom management and to discuss with the family the benefits and burdens of her current illnesses and the options regarding future care. . Function/Cognitive Trajectory The patient lives at home with her son and requires assistance with most ADLs including ambulation and bathing. She has a history of dementia and is quite forgetful. . Review of Systems ROS Limitations: Clinical Condition, Altered Mental Status, Poor Historian Past Family Social History Coded Allergies: No Known Allergies (Unverified , 05/09/17) Past Medical History Hypertension Dementia Diabetes Thrombocytopenia Hepatitis C Neuralgia . Past Surgical History No known surgeries . Reported Medications Triamterene-Hydrochlorothiazide 37.5-25 Mg Cap 1 Cap PO DAILY Tramadol (Tramadol HCl) 50 Mg Tab 50 Mg PO Q6H PRN Dexamethasone 2 Mg Tab 2 Mg PO DAILY Gabapentin 100 Mg Cap 100 Mg PO BID . Current Medications Medications (Trade) Dose Ordered Sig/Anand Route Start Time Stop Time Status Last Admin Sodium Chloride 1,000 ml @ 84 mls/hr [id number] IV 05/09/17 03:32 05/15/17 02:32 (NS Flush) 2 ml UNSCH PRN IV FLUSH 05/09/17 03:45 (NS Flush) 2 ml BID IV FLUSH 05/09/17 09:00 05/15/17 09:34 (Tylenol) 650 mg Q6H PRN PO 05/09/17 03:45 05/11/17 06:40 (Percocet 5-325 Mg) 1 tab Q4H PRN PO 05/09/17 03:45 05/15/17 10:09 (Zofran Inj) 4 mg Q6H PRN IV PUSH 05/09/17 03:45 05/10/17 10:00 (Duoneb Neb) 1 ampule Q2HR NEB PRN INH 05/09/17 03:45 Miscellaneous Information 1 Q361D XX 05/09/17 03:45 (Chlorhexidine 2% Cloth) Taper DAILY@04 TOP 05/09/17 04:00 05/05/18 03:59 (Chlorhexidine 2% Cloth) 3 pack UNSCH PRN TOP 05/09/17 03:45 (Alissa-Colace) 1 tab BID PO 05/09/17 09:00 05/15/17 09:35 (Milk Of Magnesia Liq) 30 ml Q12H PRN PO 05/09/17 03:45 (Senokot) 17.2 mg Q12H PRN PO 05/09/17 03:45 05/13/17 09:01 (Dulcolax Supp) 10 mg DAILY PRN RECTAL 05/09/17 03:45 05/14/17 13:53 (Lactulose Liq) 30 ml DAILY PRN PO 05/09/17 03:45 05/14/17 13:53 (Neurontin) 100 mg BID PO 05/09/17 09:00 05/15/17 09:35 Levetriacetam 100 ml @ 400 mls/hr Q12HR IV 05/09/17 09:00 05/15/17 09:31 (Dilaudid Pf Inj) 0.2 mg Q4H PRN IV PUSH 05/09/17 07:00 05/14/17 01:03 (Ativan Inj) 1 mg Q15M PRN IV PUSH 05/09/17 07:15 (Decadron Inj) 2 mg Q12HR IV PUSH 05/09/17 11:15 05/15/17 09:34 (Lovenox Inj) 60 mg Q12H SQ 05/10/17 16:00 05/15/17 04:00 (Pepcid Inj) 10 mg Q12HR IV PUSH 05/10/17 21:00 05/15/17 09:34 (Apresoline Inj) 10 mg Q4H PRN IV PUSH 05/10/17 23:30 05/14/17 01:33 (Lopressor) 12.5 mg Q12HR PO 05/12/17 10:00 05/15/17 09:35 (Pill Splitter) 1 ea UNSCH PRN OTHER 05/12/17 10:00 . Family History Triamterene-Hydrochlorothiazide 37.5-25 Mg Cap 1 Cap PO DAILY Tramadol (Tramadol HCl) 50 Mg Tab 50 Mg PO Q6H PRN Dexamethasone 2 Mg Tab 2 Mg PO DAILY Gabapentin 100 Mg Cap 100 Mg PO BID . Substance Use Tobacco: None known Alcohol: 2 drinks daily Prescription med abuse: None known Illicits: None known . Psychosocial History Patient is originally from [place]. She was for a short period of time and has 3 adult children. 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 . Spiritual/Cultural Factors Restorationist stevie . Documented care wishes: No known documented care wishes available . Today's verbally stated goals: Patient does not have insight or judgment related to her medical conditions or various treatment options and will not regain capacity in the future. . Family/friends goals: Pending further conversations with patient's family 05/16/17 . Ethical and Legal Issues No known ethical or legal issues at this time. . Physical Exam Vital Signs Date Time Temp Pulse Resp B/P (MAP) Pulse Ox O2 Delivery O2 Flow Rate FiO2 05/15/17 12:09 97.9 51 17 134/63 (86) 98 05/15/17 11:17 18 05/15/17 08:10 97.6 66 18 147/67 (93) 98 05/15/17 04:00 97.3 58 18 137/66 (89) 99 05/15/17 00:00 97.4 61 18 140/67 (91) 99 05/14/17 20:00 97.8 83 18 113/55 (74) 97 05/14/17 16:30 97.4 80 18 134/68 (90) 100 05/15/17 05/16/17 19:00 07:00 Intake Total 1100 ml Balance 1100 ml IV Total 1100 ml # Voids 2 # Bowel Movements 2 Exam CONSTITUTIONAL/GENERAL: This is an adequately nourished patient, in no apparent distress. TUBES/LINES/DRAINS: PIV x 1 SKIN: No jaundice, rashes, or lesions. No wounds seen anteriorly. Skin temperature appropriate. Not diaphoretic. HEAD: Atraumatic. Normocephalic. EYES: Pupils equal and round and reactive. . No scleral icterus. No injection or drainage. Fundi not examined. ENT: Hearing grossly normal. Nose without bleeding or purulent drainage. NECK: Trachea midline. CARDIOVASCULAR: Intermittent bradycardia .no murmurs, gallops, or rubs. No JVD. Peripheral pulses symmetric. RESPIRATORY/CHEST: Symmetric, unlabored respirations. Clear to auscultation. Breath sounds equal bilaterally. No wheezes, rales, or rhonchi. GASTROINTESTINAL: Abdomen soft, non-tender, nondistended. No hepato-splenomegaly , or palpable masses. No guarding. Bowel sounds present. GENITOURINARY: Without palpable bladder distension. Mendosa catheter in place. MUSCULOSKELETAL: Extremities without clubbing, cyanosis, or edema. No mottling or clubbing. LYMPHATICS: No palpable cervical or supraclavicular adenopathy. NEUROLOGICAL: Awake and alert. Motor and sensory grossly within normal limits. Follows commands. Cognitively sharp. Moves all extremities. PSYCHIATRIC: No obvious anxiety/depression. no apparent hallucinations or other psychotic thought process. . Diagnostic Tests Laboratory Laboratory Tests Test 05/15/17 12:45 . Result Diagram: 05/12/17 0525 05/11/17 0534 Imaging Last [address] 05/15/17 0000 Signed Impressions: Service Date/Time: Monday, May 15, 2017 14:23 - CONCLUSION: 1. The only interval change is a slight increase in the cytotoxic edema without mass effect or herniation. No new hemorrhage. Stable previous intraparenchymal and subarachnoid hemorrhage. Parker Sullivan Jr., MD . Patient/Family Conference Present at Family Conference: Spoke with patient's son (Joe) at bedside. . Family Conference Location: Bedside Issues Discussed: * Palliative care role, purpose, approach * Additional medical, psychosocial, and spiritual history * Patients general health, functional status, and cognitive changes in the months leading up to the current hospitalization * Patient/family understanding of the current medical problems * Patient/family understanding of prognosis * Patients goals of care as best understood from advance directives and/or conversations and/or values * Current medical treatment options and benefits/burdens of those options * Likely scenarios comparing ongoing aggressive care with a transition to comfort measures only * Questions answered to the best of my ability * Palliative care contact information provided . Assessment and Plan Disease Oriented Problem List: (1) Diabetes (2) Hypertension (3) Dementia (4) Neuropathy (5) Subarachnoid hemorrhage (6) Dural sinus thrombosis Symptom Scale: (1) Pain (2) Debility (3) Anxiety Pertinent Non-Medical Issues Psychosocial: Patient spent most of her life in [place]. She was for short period of time and had 3 sons. Patient never remarried. She currently lives with her son (Venkata) who assist with her care. 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 Spiritual: Restorationist stevie Legal: Patient does not have insight or judgment related to her medical conditions or various treatment options and will not regain capacity in the future. Per [place] statutes, and absence of written advanced directives healthcare proxy decision making would fall to the patient's 3 adult sons. Ethical issues impacting care: No known ethical issues impacting care at this time. . Important Contacts Venkata Lewis, son: [phone] . Prognosis Patient is ill with new parenchymal hemorrhages and cerebral vein thrombosis. New parenchymal bleed likely related to venous back pressure from venous obstruction. Morbidity is high without therapy so the patient has been kept on anticoagulation therapy. Review of recent literature indicates that risk of catastrophic parenchymal hemorrhage is low and anticoagulation needs to be continued. Prognosis is guarded. Code Status: No Code Plan * DO NOT RESUSCITATE * Decision-making: Patient does not have insight or judgment related to her medical conditions or various treatment options and will not regain capacity in the future. Per [place] statutes, and absence of written advanced directives healthcare proxy decision making would fall to the patient's 3 adult sons. * Goals: Pending further conversation with the patient's children on 05/16/2017 * Palliative care contact information provided to the patient's son; hospice was introduced and will be discussed further tomorrow 05/16/2017. * Symptom management-pain: Presented to ED with complaints of headache and atypical chest pain; having ongoing headaches. PRN acetaminophen or oxycodone are available for pain <5; PRN Dilaudid 0.2 mg IV every 4 hours is available for pain > 5. Patient has received 1 when necessary dose of oxycodone in the past 24 hours. * Symptom management-debility: The patient lives at home with her son and requires assistance with most ADLs including ambulation and bathing. She has a history of dementia and is quite forgetful. * Palliative care will continue to follow this patient throughout her hospitalization to establish chest, assist with symptom management and clarification of medical treatment goals. . Thank you for the opportunity to participate in the care of Ms. Lewis. Lilian Rizo May 15, 2017 15:00
--- NOTE | 2017-05-15 15:13 | RADRPT ---
EXAM DATE/TIME: 05/15/2017 14:23 [facility] COMPARISON: MRI BRAIN W & W/O CONTRAST, May 11, 2017, 9:44. CT BRAIN W/O CONTRAST, May 09, 2017, 17:1 7. INDICATIONS : Intracerebral hemorrhage. RADIATION DOSE: 33.86 CTDIvol (mGy) MEDICAL HISTORY : Cardiovascular disease. Hypertension. SURGICAL HISTORY : None. ENCOUNTER: Subsequent ACUITY: 4 - 6 days PAIN SCALE: 0/10 LOCATION: cranial TECHNIQUE: Multiple contiguous axial images were obtained of the head. Using automated exposure control and adj ustment of the mA and/or kV according to patient size, radiation dose was kept as low as reasonably a chievable to obtain optimal diagnostic quality images. DICOM format image data is available electro nically for review and comparison. FINDINGS: The only interval change from the prior examination has been a slight increase in size of the cytotox ic edema within the left parietal-occipital lobes. There is no mass effect or midline shift. The hemo rrhage is unchanged. No new site of hemorrhage appreciated. Relatively no change in the previous seen hemorrhage. Periventricular low attenuation change consistent with chronic small vessel ischemic justin nge. Paranasal sinuses and mastoid air cells are clear. Calvarium is intact. CONCLUSION: 1. The only interval change is a slight increase in the cytotoxic edema without mass effect or hernia tion. No new hemorrhage. Stable previous intraparenchymal and subarachnoid hemorrhage. Parker Sullivan Jr., MD on May 15, 2017 at 15:04 Board Certified Radiologist. This report was verified electronically.
[2017-05-15 16:38] VITALS: BP 126/60; PULSE 55; RESP 18; TEMP 98.4; O2SAT 98
--- NOTE | 2017-05-15 16:57 | HHI.NSPN ---
Note Status Status: Progress Note Interval History Diagnosis Sinus thrombosis Interval History This is a 87-year-old fully pleasant female presented to [facility] complaining of atypical chest pain and headaches. Her workup in the emergency department showed small volume of subarachnoid bleed within the left parietal-occipital region, extensive dural venous sinus thrombosis which involve the superior sagittal sinus striate sinus bilateral transverse sinuses and left sigmoid sinus. There was no aneurysm observed on the CTA brain. she has history of dementia. She is alert and confused, at baseline. She moves all 4 extremities without focal weakness. neurosurgical consultation was requested. 05/10. Clinically stable. Follow up CT brain done today 05/14. Alert, awake. She remains confused. Reports headaches 05/15. Alert, awake, at baseline. Complaints of headaches. No change in vision. No nausea or vomiting Labs, Micro, & Vital Signs Results Date Time Temp Pulse Resp B/P (MAP) Pulse Ox O2 Delivery O2 Flow Rate FiO2 05/15/17 16:38 98.4 55 18 126/60 (82) 98 05/15/17 12:09 97.9 51 17 134/63 (86) 98 05/15/17 11:17 18 05/15/17 08:10 97.6 66 18 147/67 (93) 98 05/15/17 04:00 97.3 58 18 137/66 (89) 99 05/15/17 00:00 97.4 61 18 140/67 (91) 99 05/14/17 20:00 97.8 83 18 113/55 (74) 97 05/16/17 07:00 Intake Total 1100 ml Balance 1100 ml Constitutional Vital Signs Date Time Temp Pulse Resp B/P (MAP) Pulse Ox O2 Delivery O2 Flow Rate FiO2 05/15/17 16:38 98.4 55 18 126/60 (82) 98 05/15/17 12:09 97.9 51 17 134/63 (86) 98 05/15/17 11:17 18 05/15/17 08:10 97.6 66 18 147/67 (93) 98 05/15/17 04:00 97.3 58 18 137/66 (89) 99 05/15/17 00:00 97.4 61 18 140/67 (91) 99 05/14/17 20:00 97.8 83 18 113/55 (74) 97 05/16/17 07:00 Intake Total 1100 ml Balance 1100 ml Physical Exam Patient is awake and alert. She is conversant but confused. Cranial nerves II- XII are intact. Will follow simple commands and moves all 4 extremities equally. Medications Current Medications Current Medications Sodium Chloride 1,000 ml @ 84 mls/hr [id number] IV Last administered on 15:11; Start 05/09/17 at 03:32 Sodium Chloride (NS Flush) 2 ml UNSCH PRN IV FLUSH FLUSH AFTER USING IV ACCESS ; Start 05/09/17 at 03:45 Sodium Chloride (NS Flush) 2 ml BID IV FLUSH Last administered on 05/15/17 09 :34; Start 05/09/17 at 09:00 Acetaminophen (Tylenol) 650 mg Q6H PRN PO PAIN 1-5 AND/OR FEVER >101F Last administered on 05/11/17 06:40; Start 05/09/17 at 03:45 Oxycodone/ Acetaminophen (Percocet 5-325 Mg) 1 tab Q4H PRN PO PAIN SCALE 1 TO 5 Last administered on 05/15/17 10:09; Start 05/09/17 at 03:45 Famotidine (Pepcid Inj) 20 mg Q12HR IV PUSH Last administered on 05/10/17 09: 25; Start 05/09/17 at 09:00; Stop 05/10/17 at 15:31; Status DC Ondansetron HCl (Zofran Inj) 4 mg Q6H PRN IV PUSH NAUSEA OR VOMITING Last administered on 05/10/17 10:00; Start 05/09/17 at 03:45 Albuterol/ Ipratropium (Duoneb Neb) 1 ampule Q2HR NEB PRN INH WHEEZING; Start 05/09/17 at 03:45 Miscellaneous Information 1 Q361D XX ; Start 05/09/17 at 03:45 Chlorhexidine Gluconate (Chlorhexidine 2% Cloth) Taper DAILY@04 TOP ; Start 05/09/17 at 04:00; Stop 05/05/18 at 03:59 Chlorhexidine Gluconate (Chlorhexidine 2% Cloth) 3 pack UNSCH PRN TOP HYGIENIC CARE; Start 05/09/17 at 03:45 Senna/Docusate Sodium (Alissa-Colace) 1 tab BID PO Last administered on 09:35; Start 05/09/17 at 09:00 Magnesium Hydroxide (Milk Of Magnesia Liq) 30 ml Q12H PRN PO Mild constipation ; Start 05/09/17 at 03:45 Sennosides (Senokot) 17.2 mg Q12H PRN PO Moderate constipation Last administered on 05/13/17 09:01; Start 05/09/17 at 03:45 Bisacodyl (Dulcolax Supp) 10 mg DAILY PRN RECTAL SEVERE CONSITIPATION Last administered on 05/14/17 13:53; Start 05/09/17 at 03:45 Lactulose (Lactulose Liq) 30 ml DAILY PRN PO SEVERE CONSITIPATION Last administered on 05/14/17 13:53; Start 05/09/17 at 03:45 Dexamethasone (Decadron) 2 mg DAILY PO ; Start 05/09/17 at 09:00; Stop 05/09/17 at 11:04; Status DC Gabapentin (Neurontin) 100 mg BID PO Last administered on 05/15/17 09:35; Start 05/09/17 at 09:00 Heparin Sodium/ Dextrose 250 ml @ 7 mls/hr TITRATE PRN IV Coagulation Management Last administered on 05/10/17 07:32; Start 05/09/17 at 03:45; Stop 05/10/17 at 09:06; Status DC Levetriacetam 100 ml @ 400 mls/hr Q12HR IV Last administered on 05/15/17 09: 31; Start 05/09/17 at 09:00 Hydromorphone HCl (Dilaudid Pf Inj) 0.2 mg Q4H PRN IV PUSH pain > 5/10 Last administered on 05/14/17 01:03; Start 05/09/17 at 07:00 Levetriacetam 100 ml @ 400 mls/hr Q12HR IV ; Start 05/09/17 at 09:00; Stop 05/09/17 at 09:00; Status DC Lorazepam (Ativan Inj) 1 mg Q15M PRN IV PUSH seizure; Start 05/09/17 at 07:15 Dexamethasone Sodium Phosphate (Decadron Inj) 2 mg Q12HR IV PUSH Last administered on 05/15/17 09:34; Start 05/09/17 at 11:15 Enoxaparin Sodium (Lovenox Inj) 60 mg Q12H SQ Last administered on 05/15/17 16:37; Start 05/10/17 at 16:00 Famotidine (Pepcid Inj) 10 mg Q12HR IV PUSH Last administered on 05/15/17 09: 34; Start 05/10/17 at 21:00 Hydralazine HCl (Apresoline Inj) 10 mg Q4H PRN IV PUSH SBP >140 Last administered on 05/14/17 01:33; Start 05/10/17 at 23:30 Gadodiamide (Omniscan Pf Inj) 12 ml STK-MED ONCE IVCONTRAST Last administered on 05/11/17 09:56; Start 05/11/17 at 09:56; Stop 05/11/17 at 09:57; Status DC Metoprolol Tartrate (Lopressor) 12.5 mg Q12HR PO Last administered on 09:35; Start 05/12/17 at 10:00 Miscellaneous (Pill Splitter) 1 ea UNSCH PRN OTHER SEE LABEL COMMENTS; Start 05/12/17 at 10:00 Medical Decision Making MDM Remarks Last [address] 05/15/17 0000 Signed Impressions: Service Date/Time: Monday, May 15, 2017 14:23 - CONCLUSION: 1. The only interval change is a slight increase in the cytotoxic edema without mass effect or herniation. No new hemorrhage. Stable previous intraparenchymal and subarachnoid hemorrhage. Parker Sullivan Jr., MD Last [address] 05/09/17 0000 Signed Impressions: Service Date/Time: Tuesday, May 09, 2017 17:17 - CONCLUSION: 1. Left posterior occipital mid convexity interparenchymal hemorrhage measuring approximately 2.9 x 2.4 cm with associated regional subarachnoid blood products. No significant hydrocephalus, midline shift or herniation at this time. Hemorrhagic mass cannot be excluded. This can be further evaluated with MRI exam as clinically warranted. Pa Sanchez MD Plan Plan Remarks Caprini VTE Risk Assessment Caprini VTE Risk Assessment: Mod/High Risk (score >= 2) Caprini Risk Assessment Model Point Value = 1 Point Value = 2 Point Value = 3 Point Value = 5 Age 41-60 Minor surgery BMI > 25 kg/m2 Swollen legs Varicose veins or History of unexplained or recurrent spontaneous Oral contraceptives or hormone replacement Sepsis (< 1 month) Serious lung disease, including pneumonia (< 1 month) Abnormal pulmonary function Acute myocardial infarction Congestive heart failure (< 1 month) History of inflammatory bowel disease Medical patient at bed rest Age 61-74 Arthroscopic surgery Major open surgery (> 45 min) Laparoscopic surgery (> 45 min) Malignancy Confined to bed (> 72 hours) Immobilizing plaster cast Central venous access Age >= 75 History of VTE Family history of VTE Factor V Leiden Prothrombin [id number] Lupus anticoagulant Anticardiolipin antibodies Elevated serum homocysteine Heparin-induced thrombocytopenia Other congenital or acquired thrombophilia Stroke (< 1 month) Elective arthroplasty Hip, pelvis, or leg fracture Acute spinal cord injury (< 1 month) Prophylaxis Regimen Total Risk Factor Score Risk Level Prophylaxis Regimen 0-1 Low Early ambulation 2 Moderate Order ONE of the following: *Sequential Compression Device (SCD) *Heparin 5000 units SQ BID 3-4 Higher Order ONE of the following medications: *Heparin 5000 units SQ TID *Enoxaparin/Lovenox 40 mg SQ daily (WT < 150 kg, CrCl > 30 mL/min) *Enoxaparin/Lovenox 30 mg SQ daily (WT < 150 kg, CrCl > 10-29 mL/min) *Enoxaparin/Lovenox 30 mg SQ BID (WT < 150 kg, CrCl > 30 mL/min) AND/OR *Sequential Compression Device (SCD) 5 or more Highest Order ONE of the following medications: *Heparin 5000 units SQ TID (Preferred with Epidurals) *Enoxaparin/Lovenox 40 mg SQ daily (WT < 150 kg, CrCl > 30 mL/min) *Enoxaparin/Lovenox 30 mg SQ daily (WT < 150 kg, CrCl > 10-29 mL/min) *Enoxaparin/Lovenox 30 mg SQ BID (WT < 150 kg, CrCl > 30 mL/min) AND *Sequential Compression Device (SCD) Attending Statement Continue neuro checks in a serial fashion. A follow-up CT of the head showed slight increase in the cytotoxic edema without mass effect I will continue to manage her subarachnoid hemorrhage, I will kindly defer management of the thrombosis and anticoagulation to neurology. Pulmonary.aggressive pulmonary toilette, nasotracheal suction, and breathing treatments with nebulizers. The patient has comorbidities including Alcohol intoxication, Diabetes mellitus , Thrombocytopenia, Hepatitis C, which increase the risk for developing complications. Nutrition. Oral diet ADA 2000 Asif Renal. monitor closely urine output, BUN and creatinine Diabetes mellitus. Monitor serial Acu checks and SSI as needed in detail ID monitor for signs of infection Protonix for stress ulcer prophylaxis Perez hose and SCD's for DVT prophylaxis Mikhail Jarrett MD May 15, 2017 16:57
[2017-05-15 20:00] VITALS: BP 111/57; PULSE 56; RESP 18; TEMP 97.7; O2SAT 100
[2017-05-16] VITALS: BP 153/74; PULSE 69; RESP 18; TEMP 97.4; O2SAT 98
[2017-05-16] MEDS: SODIUM CHLOR 0.9% 1000 ML INJ 1,000 ML IV SCH ×2 (02:22→14:17)
[2017-05-16 04:00] VITALS: BP 165/79; PULSE 77; RESP 18; TEMP 97.8; O2SAT 96
[2017-05-16] MEDS: CHLORHEXIDINE GLUCONATE 2 % 1 PACK (2 CLOTHS) TOP SCH (04:00)
[2017-05-16] MEDS: ENOXAPARIN SODIUM 60 MG/0.6 ML SYRINGE SQ SCH ×2 (04:46→16:55)
[2017-05-16 08:15] VITALS: BP 133/61; PULSE 60; RESP 18; TEMP 98.4; O2SAT 99
[2017-05-16] MEDS: levETIRAcetam 1000 MG INJ 100 ML IV SCH ×3 (08:50→21:00)
[2017-05-16] MEDS: SODIUM CHLORIDE 0.9% FLUSH 10 ML FLUSH IV FLUSH SCH ×2 (08:51→20:08)
[2017-05-16] MEDS: FAMOTIDINE 20 MG/2 ML VIAL IV PUSH SCH ×3 (08:52→21:00)
[2017-05-16] MEDS: DEXAMETHASONE SOD PHOS 4 MG/ML VIAL IV PUSH SCH ×3 (08:52→21:00)
[2017-05-16] MEDS: DOCUSATE SODIUM 50 MG/SENNA 8.6 MG TAB PO SCH ×2 (08:52→20:07)
[2017-05-16] MEDS: METOPROLOL TARTRATE 25 MG TAB PO SCH ×2 (08:52→20:08)
[2017-05-16] MEDS: GABAPENTIN 100 MG CAP PO SCH ×2 (08:52→20:08)
[2017-05-16 12:12] VITALS: BP 128/60; PULSE 51; RESP 18; TEMP 98.1; O2SAT 100
[2017-05-16] MEDS ORDERED: COUM3TAB PO (13:35)
[2017-05-16] MEDS ORDERED: ENOX60P SQ (13:35)
[2017-05-16] MEDS ORDERED: METO25TA3 PO (13:35)
[2017-05-16] MEDS ORDERED: TRAM50TA PO (13:35)
--- NOTE | 2017-05-16 13:36 | HHI.DS ---
Discharge Summary Admission Date May 09, 2017 at 02:15 Discharge Date: May 22, 2017 Admitting Diagnosis (1) Debility ICD Code: R53.81 - Other malaise (2) Subarachnoid hemorrhage ICD Code: I60.9 - Nontraumatic subarachnoid hemorrhage, unspecified (3) Anxiety ICD Code: F41.9 - Anxiety disorder, unspecified (4) Dementia ICD Code: F03.90 - Unspecified dementia without behavioral disturbance (5) Diabetes ICD Code: E11.9 - Type 2 diabetes mellitus without complications (6) Neuropathy ICD Code: G62.9 - Polyneuropathy, unspecified (7) Hypertension ICD Code: I10 - Essential (primary) hypertension (8) Pain ICD Code: R52 - Pain, unspecified (9) Dural sinus thrombosis ICD Code: G08 - Intracranial and intraspinal phlebitis and thrombophlebitis Procedures none Brief History - From Admission This is a 87-year-old fully pleasant female presented to [facility] complaining of atypical chest pain and headaches. Her workup in the emergency department showed small volume of subarachnoid bleed within the left parietal-occipital region, extensive dural venous sinus thrombosis which involve the superior sagittal sinus striate sinus bilateral transverse sinuses and left sigmoid sinus. There was no aneurysm observed on the CTA brain. The case was discussed by ED attending with Dr. Jarrett/ neurosurgery at [facility] and the patient is transferred to critical care service. CBC/BMP: 05/12/17 0525 Significant Findings Laboratory Tests Test 05/15/17 12:45 Imaging Last Impressions Head CT 05/15/17 0000 Signed Impressions: Service Date/Time: Monday, May 15, 2017 14:23 - CONCLUSION: 1. The only interval change is a slight increase in the cytotoxic edema without mass effect or herniation. No new hemorrhage. Stable previous intraparenchymal and subarachnoid hemorrhage. Parker Sullivan Jr., MD Brain MRI 05/11/17 0000 Signed Impressions: Service Date/Time: Thursday, May 11, 2017 09:44 - CONCLUSION: Abnormality left proximal region is most likely an infarct that may be related to the venous thrombosis. This can be followed by MRI to ensure it is resolving as expected.. Base on MRI and CT the age of this would be similar between 3-5 days. Arvind Power MD FACR PE at Discharge GENERAL: Well-nourished, well-developed patient. Pleasant Gabonese-speaking woman , confused, appears lethargic. Son interprets for her. CARDIOVASCULAR: Irreg Irreg rate and rhythm without murmurs, gallops, or rubs. Rate 80s RESPIRATORY: Breath sounds equal bilaterally. No accessory muscle use. Clear. Comfortable pattern. GASTROINTESTINAL: Abdomen soft, non-tender, nondistended. BS active. No guarding. MUSCULOSKELETAL: No cyanosis, or edema. Well perfused. NEURO EXAM: Moves 4 limbs spontaneously, conversant in Gabonese. Alert. Mild chronic dementia though not received well by all family members. Hospital Course 87 yo F, ill with new parenchymal hemorrhages and cerebral vein thrombosis. New parenchymal bleed probably related to venous back pressure from venous obstruction. Morbidity is so high without therapy that we will continue anticoagulation. Review of recent literature indicates that risk of catastrophic parenchymal hemorrhage is low and anticoagulation needs to be continued. Discussed with all consultants. Prognosis guarded. New atrial fibrillation with good rate control.Patient currently on lovenox 60 mg SQ BID. Neurology . Discussed with neurology Dr Huang regarding final anticoagulation recommendation at DC is coumadin. Patient was bridged wit Lovenox. INR range is 2-3. Patient with therapeutic INR at DC. To f/u as OP with PCP and consultants. Discharged to rehab in stable condition. Subarachnoid bleed secondary to cerebral vein thrombosis - No aneurysm observed on CTA - Blood pressure control - Neurosurgical consultation is following. - Repeat CT head 05/15/17 as patient with headache, confusion, finding discussed with Mary Carmen YE and Dr Jarrett from neurosurgery. - Will check CBC and BMP Cerebral Vein thrombosis - Heparin drip -> lovenox 60 q12h bridge coumadin. DC lovenox. Patient can be DC to rehab when INR is closed to 2. - Neurology consult. Discussed with Dr Huang neurology regarding anticoagulation recommendations at discharge. IRN goal is 2-3. Discussed with the family and case management plan to DC patient to SNF as she needs close observation, monitoring INR - Transfer Hypertension - Hold diuretics. - Hydralazine and labetalol when necessary - SBP goal less than 140 Seizure - IV Keppra every 12 hours - EEG at the bedside Neuropathy - Home dose of gabapentin DVT GI prophylaxis - Teds SCDs - Heparin drip -> lovenox 60 sq q12h - Pepcid Discussed with the patient, nurse, son at bedside. Case management consulted for DC plan. DC plan: Plan to DC to SNF when cleared by specialists. CT head 05/15 at baseline. Discussed with Dr Huang neurology regarding anticoagulation recommendations at discharge. Recommends Coumadin and bridge with lovenox. IRN goal is 2-3. Discussed with the family and case management plan to DC patient to SNF as she needs close observation, monitoring INR . Patient is not approved by insurance for rehab unless INTR is near 2. Plan to discharge to [facility] facility however not accepted unless INR is therapeutic or near therapeutic . Pharmacy is also following regarding Coumadin and monitoring INR. CM following for DC plan. INR is therapeutic. INR therapeutic. Patient was DC to rehab n stable condiiton to f/u as Op with PCP and consultants. Pt Condition on Discharge: Stable Discharge Disposition: Discharge to SNF Discharge Time: > 30 minutes Discharge Instructions DIET: Follow Instructions for: Heart Healthy Diet Activities you can perform: Regular-No Restrictions Follow up Referrals: Appointment for Follow Up Neurology - 1 Week with Mary Huang MD Neurosurgery - 1 Week with Mikhail Jarrett MD PCP Follow-up - 2-3 Days PCP Follow-up New Medications: Hydrocodone-Acetaminophen ([place]) 5 Mg-325 Mg Tab 1 TAB PO Q6H PRN for PAIN, #10 TAB 0 Refills Levetiracetam (Keppra) 750 Mg Tab 1000 MG PO BID for Control Seizures, #60 TAB 0 Refills Warfarin (Coumadin) 2.5 Mg Tab 2.5 MG PO DAILY for Prevent Blood Clot, #30 TAB 0 Refills Metoprolol Tartrate (Metoprolol Tartrate) 25 Mg Tab 12.5 MG PO Q12HR for Blood Pressure Management, #60 TAB Continued Medications: Dexamethasone (Dexamethasone) 2 Mg Tab 2 MG PO DAILY, #30 TAB 0 Refills Gabapentin (Gabapentin) 100 Mg Cap 100 MG PO BID, #60 CAP 0 Refills Triamterene-Hydrochlorothiazide (Triamterene-Hydrochlorothiazide) 37.5-25 Mg Cap 1 CAP PO DAILY, #30 CAP 0 Refills Marianne Barker MD May 16, 2017 13:35
--- NOTE | 2017-05-16 13:38 | HHI.PR ---
Subjective Remarks The patient is in the chair, she appears in not acute distress at this time. She is more awake and alert. Family at bedside. Headaches that time. She is eating well. Appetite is good. No nausea or vomiting. Objective Vitals Vital Signs Date Time Temp Pulse Resp B/P (MAP) Pulse Ox O2 Delivery O2 Flow Rate FiO2 05/16/17 12:12 98.1 51 18 128/60 (82) 100 05/16/17 08:15 98.4 60 18 133/61 (85) 99 05/16/17 04:00 97.8 77 18 165/79 (107) 96 05/16/17 00:00 97.4 69 18 153/74 (100) 98 05/15/17 20:00 97.7 56 18 111/57 (75) 100 05/15/17 16:38 98.4 55 18 126/60 (82) 98 I/O 05/15/17 05/15/17 05/15/17 05/16/17 05/16/17 05/16/17 07:00 15:00 23:00 07:00 15:00 23:00 Intake Total 1100 ml 812 ml 100 ml 1088 ml Balance 1100 ml 812 ml 100 ml 1088 ml Intake Oral 600 ml IV Total 1100 ml 212 ml 100 ml 1088 ml # Voids 2 2 1 4 # Bowel Movements 2 1 Result Diagram: 05/12/17 0525 Imaging Last Impressions Head CT 05/15/17 0000 Signed Impressions: Service Date/Time: Monday, May 15, 2017 14:23 - CONCLUSION: 1. The only interval change is a slight increase in the cytotoxic edema without mass effect or herniation. No new hemorrhage. Stable previous intraparenchymal and subarachnoid hemorrhage. Parker Sullivan Jr., MD Brain MRI 05/11/17 0000 Signed Impressions: Service Date/Time: Thursday, May 11, 2017 09:44 - CONCLUSION: Abnormality left proximal region is most likely an infarct that may be related to the venous thrombosis. This can be followed by MRI to ensure it is resolving as expected.. Base on MRI and CT the age of this would be similar between 3-5 days. Arvind Power MD FACR Objective Remarks GENERAL: Well-nourished, well-developed patient. Pleasant Persian-speaking woman , confused, appears lethargic. Son interprets for her. CARDIOVASCULAR: Irreg Irreg rate and rhythm without murmurs, gallops, or rubs. Rate 80s RESPIRATORY: Breath sounds equal bilaterally. No accessory muscle use. Clear. Comfortable pattern. GASTROINTESTINAL: Abdomen soft, non-tender, nondistended. BS active. No guarding. MUSCULOSKELETAL: No cyanosis, or edema. Well perfused. NEURO EXAM: Moves 4 limbs spontaneously, conversant in Persian. Alert. Mild chronic dementia though not received well by all family members. A/P Assessment and Plan 87 yo F, ill with new parenchymal hemorrhages and cerebral vein thrombosis. New parenchymal bleed probably related to venous back pressure from venous obstruction. Morbidity is so high without therapy that we will continue anticoagulation. Review of recent literature indicates that risk of catastrophic parenchymal hemorrhage is low and anticoagulation needs to be continued. Discussed with all consultants. Prognosis guarded. New atrial fibrillation with good rate control.Patient currently on lovenox 60 mg SQ BID. Neurology (Dr Huang to decide final anticoagulation recommendation at DC). Subarachnoid bleed secondary to cerebral vein thrombosis - No aneurysm observed on CTA - Blood pressure control - Neurosurgical consultation is following. - Repeat CT head 05/15/17 as patient with headache, confusion. Discusse adilson YE and Dr Jarrett from neurosurgery. - Will check CBC and BMP Cerebral Vein thrombosis - Heparin drip -> lovenox 60 q12h - Neurology consult. Discussed with Dr Huang neurology regarding anticoagulation recommendations at discharge. Recommends Coumadin and bridge with lovenox. IRN goal is 2-3. Discussed with the family and case management plan to DC patient to SNF as she needs close observation, monitoring INR - Transfer Hypertension - Hold diuretics. - Hydralazine and labetalol when necessary - SBP goal less than 140 Seizure - IV Keppra every 12 hours - EEG at the bedside Neuropathy - Home dose of gabapentin DVT GI prophylaxis - Teds SCDs - Heparin drip -> lovenox 60 sq q12h - Pepcid Discussed with the patient, nurse, son at bedside. Case management consulted for DC plan. DC plan: Plan to dc to SNF when cleared by specialists. CT head 05/15 at baseline. Discussed with Dr Huang neurology regarding anticoagulation recommendations at discharge. Recommends Coumadin and bridge with lovenox. IRN goal is 2-3. Discussed with the family and case management plan to DC patient to SNF as she needs close observation, monitoring INR CM following for DC plan Marianne Barker MD May 16, 2017 13:38
--- NOTE | 2017-05-16 15:06 | PD.CONS ---
Consult Service Palliative Care . Consult Requested By Dr. Barker . Primary Care Physician Unknown . Reason for Consultation a. To assist with evaluation and management of symptoms including: pain, debility, anxiety b. To assist medical decision maker(s) with: better understanding of current medical conditions; weighing benefits/burdens of medical treatment options; making medical treatment decisions. . HPI History of Present Illness Mrs. Lewis is an 87-year-old female with dementia, neuralgia, thrombocytopenia , diabetes, and hepatitis C and hypertension who was transferred from to [facility] on 05/09/2017 with parenchymal hemorrhage and cerebral vein thromboses. Follow-up visit for symptom management and clarification of goals. Patient seen and assessed in room 1525; patient's son (Joe) was also at bedside. Patient was awake, showing no signs of acute distress. Patient denies pain on exam. PRN Dilaudid and Percocet are available but have not been used in the past 24 hours. Patient is currently confused, no sign of anxiety on examination. Follow up CT brain on 05/15/17 showed a slight increase in the cytotoxic edema without mass effect or herniation. No new hemorrhage. Stable previous intraparenchymal and subarachnoid hemorrhage. Patient remains on therapeutic anticoagulation with Lovenox, plan to bridge to Coumadin with INR goal of 2-3 OT and PT following. Per PT note, patient could go home if she were to 24/7 supervision. Otherwise, SNF placement was recommended for rehabilitation. Family was previously discussing hospice but is now requesting placement [facility] rehab. . Past Family Social History Coded Allergies: No Known Allergies (Unverified , 05/09/17) Past Medical History Hypertension Dementia Diabetes Thrombocytopenia Hepatitis C Neuralgia . Past Surgical History No known surgeries . Current Medications Medications (Trade) Dose Ordered Sig/Anand Route Start Time Stop Time Status Last Admin Sodium Chloride 1,000 ml @ 84 mls/hr [id number] IV 05/09/17 03:32 05/15/17 15:11 (NS Flush) 2 ml UNSCH PRN IV FLUSH 05/09/17 03:45 (NS Flush) 2 ml BID IV FLUSH 05/09/17 09:00 05/16/17 08:51 (Tylenol) 650 mg Q6H PRN PO 05/09/17 03:45 05/11/17 06:40 (Percocet 5-325 Mg) 1 tab Q4H PRN PO 05/09/17 03:45 05/15/17 10:09 (Zofran Inj) 4 mg Q6H PRN IV PUSH 05/09/17 03:45 05/10/17 10:00 (Duoneb Neb) 1 ampule Q2HR NEB PRN INH 05/09/17 03:45 Miscellaneous Information 1 Q361D XX 05/09/17 03:45 (Chlorhexidine 2% Cloth) Taper DAILY@04 TOP 05/09/17 04:00 05/05/18 03:59 (Chlorhexidine 2% Cloth) 3 pack UNSCH PRN TOP 05/09/17 03:45 (Alissa-Colace) 1 tab BID PO 05/09/17 09:00 05/16/17 08:52 (Milk Of Magnesia Liq) 30 ml Q12H PRN PO 05/09/17 03:45 (Senokot) 17.2 mg Q12H PRN PO 05/09/17 03:45 05/13/17 09:01 (Dulcolax Supp) 10 mg DAILY PRN RECTAL 05/09/17 03:45 05/14/17 13:53 (Lactulose Liq) 30 ml DAILY PRN PO 05/09/17 03:45 05/14/17 13:53 (Neurontin) 100 mg BID PO 05/09/17 09:00 05/16/17 08:52 Levetriacetam 100 ml @ 400 mls/hr Q12HR IV 05/09/17 09:00 05/16/17 08:50 (Dilaudid Pf Inj) 0.2 mg Q4H PRN IV PUSH 05/09/17 07:00 05/14/17 01:03 (Ativan Inj) 1 mg Q15M PRN IV PUSH 05/09/17 07:15 (Decadron Inj) 2 mg Q12HR IV PUSH 05/09/17 11:15 05/16/17 08:52 (Lovenox Inj) 60 mg Q12H SQ 05/10/17 16:00 05/16/17 04:46 (Pepcid Inj) 10 mg Q12HR IV PUSH 05/10/17 21:00 05/16/17 08:52 (Apresoline Inj) 10 mg Q4H PRN IV PUSH 05/10/17 23:30 05/14/17 01:33 (Lopressor) 12.5 mg Q12HR PO 05/12/17 10:00 05/16/17 08:52 (Pill Splitter) 1 ea UNSCH PRN OTHER 05/12/17 10:00 Pharmacy Profile Note 0 ml @ 0 mls/hr UNSCH OTHER 05/16/17 13:45 Family History Triamterene-Hydrochlorothiazide 37.5-25 Mg Cap 1 Cap PO DAILY Tramadol (Tramadol HCl) 50 Mg Tab 50 Mg PO Q6H PRN Dexamethasone 2 Mg Tab 2 Mg PO DAILY Gabapentin 100 Mg Cap 100 Mg PO BID . Substance Use Tobacco: Alcohol: Prescription med abuse: Illicits: Documented care wishes: No known documented care wishes available . Physical Exam Vital Signs Date Time Temp Pulse Resp B/P (MAP) Pulse Ox O2 Delivery O2 Flow Rate FiO2 05/16/17 12:12 98.1 51 18 128/60 (82) 100 05/16/17 08:15 98.4 60 18 133/61 (85) 99 05/16/17 04:00 97.8 77 18 165/79 (107) 96 05/16/17 00:00 97.4 69 18 153/74 (100) 98 05/15/17 20:00 97.7 56 18 111/57 (75) 100 05/15/17 16:38 98.4 55 18 126/60 (82) 98 05/16/17 05/17/17 19:00 07:00 Intake Total 1688 ml Balance 1688 ml Intake Oral 600 ml IV Total 1088 ml # Voids 6 # Bowel Movements 1 Exam CONSTITUTIONAL/GENERAL: This is an adequately nourished patient, in no apparent distress. TUBES/LINES/DRAINS: PIV x 1 SKIN: No jaundice, rashes, or lesions. No wounds seen anteriorly. Skin temperature appropriate. Not diaphoretic. HEAD: Atraumatic. Normocephalic. EYES: Pupils equal and round and reactive. . No scleral icterus. No injection or drainage. Fundi not examined. ENT: Hearing grossly normal. Nose without bleeding or purulent drainage. NECK: Trachea midline. CARDIOVASCULAR: Intermittent bradycardia .no murmurs, gallops, or rubs. No JVD. Peripheral pulses symmetric. RESPIRATORY/CHEST: Symmetric, unlabored respirations. Clear to auscultation. Breath sounds equal bilaterally. No wheezes, rales, or rhonchi. GASTROINTESTINAL: Abdomen soft, non-tender, nondistended. No hepato-splenomegaly , or palpable masses. No guarding. Bowel sounds present. GENITOURINARY: Without palpable bladder distension. [place] catheter in place. MUSCULOSKELETAL: Extremities without clubbing, cyanosis, or edema. No mottling or clubbing. LYMPHATICS: No palpable cervical or supraclavicular adenopathy. NEUROLOGICAL: Awake and alert. Motor and sensory grossly within normal limits. Follows commands. Cognitively sharp. Moves all extremities. PSYCHIATRIC: No obvious anxiety/depression. no apparent hallucinations or other psychotic thought process. . Diagnostic Tests Laboratory Laboratory Tests Test 05/15/17 12:45 Result Diagram: 05/12/17 0525 Patient/Family Conference Issues Discussed: * Palliative care role, purpose, approach * Additional medical, psychosocial, and spiritual history * Patients general health, functional status, and cognitive changes in the months leading up to the current hospitalization * Patient/family understanding of the current medical problems * Patient/family understanding of prognosis * Patients goals of care as best understood from advance directives and/or conversations and/or values * Current medical treatment options and benefits/burdens of those options * Likely scenarios comparing ongoing aggressive care with a transition to comfort measures only * Questions answered to the best of my ability * Palliative care contact information provided Assessment and Plan Disease Oriented Problem List: (1) Diabetes (2) Hypertension (3) Dementia (4) Neuropathy (5) Subarachnoid hemorrhage (6) Dural sinus thrombosis Symptom Scale: (1) Pain (2) Debility (3) Anxiety Pertinent Non-Medical Issues Psychosocial: Patient spent most of her life in [place]. She was for short period of time and had 3 sons. Patient never remarried. She currently lives with her son (Venkata) who assist with her care. 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 Spiritual: Yazdanism stevie Legal: Patient does not have insight or judgment related to her medical conditions or various treatment options and will not regain capacity in the future. Per [place] statutes, and absence of written advanced directives healthcare proxy decision making would fall to the patient's 3 adult sons. Ethical issues impacting care: No known ethical issues impacting care at this time. . Important Contacts Venkata Lewis, son: [phone] . Prognosis Patient is ill with new parenchymal hemorrhages and cerebral vein thrombosis. New parenchymal bleed likely related to venous back pressure from venous obstruction. Morbidity is high without therapy so the patient has been kept on anticoagulation therapy. Review of recent literature indicates that risk of catastrophic parenchymal hemorrhage is low and anticoagulation needs to be continued. Prognosis is guarded. Code Status: No Code Plan * DO NOT RESUSCITATE * Decision-making: Patient does not have insight or judgment related to her medical conditions or various treatment options and will not regain capacity in the future. Per [place] statutes, and absence of written advanced directives healthcare proxy decision making would fall to the patient's 3 adult sons. * Goals: Pending further conversation with the patient's children on 05/16/2017 * Palliative care contact information provided to the patient's son; hospice was introduced and will be discussed further tomorrow 05/16/2017. * Symptom management-pain: Presented to ED with complaints of headache and atypical chest pain; having ongoing headaches. PRN acetaminophen or oxycodone are available for pain <5; PRN Dilaudid 0.2 mg IV every 4 hours is available for pain > 5. Patient has received 1 when necessary dose of oxycodone in the past 24 hours. * Symptom management-debility: The patient lives at home with her son and requires assistance with most ADLs including ambulation and bathing. She has a history of dementia and is quite forgetful. * Palliative care will continue to follow this patient throughout her hospitalization to establish chest, assist with symptom management and clarification of medical treatment goals. . Thank you for the opportunity to participate in the care of Ms. Lewis. Lilian Rizo May 16, 2017 15:06
--- NOTE | 2017-05-16 15:16 | HHI.HCPN ---
Reason for visit a. To assist with evaluation and management of symptoms including: pain, debility, anxiety b. To assist medical decision maker(s) with: better understanding of current medical conditions; weighing benefits/burdens of medical treatment options; making medical treatment decisions. . Subjective/Interval History Mrs. Lewis is an 87-year-old female with dementia, neuralgia, thrombocytopenia , diabetes, and hepatitis C and hypertension who was transferred from to [facility] on 05/09/2017 with parenchymal hemorrhage and cerebral vein thromboses. Follow-up visit for symptom management and clarification of goals. Patient seen and assessed in room 1525; patient's son (Joe) was also at bedside. Patient was awake, showing no signs of acute distress. Patient denies pain on exam. PRN Dilaudid and Percocet are available but have not been used in the past 24 hours. Patient is currently confused, no sign of anxiety on examination. Follow up CT brain on 05/15/17 showed a slight increase in the cytotoxic edema without mass effect or herniation. No new hemorrhage. Stable previous intraparenchymal and subarachnoid hemorrhage. Patient remains on therapeutic anticoagulation with Lovenox, plan to bridge to Coumadin with INR goal of 2-3 OT and PT following. Per PT note, patient could go home if she were to 24/7 supervision. Otherwise, SNF placement was recommended for rehabilitation. Family was previously discussing hospice but is now requesting placement At [facility] inpatient rehab. . Family/friend interactions Attempted to speak with patient's son, Venkata Lewis, via telephone. Unable to leave a message. Spoke with another son, Joe, at bedside. He states the family has decided they would like the patient to go to rehabilitation before returning home. . Advance Directives Advance Directive Specifics Documented care wishes: No known documented care wishes available . Significant change in goals: Patient/family have decided they would like the patient to receive rehabilitation before returning home. . Objective Vital Signs Date Time Temp Pulse Resp B/P (MAP) Pulse Ox O2 Delivery O2 Flow Rate FiO2 05/16/17 12:12 98.1 51 18 128/60 (82) 100 05/16/17 08:15 98.4 60 18 133/61 (85) 99 05/16/17 04:00 97.8 77 18 165/79 (107) 96 05/16/17 00:00 97.4 69 18 153/74 (100) 98 05/15/17 20:00 97.7 56 18 111/57 (75) 100 05/15/17 16:38 98.4 55 18 126/60 (82) 98 Intake & Output 05/16/17 05/16/17 07:00 19:00 Intake Total 100 ml 1688 ml Balance 100 ml 1688 ml Intake Oral 600 ml IV Total 100 ml 1088 ml # Voids 1 6 # Bowel Movements 1 . Physical Exam CONSTITUTIONAL/GENERAL: This is an adequately nourished patient, in no apparent distress. TUBES/LINES/DRAINS: PIV x 1 SKIN: No jaundice, rashes, or lesions. No wounds seen anteriorly. Skin temperature appropriate. Not diaphoretic. HEAD: Atraumatic. Normocephalic. EYES: Pupils equal and round and reactive. No scleral icterus. No injection or drainage. Fundi not examined. ENT: Hearing grossly normal. Nose without bleeding or purulent drainage. NECK: Trachea midline. CARDIOVASCULAR: Intermittent bradycardia .no murmurs, gallops, or rubs. No JVD. Peripheral pulses symmetric. RESPIRATORY/CHEST: Symmetric, unlabored respirations. Clear to auscultation. Breath sounds equal bilaterally. No wheezes, rales, or rhonchi. GASTROINTESTINAL: Abdomen soft, non-tender, nondistended. No hepato-splenomegaly , or palpable masses. No guarding. Bowel sounds present. GENITOURINARY: Without palpable bladder distension. Mendosa catheter in place. MUSCULOSKELETAL: Extremities without clubbing, cyanosis, or edema. No mottling or clubbing. LYMPHATICS: No palpable cervical or supraclavicular adenopathy. NEUROLOGICAL: Pleasantly confused. Moves all extremities. PSYCHIATRIC: Intermittent agitation. No apparent hallucinations or other psychotic thought process. . Diagnostic Tests Laboratory Laboratory Tests Test 05/15/17 12:45 . Result Diagram: 05/12/17 0525 Imaging Last [address] 05/15/17 0000 Signed Impressions: Service Date/Time: Monday, May 15, 2017 14:23 - CONCLUSION: 1. The only interval change is a slight increase in the cytotoxic edema without mass effect or herniation. No new hemorrhage. Stable previous intraparenchymal and subarachnoid hemorrhage. Parker Sullivan Jr., MD . Assessment and Plan Disease Oriented Problem List: (1) Diabetes (2) Hypertension (3) Dementia (4) Neuropathy (5) Subarachnoid hemorrhage (6) Dural sinus thrombosis Symptom Scale: (1) Pain 0-10 Scale: 0 (2) Debility 0-10 Scale: Unable to quantify (3) Anxiety 0-10 Scale: Unable to quantify Pertinent Non-Medical Issues Psychosocial: Patient spent most of her life in [place]. She was for short period of time and had 3 sons. Patient never remarried. She currently lives with her son (Venkata) who assist with her care. 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 Spiritual: Baptism stevie Legal: Patient does not have insight or judgment related to her medical conditions or various treatment options and will not regain capacity in the future. Per [place] statutes, and absence of written advanced directives healthcare proxy decision making would fall to the patient's 3 adult sons. Ethical issues impacting care: No known ethical issues impacting care at this time. . Important Contacts Venkata Lewis, son: [phone] . Prognosis Patient is ill with new parenchymal hemorrhages and cerebral vein thrombosis. New parenchymal bleed likely related to venous back pressure from venous obstruction. Morbidity is high without therapy so the patient has been kept on anticoagulation therapy. Review of recent literature indicates that risk of catastrophic parenchymal hemorrhage is low and anticoagulation needs to be continued. Prognosis is guarded. Code Status: No Code Plan * DO NOT RESUSCITATE * Decision-making: Patient does not have insight or judgment related to her medical conditions or various treatment options and will not regain capacity in the future. Per [place] statutes, and absence of written advanced directives healthcare proxy decision making would fall to the patient's 3 adult sons. * Aggressive goals up to the point of cardiopulmonary resuscitation. * Discussed with window caser, Marcelina. * Palliative care contact information provided to the patient's son; hospice was introduced and will be discussed further tomorrow 05/16/2017. * Symptom management-pain: Presented to ED with complaints of headache and atypical chest pain; having ongoing headaches. Patient denies pain on exam. PRN Acetaminophen, Dilaudid and Percocet are available but have not been used in the past 24 hours. Patient is currently confused, no sign of anxiety on examination. * Symptom management-debility: The patient lives at home with her son and requires assistance with most ADLs including ambulation and bathing. She has a history of dementia and is quite forgetful. OT and PT following. Per PT note, patient could go home if she were to 24/7 supervision. Otherwise, SNF placement was recommended for rehabilitation. Family was previously discussing hospice but is now requesting placement At [facility] inpatient rehab. * Palliative care will continue to follow this patient throughout her hospitalization to establish chest, assist with symptom management and clarification of medical treatment goals. . Attestation To help prompt me to consider important information that might be impacting today's encounter and assessment, information from prior notes written by myself or my colleagues may have been "brought forward" into today's note. My signature on this note, however, is an attestation that I personally performed the exam, history, and/or decision-making noted today, and, unless otherwise indicated, the interactions with patient, family, and staff as well as the review of records all occurred today. I also attest that the listed assessment and stated plan reflect my best clinical judgment today based on the combination of historical information, prior notes, and today's exam/ interactions. When time spent is documented, it refers only to time spent today by the signer, or if indicated, combined time spent today by collaborating physician/nurse practitioner. . Lilian Rizo May 16, 2017 15:16
[2017-05-16 15:53] VITALS: BP 131/61; PULSE 60; RESP 18; TEMP 98.2; O2SAT 99
[2017-05-16] MEDS ORDERED: WARFARIN SOD 3 MG TAB PO SCH (16:00)
--- NOTE | 2017-05-16 17:16 | HHI.NSPN ---
Note Status Status: Progress Note Interval History Diagnosis Sinus thrombosis Interval History This is a 87-year-old fully pleasant female presented to [facility] complaining of atypical chest pain and headaches. Her workup in the emergency department showed small volume of subarachnoid bleed within the left parietal-occipital region, extensive dural venous sinus thrombosis which involve the superior sagittal sinus striate sinus bilateral transverse sinuses and left sigmoid sinus. There was no aneurysm observed on the CTA brain. she has history of dementia. She is alert and confused, at baseline. She moves all 4 extremities without focal weakness. neurosurgical consultation was requested. 05/10. Clinically stable. Follow up CT brain done today 05/14. Alert, awake. She remains confused. Reports headaches 05/16. Alert, awake, confused Labs, Micro, & Vital Signs Results Date Time Temp Pulse Resp B/P (MAP) Pulse Ox O2 Delivery O2 Flow Rate FiO2 05/16/17 15:53 98.2 60 18 131/61 (84) 99 05/16/17 12:12 98.1 51 18 128/60 (82) 100 05/16/17 08:15 98.4 60 18 133/61 (85) 99 05/16/17 04:00 97.8 77 18 165/79 (107) 96 05/16/17 00:00 97.4 69 18 153/74 (100) 98 05/15/17 20:00 97.7 56 18 111/57 (75) 100 05/17/17 07:00 Intake Total 1688 ml Balance 1688 ml Constitutional Vital Signs Date Time Temp Pulse Resp B/P (MAP) Pulse Ox O2 Delivery O2 Flow Rate FiO2 05/16/17 15:53 98.2 60 18 131/61 (84) 99 05/16/17 12:12 98.1 51 18 128/60 (82) 100 05/16/17 08:15 98.4 60 18 133/61 (85) 99 05/16/17 04:00 97.8 77 18 165/79 (107) 96 05/16/17 00:00 97.4 69 18 153/74 (100) 98 05/15/17 20:00 97.7 56 18 111/57 (75) 100 05/17/17 07:00 Intake Total 1688 ml Balance 1688 ml Physical Exam Patient is awake and alert. She is conversant but confused. Cranial nerves II- XII are intact. Will follow simple commands and moves all 4 extremities equally. Medications Current Medications Current Medications Sodium Chloride 1,000 ml @ 84 mls/hr [id number] IV Last administered on 15:11; Start 05/09/17 at 03:32 Sodium Chloride (NS Flush) 2 ml UNSCH PRN IV FLUSH FLUSH AFTER USING IV ACCESS ; Start 05/09/17 at 03:45 Sodium Chloride (NS Flush) 2 ml BID IV FLUSH Last administered on 05/16/17 08 :51; Start 05/09/17 at 09:00 Acetaminophen (Tylenol) 650 mg Q6H PRN PO PAIN 1-5 AND/OR FEVER >101F Last administered on 05/11/17 06:40; Start 05/09/17 at 03:45 Oxycodone/ Acetaminophen (Percocet 5-325 Mg) 1 tab Q4H PRN PO PAIN SCALE 1 TO 5 Last administered on 05/15/17 10:09; Start 05/09/17 at 03:45 Famotidine (Pepcid Inj) 20 mg Q12HR IV PUSH Last administered on 05/10/17 09: 25; Start 05/09/17 at 09:00; Stop 05/10/17 at 15:31; Status DC Ondansetron HCl (Zofran Inj) 4 mg Q6H PRN IV PUSH NAUSEA OR VOMITING Last administered on 05/10/17 10:00; Start 05/09/17 at 03:45 Albuterol/ Ipratropium (Duoneb Neb) 1 ampule Q2HR NEB PRN INH WHEEZING; Start 05/09/17 at 03:45 Miscellaneous Information 1 Q361D XX ; Start 05/09/17 at 03:45 Chlorhexidine Gluconate (Chlorhexidine 2% Cloth) Taper DAILY@04 TOP ; Start 05/09/17 at 04:00; Stop 05/05/18 at 03:59 Chlorhexidine Gluconate (Chlorhexidine 2% Cloth) 3 pack UNSCH PRN TOP HYGIENIC CARE; Start 05/09/17 at 03:45 Senna/Docusate Sodium (Alissa-Colace) 1 tab BID PO Last administered on 08:52; Start 05/09/17 at 09:00 Magnesium Hydroxide (Milk Of Magnesia Liq) 30 ml Q12H PRN PO Mild constipation ; Start 05/09/17 at 03:45 Sennosides (Senokot) 17.2 mg Q12H PRN PO Moderate constipation Last administered on 05/13/17 09:01; Start 05/09/17 at 03:45 Bisacodyl (Dulcolax Supp) 10 mg DAILY PRN RECTAL SEVERE CONSITIPATION Last administered on 05/14/17 13:53; Start 05/09/17 at 03:45 Lactulose (Lactulose Liq) 30 ml DAILY PRN PO SEVERE CONSITIPATION Last administered on 05/14/17 13:53; Start 05/09/17 at 03:45 Dexamethasone (Decadron) 2 mg DAILY PO ; Start 05/09/17 at 09:00; Stop 05/09/17 at 11:04; Status DC Gabapentin (Neurontin) 100 mg BID PO Last administered on 05/16/17 08:52; Start 05/09/17 at 09:00 Heparin Sodium/ Dextrose 250 ml @ 7 mls/hr TITRATE PRN IV Coagulation Management Last administered on 05/10/17 07:32; Start 05/09/17 at 03:45; Stop 05/10/17 at 09:06; Status DC Levetriacetam 100 ml @ 400 mls/hr Q12HR IV Last administered on 05/16/17 08: 50; Start 05/09/17 at 09:00 Hydromorphone HCl (Dilaudid Pf Inj) 0.2 mg Q4H PRN IV PUSH pain > 5/10 Last administered on 05/14/17 01:03; Start 05/09/17 at 07:00 Levetriacetam 100 ml @ 400 mls/hr Q12HR IV ; Start 05/09/17 at 09:00; Stop 05/09/17 at 09:00; Status DC Lorazepam (Ativan Inj) 1 mg Q15M PRN IV PUSH seizure; Start 05/09/17 at 07:15 Dexamethasone Sodium Phosphate (Decadron Inj) 2 mg Q12HR IV PUSH Last administered on 05/16/17 08:52; Start 05/09/17 at 11:15 Enoxaparin Sodium (Lovenox Inj) 60 mg Q12H SQ Last administered on 05/16/17 16:55; Start 05/10/17 at 16:00 Famotidine (Pepcid Inj) 10 mg Q12HR IV PUSH Last administered on 05/16/17 08: 52; Start 05/10/17 at 21:00 Hydralazine HCl (Apresoline Inj) 10 mg Q4H PRN IV PUSH SBP >140 Last administered on 05/14/17 01:33; Start 05/10/17 at 23:30 Gadodiamide (Omniscan Pf Inj) 12 ml STK-MED ONCE IVCONTRAST Last administered on 05/11/17 09:56; Start 05/11/17 at 09:56; Stop 05/11/17 at 09:57; Status DC Metoprolol Tartrate (Lopressor) 12.5 mg Q12HR PO Last administered on 08:52; Start 05/12/17 at 10:00 Miscellaneous (Pill Splitter) 1 ea UNSCH PRN OTHER SEE LABEL COMMENTS; Start 05/12/17 at 10:00 Pharmacy Profile Note 0 ml @ 0 mls/hr UNSCH OTHER ; Start 05/16/17 at 13:45 Warfarin Sodium (Coumadin) 3 mg DAILY@1600 PO ; Start 05/16/17 at 16:00; Status Future Hold Patient Medication Teaching (Coumadin Booklet) 1 ONCE ONCE .XX Last administered on 05/16/17 16:55; Start 05/16/17 at 16:00; Stop 05/16/17 at 16 :03; Status DC Medical Decision Making MDM Remarks Last [address] 05/15/17 0000 Signed Impressions: Service Date/Time: Monday, May 15, 2017 14:23 - CONCLUSION: 1. The only interval change is a slight increase in the cytotoxic edema without mass effect or herniation. No new hemorrhage. Stable previous intraparenchymal and subarachnoid hemorrhage. Parker Sullivan Jr., MD Last [address] 05/09/17 0000 Signed Impressions: Service Date/Time: Tuesday, May 09, 2017 17:17 - CONCLUSION: 1. Left posterior occipital mid convexity interparenchymal hemorrhage measuring approximately 2.9 x 2.4 cm with associated regional subarachnoid blood products. No significant hydrocephalus, midline shift or herniation at this time. Hemorrhagic mass cannot be excluded. This can be further evaluated with MRI exam as clinically warranted. Pa Sanchez MD Plan Plan Remarks Caprini VTE Risk Assessment Caprini VTE Risk Assessment: Mod/High Risk (score >= 2) Caprini Risk Assessment Model Point Value = 1 Point Value = 2 Point Value = 3 Point Value = 5 Age 41-60 Minor surgery BMI > 25 kg/m2 Swollen legs Varicose veins or History of unexplained or recurrent spontaneous Oral contraceptives or hormone replacement Sepsis (< 1 month) Serious lung disease, including pneumonia (< 1 month) Abnormal pulmonary function Acute myocardial infarction Congestive heart failure (< 1 month) History of inflammatory bowel disease Medical patient at bed rest Age 61-74 Arthroscopic surgery Major open surgery (> 45 min) Laparoscopic surgery (> 45 min) Malignancy Confined to bed (> 72 hours) Immobilizing plaster cast Central venous access Age >= 75 History of VTE Family history of VTE Factor V Leiden Prothrombin [id number] Lupus anticoagulant Anticardiolipin antibodies Elevated serum homocysteine Heparin-induced thrombocytopenia Other congenital or acquired thrombophilia Stroke (< 1 month) Elective arthroplasty Hip, pelvis, or leg fracture Acute spinal cord injury (< 1 month) Prophylaxis Regimen Total Risk Factor Score Risk Level Prophylaxis Regimen 0-1 Low Early ambulation 2 Moderate Order ONE of the following: *Sequential Compression Device (SCD) *Heparin 5000 units SQ BID 3-4 Higher Order ONE of the following medications: *Heparin 5000 units SQ TID *Enoxaparin/Lovenox 40 mg SQ daily (WT < 150 kg, CrCl > 30 mL/min) *Enoxaparin/Lovenox 30 mg SQ daily (WT < 150 kg, CrCl > 10-29 mL/min) *Enoxaparin/Lovenox 30 mg SQ BID (WT < 150 kg, CrCl > 30 mL/min) AND/OR *Sequential Compression Device (SCD) 5 or more Highest Order ONE of the following medications: *Heparin 5000 units SQ TID (Preferred with Epidurals) *Enoxaparin/Lovenox 40 mg SQ daily (WT < 150 kg, CrCl > 30 mL/min) *Enoxaparin/Lovenox 30 mg SQ daily (WT < 150 kg, CrCl > 10-29 mL/min) *Enoxaparin/Lovenox 30 mg SQ BID (WT < 150 kg, CrCl > 30 mL/min) AND *Sequential Compression Device (SCD) Attending Statement Continue neuro checks in a serial fashion. I will kindly defer management of the thrombosis and anticoagulation to neurology. Pulmonary Continue .aggressive pulmonary toilette, nasotracheal suction, and breathing treatments with nebulizers. Nutrition. Oral diet ADA 2000 Asif Renal. monitor closely urine output, BUN and creatinine Diabetes mellitus. Monitor serial Acu checks and SSI as needed in detail ID monitor for signs of infection Protonix for stress ulcer prophylaxis Perez ophelia and SCD's for DVT prophylaxis Cleared per neurosurgicval stabdpoint for discharge Mikhail Jarrett MD May 16, 2017 17:16
[2017-05-16 20:06] VITALS: BP 133/60; PULSE 64; RESP 18; TEMP 98.2; O2SAT 96
[2017-05-16] MEDS: WARFARIN SOD 3 MG TAB PO SCH (22:48)
[2017-05-16] MEDS ORDERED: FAMOTIDINE 20 MG TAB PO ONE (23:15)
[2017-05-16] MEDS ORDERED: levETIRAcetam 500 MG TAB PO ONE (23:15)
[2017-05-16] MEDS ORDERED: DEXAMETHASONE 4 MG TAB PO ONE (23:15)
[2017-05-17 01:21] VITALS: BP 129/63; PULSE 58; RESP 18; TEMP 98; O2SAT 100
[2017-05-17] MEDS: SODIUM CHLOR 0.9% 1000 ML INJ 1,000 ML IV SCH ×2 (01:40→15:33)
[2017-05-17] MEDS: CHLORHEXIDINE GLUCONATE 2 % 1 PACK (2 CLOTHS) TOP SCH (03:22)
[2017-05-17] MEDS: ENOXAPARIN SODIUM 60 MG/0.6 ML SYRINGE SQ SCH ×2 (03:29→15:59)
[2017-05-17 05:54] VITALS: BP 140/71; PULSE 58; RESP 16; TEMP 98.3; O2SAT 96
--- NOTE | 2017-05-17 08:18 | PD.ONC.PN ---
Subjective Subjective Remarks Patient seen and examined, vital signs, labs, medications and imaging studies reviewed. Molder Inflated Ball notes reviewed. Per progress notes from the hospitalist physician the patient was recommended transition to warfarin by Dr. Huang of neurology. The patient's son is at bedside and he informs me that the patient will be [facility] either later today or tomorrow. The patient has been working with physical therapy and has been out of bed. Subjectively the patient reports her head continues to hurt but less so as compared to before 5 days ago. Objective Data Date Time Temp Pulse Resp B/P (MAP) Pulse Ox O2 Delivery O2 Flow Rate FiO2 05/17/17 05:54 98.3 58 16 140/71 (94) 96 05/17/17 01:21 98.0 58 18 129/63 (85) 100 05/16/17 20:06 98.2 64 18 133/60 (84) 96 05/16/17 15:53 98.2 60 18 131/61 (84) 99 05/16/17 12:12 98.1 51 18 128/60 (82) 100 Laboratory Results Laboratory Tests Test 05/16/17 19:17 05/17/17 07:46 Prothrombin Time 11.0 SEC Prothromb Time International Ratio 1.0 RATIO Administered Medications Medications (Trade) Dose Ordered Sig/Anand Route PRN Reason Start Time Stop Time Status Last Admin Dose Admin Sodium Chloride 1,000 ml @ 84 mls/hr [id number] IV 05/09/17 03:32 05/15/17 15:11 Sodium Chloride (NS Flush) 2 ml BID IV FLUSH 05/09/17 09:00 05/16/17 20:08 Acetaminophen (Tylenol) 650 mg Q6H PRN PO PAIN 1-5 AND/OR FEVER >101F 05/09/17 03:45 05/11/17 06:40 Oxycodone/ Acetaminophen (Percocet 5-325 Mg) 1 tab Q4H PRN PO PAIN SCALE 1 TO 5 05/09/17 03:45 05/15/17 10:09 Ondansetron HCl (Zofran Inj) 4 mg Q6H PRN IV PUSH NAUSEA OR VOMITING 05/09/17 03:45 05/10/17 10:00 Senna/Docusate Sodium (Alissa-Colace) 1 tab BID PO 05/09/17 09:00 11/15/17 20:07 Sennosides (Senokot) 17.2 mg Q12H PRN PO Moderate constipation 05/09/17 03:45 05/13/17 09:01 Bisacodyl (Dulcolax Supp) 10 mg DAILY PRN RECTAL SEVERE CONSITIPATION 05/09/17 03:45 05/14/17 13:53 Lactulose (Lactulose Liq) 30 ml DAILY PRN PO SEVERE CONSITIPATION 05/09/17 03:45 05/14/17 13:53 Gabapentin (Neurontin) 100 mg BID PO 05/09/17 09:00 05/16/17 20:08 Levetriacetam 100 ml @ 400 mls/hr Q12HR IV 05/09/17 09:00 05/16/17 08:50 Hydromorphone HCl (Dilaudid Pf Inj) 0.2 mg Q4H PRN IV PUSH pain > 5/10 05/09/17 07:00 05/14/17 01:03 Dexamethasone Sodium Phosphate (Decadron Inj) 2 mg Q12HR IV PUSH 05/09/17 11:15 05/16/17 08:52 Enoxaparin Sodium (Lovenox Inj) 60 mg Q12H SQ 05/10/17 16:00 05/17/17 03:29 Famotidine (Pepcid Inj) 10 mg Q12HR IV PUSH 05/10/17 21:00 05/16/17 08:52 Hydralazine HCl (Apresoline Inj) 10 mg Q4H PRN IV PUSH SBP >140 05/10/17 23:30 05/14/17 01:33 Metoprolol Tartrate (Lopressor) 12.5 mg Q12HR PO 05/12/17 10:00 05/16/17 20:08 Warfarin Sodium (Coumadin) 3 mg DAILY@1600 PO 05/16/17 21:00 05/16/17 22:48 Objective Remarks GENERAL APPEARANCE: Ms. Lewis is an elderly female, she appears to be a slight frame, she is laying in bed, she is awake, she is arousable but is not effectively communicative. Her son is at bedside. She appears not to be acutely distressed. HEENT: Head atraumatic, normocephalic, conjunctive are not pale, sclerae are anicteric, EOMI, PERRLA, oral exam dry mucous membranes. NECK: No palpable cervical or supraclavicular lymphadenopathy. RESPIRATORY EXAM: Good air movement bilaterally. No added breath sounds. CARDIOVASCULAR: Bradycardia. Regular rhythm, S1-S2. No obvious murmurs, rubs or gallops. ABDOMINAL EXAM: Thin belly, soft, no palpable organ enlargement, belly is otherwise soft. LOWER EXTREMITIES: No pretibial edema. No calf tenderness. 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 Assessment/Plan Problem List: (1) Dural sinus thrombosis ICD Codes: G08 - Intracranial and intraspinal phlebitis and thrombophlebitis Plan: -- Found in the setting accompanied with SAH -- Currently on therapeutic Lovenox 60mg SQ BID -- The assumption is the back pressure resulting from the dural sinus thrombosis has resulted in the rupture of the arterioles in the brain parenchyma resulting in the bleeding. -- Repeat MRI on 05/11 shows Assessment 87 y/o female with dementia admitted for dural sinus thrombosis as well as a intraparenchymal brain hemorrhage, it appears the dural sinus thrombosis was the cause of the intracranial/intraparenchymal hemorrhage. Presently on therapeutic anticoagulation with Lovenox. Plan 1. Dural vein thrombosis: Currently on treatment with therapeutic anticoagulation. Antiphospholipid negative, protein C and protein S activity levels are also within normal limits. Factor V Leiden gene mutation is negative , I will add on lupus anticoagulant and anti-thrombin 3 levels as well, to round out the prothrombotic workup. Per neurology the patient has been recommended transition from Lovenox to warfarin. Clinically she appears to be stable, repeat CT scan of the head on 05/15/2017 indicated stable findings as far as the intracranial hemorrhages concerned, more edema was noted however. Await results of the prothrombotic workup including lupus anticoagulant and anti -thrombin 3 results. Clinically she appears to be stable. Jerry Figueroa MD May 17, 2017 08:18
[2017-05-17 08:24] LABS: PROTHROMBIN TIME - PATIENT 11.2 SEC (9.8-11.6)
--- NOTE | 2017-05-17 08:31 | HHI.PR ---
Subjective Remarks In the chair appears in nad. No more headache. No motor deficit. She is alert and oriented. Denies chest pain, no n/v/d/c. No fever or chills. Objective Vitals Vital Signs Date Time Temp Pulse Resp B/P (MAP) Pulse Ox O2 Delivery O2 Flow Rate FiO2 05/17/17 05:54 98.3 58 16 140/71 (94) 96 05/17/17 01:21 98.0 58 18 129/63 (85) 100 05/16/17 20:06 98.2 64 18 133/60 (84) 96 05/16/17 15:53 98.2 60 18 131/61 (84) 99 05/16/17 12:12 98.1 51 18 128/60 (82) 100 I/O 05/16/17 05/16/17 05/16/17 05/17/17 05/17/17 05/17/17 07:00 15:00 23:00 07:00 15:00 23:00 Intake Total 100 ml 1688 ml Balance 100 ml 1688 ml Intake Oral 600 ml IV Total 100 ml 1088 ml # Voids 1 6 2 # Bowel Movements 1 0 Imaging Last Impressions Head CT 05/15/17 0000 Signed Impressions: Service Date/Time: Monday, May 15, 2017 14:23 - CONCLUSION: 1. The only interval change is a slight increase in the cytotoxic edema without mass effect or herniation. No new hemorrhage. Stable previous intraparenchymal and subarachnoid hemorrhage. Parker Sullivan Jr., MD Brain MRI 05/11/17 0000 Signed Impressions: Service Date/Time: Thursday, May 11, 2017 09:44 - CONCLUSION: Abnormality left proximal region is most likely an infarct that may be related to the venous thrombosis. This can be followed by MRI to ensure it is resolving as expected.. Base on MRI and CT the age of this would be similar between 3-5 days. Arvind Power MD FACR Objective Remarks GENERAL: Well-nourished, well-developed patient. Pleasant Mauritian-speaking woman , confused, appears lethargic. Son interprets for her. CARDIOVASCULAR: Irreg Irreg rate and rhythm without murmurs, gallops, or rubs. Rate 80s RESPIRATORY: Breath sounds equal bilaterally. No accessory muscle use. Clear. Comfortable pattern. GASTROINTESTINAL: Abdomen soft, non-tender, nondistended. BS active. No guarding. MUSCULOSKELETAL: No cyanosis, or edema. Well perfused. NEURO EXAM: Moves 4 limbs spontaneously, conversant in Mauritian. Alert. Mild chronic dementia though not received well by all family members. Procedures none A/P Problem List: (1) Debility ICD Code: R53.81 - Other malaise (2) Subarachnoid hemorrhage ICD Code: I60.9 - Nontraumatic subarachnoid hemorrhage, unspecified (3) Anxiety ICD Code: F41.9 - Anxiety disorder, unspecified (4) Dementia ICD Code: F03.90 - Unspecified dementia without behavioral disturbance (5) Diabetes ICD Code: E11.9 - Type 2 diabetes mellitus without complications (6) Neuropathy ICD Code: G62.9 - Polyneuropathy, unspecified (7) Hypertension ICD Code: I10 - Essential (primary) hypertension (8) Pain ICD Code: R52 - Pain, unspecified (9) Dural sinus thrombosis ICD Code: G08 - Intracranial and intraspinal phlebitis and thrombophlebitis Assessment and Plan 87 yo F, ill with new parenchymal hemorrhages and cerebral vein thrombosis. New parenchymal bleed probably related to venous back pressure from venous obstruction. Morbidity is so high without therapy that we will continue anticoagulation. Review of recent literature indicates that risk of catastrophic parenchymal hemorrhage is low and anticoagulation needs to be continued. Discussed with all consultants. Prognosis guarded. New atrial fibrillation with good rate control.Patient currently on lovenox 60 mg SQ BID. Neurology (Dr Huang to decide final anticoagulation recommendation at DC). Subarachnoid bleed secondary to cerebral vein thrombosis - No aneurysm observed on CTA - Blood pressure control - Neurosurgical consultation is following. - Repeat CT head 05/15/17 as patient with headache, confusion. Discusse adilson YE and Dr Jarrett from neurosurgery. - Will check CBC and BMP Cerebral Vein thrombosis - Heparin drip -> lovenox 60 q12h - Neurology consult. Discussed with Dr Huang neurology regarding anticoagulation recommendations at discharge. Recommends Coumadin and bridge with lovenox. IRN goal is 2-3. Discussed with the family and case management plan to DC patient to SNF as she needs close observation, monitoring INR - Transfer Hypertension - Hold diuretics. - Hydralazine and labetalol when necessary - SBP goal less than 140 Seizure - IV Keppra every 12 hours - EEG at the bedside Neuropathy - Home dose of gabapentin DVT GI prophylaxis - Teds SCDs - Heparin drip -> lovenox 60 sq q12h - Pepcid Discussed with the patient, nurse, son at bedside. Case management consulted for DC plan. DC plan: Plan to DC to SNF when cleared by specialists. CT head 05/15 at baseline. Discussed with Dr Huang neurology regarding anticoagulation recommendations at discharge. Recommends Coumadin and bridge with lovenox. IRN goal is 2-3. Discussed with the family and case management plan to DC patient to SNF as she needs close observation, monitoring INR . Consult rehab Dr Coffman for evaluation. Patient might go to [facility] if approved. CM following for DC plan. Marianne Barker MD May 17, 2017 08:31
[2017-05-17] MEDS: levETIRAcetam 1000 MG INJ 100 ML IV SCH ×2 (08:53→20:57)
[2017-05-17] MEDS: SODIUM CHLORIDE 0.9% FLUSH 10 ML FLUSH IV FLUSH SCH ×2 (08:53→20:57)
[2017-05-17] MEDS: DEXAMETHASONE SOD PHOS 4 MG/ML VIAL IV PUSH SCH ×2 (08:54→20:57)
[2017-05-17] MEDS: FAMOTIDINE 20 MG/2 ML VIAL IV PUSH SCH ×2 (08:55→20:57)
[2017-05-17] MEDS: GABAPENTIN 100 MG CAP PO SCH ×2 (09:00→20:58)
[2017-05-17] MEDS: DOCUSATE SODIUM 50 MG/SENNA 8.6 MG TAB PO SCH ×2 (09:03→20:58)
[2017-05-17] MEDS: METOPROLOL TARTRATE 25 MG TAB PO SCH ×2 (09:03→20:58)
[2017-05-17 10:53] VITALS: BP 137/65; PULSE 60; RESP 17; TEMP 97.9; O2SAT 98
[2017-05-17 13:36] VITALS: BP 131/60; PULSE 48; RESP 16; TEMP 97.8; O2SAT 98
[2017-05-17] MEDS: WARFARIN SOD 3 MG TAB PO SCH (15:58)
[2017-05-17 17:45] VITALS: BP 123/58; PULSE 52; RESP 16; TEMP 97.5; O2SAT 99
--- NOTE | 2017-05-17 17:55 | PD.CONS ---
[facility] Service Rehabilitation Medicine Consult Requested By Reason for Consult Comprehensive rehabilitation evaluation. Primary Care Physician Unknown History of Present Illness Zahida Lewis is an 87 year old right hand dominant female initially taken to [facility] with atypical chest pain and headache. She was found to have SAH left parietal occipital region and extensive dural venous sinus thrombosis. CTA was negative for aneurysm. She was transferred and admitted to [facility] 05/09/17. MRI of the brain 05/11/17 showed left parital occipital infarct possibly related to venous thrombosis. Head CT on 05/15/17 showed slight increase in cytotoxic edema without mass effect or hemorrhage. ICH and SAH were stable. She was found to have new onset atrial fibrillation. She is receiving IV Keppra for seizure prophylaxis and IV Decadron. Warfarin has been started with Lovenox bridge. Goal is INR 2-3. Hematology is following for prothrombotic workout. Review of Systems ROS Limitations: Clinical Condition, Altered Mental Status Constitutional: COMPLAINS OF: Fatigue Eyes: DENIES: Diplopia Ears, nose, mouth, throat: DENIES: Throat pain Respiratory: DENIES: Shortness of breath Cardiovascular: DENIES: Chest pain Gastrointestinal: COMPLAINS OF: Constipation, DENIES: Abdominal pain Genitourinary: COMPLAINS OF: Urgency, DENIES: Urinary incontinence Musculoskeletal: COMPLAINS OF: Joint pain, Muscle aches Integumentary: DENIES: Pruritus Hematologic/lymphatic: DENIES: Bruising Neurologic: DENIES: Headache, Localized weakness, Paresthesias Psychiatric: COMPLAINS OF: Confusion Past Family Social History Allergies: Coded Allergies: No Known Allergies (Unverified , 05/09/17) Past Medical History Dementia. Neuropathy. Hypertension. Past Surgical History None Current Medications Current Medications Medications (Trade) Dose Ordered Sig/Anand Route Start Time Stop Time Status Last Admin Sodium Chloride 1,000 ml @ 84 mls/hr [id number] IV 05/09/17 03:32 05/17/17 15:33 (NS Flush) 2 ml UNSCH PRN IV FLUSH 05/09/17 03:45 (NS Flush) 2 ml BID IV FLUSH 05/09/17 09:00 05/17/17 08:53 (Tylenol) 650 mg Q6H PRN PO 05/09/17 03:45 05/11/17 06:40 (Percocet 5-325 Mg) 1 tab Q4H PRN PO 05/09/17 03:45 05/15/17 10:09 (Zofran Inj) 4 mg Q6H PRN IV PUSH 05/09/17 03:45 05/10/17 10:00 (Duoneb Neb) 1 ampule Q2HR NEB PRN INH 05/09/17 03:45 Miscellaneous Information 1 [id number] XX 05/09/17 03:45 (Chlorhexidine 2% Cloth) Taper DAILY@04 TOP 05/09/17 04:00 05/05/18 03:59 (Chlorhexidine 2% Cloth) 3 pack UNSCH PRN TOP 05/09/17 03:45 (Alissa-Colace) 1 tab BID PO 05/09/17 09:00 05/17/17 09:03 (Milk Of Magnesia Liq) 30 ml Q12H PRN PO 05/09/17 03:45 (Senokot) 17.2 mg Q12H PRN PO 05/09/17 03:45 05/13/17 09:01 (Dulcolax Supp) 10 mg DAILY PRN RECTAL 05/09/17 03:45 05/14/17 13:53 (Lactulose Liq) 30 ml DAILY PRN PO 05/09/17 03:45 05/14/17 13:53 (Neurontin) 100 mg BID PO 05/09/17 09:00 05/17/17 09:00 Levetriacetam 100 ml @ 400 mls/hr Q12HR IV 05/09/17 09:00 05/17/17 08:53 (Dilaudid Pf Inj) 0.2 mg Q4H PRN IV PUSH 05/09/17 07:00 05/14/17 01:03 (Ativan Inj) 1 mg Q15M PRN IV PUSH 05/09/17 07:15 (Decadron Inj) 2 mg Q12HR IV PUSH 05/09/17 11:15 05/17/17 08:54 (Lovenox Inj) 60 mg Q12H SQ 05/10/17 16:00 05/17/17 15:59 (Pepcid Inj) 10 mg Q12HR IV PUSH 05/10/17 21:00 05/17/17 08:55 (Apresoline Inj) 10 mg Q4H PRN IV PUSH 05/10/17 23:30 05/14/17 01:33 (Lopressor) 12.5 mg Q12HR PO 05/12/17 10:00 05/17/17 09:03 (Pill Splitter) 1 ea UNSCH PRN OTHER 05/12/17 10:00 Pharmacy Profile Note 0 ml @ 0 mls/hr UNSCH OTHER 05/16/17 13:45 (Coumadin) 3 mg DAILY@1600 PO 05/16/17 21:00 05/17/17 15:58 Family History Noncontributory Social History Lives with son. No tobacco use and occasional ETOH. Exam I&O / VS 05/17/17 05/17/17 05/18/17 15:00 23:00 07:00 Intake Total 100 ml Balance 100 ml IV Total 100 ml Vital Signs Date Time Temp Pulse Resp B/P (MAP) Pulse Ox O2 Delivery O2 Flow Rate FiO2 05/17/17 17:45 97.5 52 16 123/58 (79) 99 05/17/17 13:36 97.8 48 16 131/60 (83) 98 05/17/17 10:53 97.9 60 17 137/65 (89) 98 05/17/17 05:54 98.3 58 16 140/71 (94) 96 05/17/17 01:21 98.0 58 18 129/63 (85) 100 05/16/17 20:06 98.2 64 18 133/60 (84) 96 General: No acute distress Respiratory: Lungs CTA, Non-labored respirations, BS equal Gastrointestinal: Positive Bowel Sounds, Non-Distended Cardiovascular: Normal rate, Irregular Rhythm Skin: Other (No rash noted) Musculoskeletal: ROM (Within functional limits), Swelling (1+ LE bilateral ankles.) Psychiatric: Cooperative, Appropriate mood & affect Orientation: oriented to Self, oriented to Place, disoriented to Time Neurologic: Speech (Clear) Motor: Right Upper Extremity (4+/5), Left Upper Extremity (4+/5), Right Lower Extremity (4+/5), Left Lower Extremity (4+/5) Sensory Grossly intact in UE and LE Clonus: Negative Assessment and Plan Diagnosis: (1) Dural sinus thrombosis ICD Codes: G08 - Intracranial and intraspinal phlebitis and thrombophlebitis (2) Subarachnoid hemorrhage ICD Codes: I60.9 - Nontraumatic subarachnoid hemorrhage, unspecified Assessment 1. Dural venous sinus thrombosis/SAH/Left occipital infarct 2. Atrial fibrillation 3. Dementia 4. HTN 5. Neuropathy 6. Impaired mobility and ADL"s. Plan 1. Patient progressing with mobility and 125 feet with CG and RW fair to fair + balance with PT. Continue to mobilize 2. Fall prevention 3. OT for ADL's and min assist with lower body dressing and CG with UE dressing. Continue to maximize independence 4. Tolerating regular diet with thin liquids 5. Peer to peer review done with Dr. Park regarding inpatient rehabilitation. She recommends continued acute care rather than transfer to inpatient rehab with careful medical management. 6. Will follow while hospitalized and at discharge. Thank you for this consult. Eileen Coffman MD May 17, 2017 17:55
[2017-05-17 21:23] VITALS: BP 155/65; PULSE 51; RESP 18; TEMP 97.5; O2SAT 98
[2017-05-18 00:04] VITALS: BP 131/65; PULSE 61; RESP 16; TEMP 97.5; O2SAT 100
[2017-05-18] MEDS: SODIUM CHLOR 0.9% 1000 ML INJ 1,000 ML IV SCH (02:02)
[2017-05-18] MEDS: CHLORHEXIDINE GLUCONATE 2 % 1 PACK (2 CLOTHS) TOP SCH (04:00)
[2017-05-18] MEDS: ENOXAPARIN SODIUM 60 MG/0.6 ML SYRINGE SQ SCH ×2 (04:37→15:57)
[2017-05-18 04:53] VITALS: BP 119/56; PULSE 53; RESP 18; TEMP 97.6; O2SAT 95
[2017-05-18 05:40] LABS: THROMBIN TIME FOR LA ND sec (13-19)
[2017-05-18 06:54] LABS: PROTHROMBIN TIME - PATIENT 11.1 SEC (9.8-11.6)
[2017-05-18 06:58] LABS: AUTOMATED NEUTROPHIL # 3.3 TH/MM3 (1.8-7.7); EOSINOPHIL % 0.1 % (0.0-4.0); HEMATOCRIT 34.2 % (35.0-46.0); HEMO FLAGS DIFF FINAL; LYMPH % 34.2 % (9.0-44.0); LYMPHOCYTE # 1.9 TH/MM3 (1.0-4.8); MEAN CELL VOLUME 98.3 FL (80.0-100.0); MEAN CORPUSCULAR HEMOGLOBIN 33.8 PG (27.0-34.0); MEAN CORPUSCULAR HGB CONC 34.4 % (32.0-36.0); MONO % 5.9 % (0.0-8.0); NEUT % 59.8 % (16.0-70.0); PLATELET COUNT 125 TH/MM3 (150-450); RED BLOOD COUNT 3.48 MIL/MM3 (4.00-5.30); RED CELL DISTRIBUTION WIDTH 14.1 % (11.6-17.2); WHITE BLOOD COUNT 5.5 TH/MM3 (4.0-11.0)
[2017-05-18 07:14] LABS: BICARBONATE 26.5 MEQ/L (21.0-32.0); POTASSIUM 3.7 MEQ/L (3.5-5.1)
[2017-05-18 08:00] VITALS: BP 143/63; PULSE 51; RESP 16; TEMP 98; O2SAT 99
[2017-05-18] MEDS: DEXAMETHASONE SOD PHOS 4 MG/ML VIAL IV PUSH SCH ×2 (08:58→22:11)
[2017-05-18] MEDS: FAMOTIDINE 20 MG/2 ML VIAL IV PUSH SCH ×2 (08:58→22:11)
[2017-05-18] MEDS: GABAPENTIN 100 MG CAP PO SCH ×2 (08:58→22:11)
[2017-05-18] MEDS: METOPROLOL TARTRATE 25 MG TAB PO SCH ×2 (08:59→22:11)
[2017-05-18] MEDS: levETIRAcetam 1000 MG INJ 100 ML IV SCH ×2 (08:59→22:10)
[2017-05-18] MEDS: DOCUSATE SODIUM 50 MG/SENNA 8.6 MG TAB PO SCH ×2 (08:59→22:11)
[2017-05-18] MEDS: SODIUM CHLORIDE 0.9% FLUSH 10 ML FLUSH IV FLUSH SCH ×2 (09:00→22:11)
[2017-05-18 12:00] VITALS: BP 132/62; PULSE 45; RESP 16; TEMP 97.8; O2SAT 98
--- NOTE | 2017-05-18 12:31 | HHI.NSPN ---
(Cherrie Fernandez) Note Status Status: Progress Note (Cherrie Fernandez) Interval History Interval History This is a 87-year-old fully pleasant female presented to [facility] complaining of atypical chest pain and headaches. Her workup in the emergency department showed small volume of subarachnoid bleed within the left parietal-occipital region, extensive dural venous sinus thrombosis which involve the superior sagittal sinus striate sinus bilateral transverse sinuses and left sigmoid sinus. There was no aneurysm observed on the CTA brain. she has history of dementia. She is alert and confused, at baseline. She moves all 4 extremities without focal weakness. neurosurgical consultation was requested. 05/18: neuro exam stable, eager for rehab, dc planning to rehab, feeling well, no new complaints. (Cherrie Fernandez) Labs, Micro, & Vital Signs Results Date Time Temp Pulse Resp B/P (MAP) Pulse Ox O2 Delivery O2 Flow Rate FiO2 05/18/17 08:00 98.0 51 16 143/63 (89) 99 05/18/17 04:53 97.6 53 18 119/56 (77) 95 05/18/17 00:04 97.5 61 16 131/65 (87) 100 05/17/17 21:23 97.5 51 18 155/65 (95) 98 05/17/17 17:45 97.5 52 16 123/58 (79) 99 05/17/17 13:36 97.8 48 16 131/60 (83) 98 05/19/17 07:00 Intake Total 342 ml Balance 342 ml Constitutional Vital Signs Date Time Temp Pulse Resp B/P (MAP) Pulse Ox O2 Delivery O2 Flow Rate FiO2 05/18/17 08:00 98.0 51 16 143/63 (89) 99 05/18/17 04:53 97.6 53 18 119/56 (77) 95 05/18/17 00:04 97.5 61 16 131/65 (87) 100 05/17/17 21:23 97.5 51 18 155/65 (95) 98 05/17/17 17:45 97.5 52 16 123/58 (79) 99 05/17/17 13:36 97.8 48 16 131/60 (83) 98 05/19/17 07:00 Intake Total 342 ml Balance 342 ml (Cherrie Fernandez) Physical Exam Ms. Lewis is awake and alert. She is conversant but confused. Cranial nerves: pupils equal, facial motor symmetric Motor: moves all four extremities (Cherrie Fernandez) Ms Lewis is alert, confused, oriented to self. Cranial nerve examination demonstrates the pupils to be equal, round, and reactive to light. Extra-ocular movements are intact with normal convergence. Facial motor function appears normal and symmetrical. Face sensation, hearing, visual cole, and olfaction can not be assessed properly due to the patients condition. The patient has an intact corneal reflex and a gag reflex. Sternocleidomastoid and trapezius have normal and symmetrical strength. Other cranial nerves are intact. Neck is soft and supple. Cervical spine has a normal range of motion of the cervical spine without pain. There is no tenderness to palpation to the spinous processes or paraspinal muscles. Muscle testing reveals normal bulk and tone overall without rigidity, spasticity , fasciculations, or atrophy. Muscle strength is 5/5 in all muscle groups of both upper and lower extremities. Deep tendon reflexes are 1+ and symmetrical in the biceps, triceps, and brachioradialis, bilaterally, in the upper extremities. In the lower extremities , the patellar and Achilles are 1+, bilaterally. There is a bilateral plantar flexion response. Hoffmanns sign is negative. There is no clonus or other abnormal reflexes noted. Cerebellar examination is limited due to the patient condition, but no obvious deficits are noted. (Mikhail Jarrett MD) Medications Current Medications Current Medications Medications (Trade) Dose Ordered Sig/Anand Route PRN Reason Start Time Stop Time Status Last Admin Dose Admin Sodium Chloride (NS Flush) 2 ml UNSCH PRN IV FLUSH FLUSH AFTER USING IV ACCESS 05/09/17 03:45 Sodium Chloride (NS Flush) 2 ml BID IV FLUSH 05/09/17 09:00 05/17/17 08:53 Acetaminophen (Tylenol) 650 mg Q6H PRN PO PAIN 1-5 AND/OR FEVER >101F 05/09/17 03:45 05/11/17 06:40 Oxycodone/ Acetaminophen (Percocet 5-325 Mg) 1 tab Q4H PRN PO PAIN SCALE 1 TO 5 05/09/17 03:45 05/15/17 10:09 Ondansetron HCl (Zofran Inj) 4 mg Q6H PRN IV PUSH NAUSEA OR VOMITING 05/09/17 03:45 05/10/17 10:00 Albuterol/ Ipratropium (Duoneb Neb) 1 ampule Q2HR NEB PRN INH WHEEZING 05/09/17 03:45 Miscellaneous Information 1 Q361D XX 05/09/17 03:45 Chlorhexidine Gluconate (Chlorhexidine 2% Cloth) Taper DAILY@04 TOP 05/09/17 04:00 05/05/18 03:59 Chlorhexidine Gluconate (Chlorhexidine 2% Cloth) 3 pack UNSCH PRN TOP HYGIENIC CARE 05/09/17 03:45 Senna/Docusate Sodium (Alissa-Colace) 1 tab BID PO 05/09/17 09:00 05/18/17 08:59 Magnesium Hydroxide (Milk Of Magnesia Liq) 30 ml Q12H PRN PO Mild constipation 05/09/17 03:45 Sennosides (Senokot) 17.2 mg Q12H PRN PO Moderate constipation 05/09/17 03:45 05/13/17 09:01 Bisacodyl (Dulcolax Supp) 10 mg DAILY PRN RECTAL SEVERE CONSITIPATION 05/09/17 03:45 05/14/17 13:53 Lactulose (Lactulose Liq) 30 ml DAILY PRN PO SEVERE CONSITIPATION 05/09/17 03:45 05/14/17 13:53 Gabapentin (Neurontin) 100 mg BID PO 05/09/17 09:00 05/18/17 08:58 Levetriacetam 100 ml @ 400 mls/hr Q12HR IV 05/09/17 09:00 05/18/17 08:59 Hydromorphone HCl (Dilaudid Pf Inj) 0.2 mg Q4H PRN IV PUSH pain > 5/10 05/09/17 07:00 05/14/17 01:03 Lorazepam (Ativan Inj) 1 mg Q15M PRN IV PUSH seizure 05/09/17 07:15 Dexamethasone Sodium Phosphate (Decadron Inj) 2 mg Q12HR IV PUSH 05/09/17 11:15 05/18/17 08:58 Enoxaparin Sodium (Lovenox Inj) 60 mg Q12H SQ 05/10/17 16:00 05/18/17 04:37 Famotidine (Pepcid Inj) 10 mg Q12HR IV PUSH 05/10/17 21:00 05/18/17 08:58 Hydralazine HCl (Apresoline Inj) 10 mg Q4H PRN IV PUSH SBP >140 05/10/17 23:30 05/14/17 01:33 Metoprolol Tartrate (Lopressor) 12.5 mg Q12HR PO 05/12/17 10:00 05/18/17 08:59 Miscellaneous (Pill Splitter) 1 ea UNSCH PRN OTHER SEE LABEL COMMENTS 05/12/17 10:00 Pharmacy Profile Note 0 ml @ 0 mls/hr UNSCH OTHER 05/16/17 13:45 Warfarin Sodium (Coumadin) 3 mg DAILY@1600 PO 05/16/17 21:00 05/17/17 15:58 Warfarin Sodium (Coumadin) 2 mg ONCE ONCE PO 05/18/17 16:00 05/18/17 16:01 (Cherrie Fernandez) Current Medications Current Medications Sodium Chloride 1,000 ml @ 84 mls/hr [id number] IV Last administered on 02:02; Start 05/09/17 at 03:32; Stop 05/18/17 at 11:57; Status DC Sodium Chloride (NS Flush) 2 ml UNSCH PRN IV FLUSH FLUSH AFTER USING IV ACCESS ; Start 05/09/17 at 03:45; Stop 05/22/17 at 15:49; Status DC Sodium Chloride (NS Flush) 2 ml BID IV FLUSH Last administered on 05/22/17 10 :04; Start 05/09/17 at 09:00; Stop 05/22/17 at 15:49; Status DC Acetaminophen (Tylenol) 650 mg Q6H PRN PO PAIN 1-5 AND/OR FEVER >101F Last administered on 05/11/17 06:40; Start 05/09/17 at 03:45; Stop 05/22/17 at 15: 49; Status DC Oxycodone/ Acetaminophen (Percocet 5-325 Mg) 1 tab Q4H PRN PO PAIN SCALE 1 TO 5 Last administered on 05/15/17 10:09; Start 05/09/17 at 03:45; Stop at 15:49; Status DC Famotidine (Pepcid Inj) 20 mg Q12HR IV PUSH Last administered on 05/10/17 09: 25; Start 05/09/17 at 09:00; Stop 05/10/17 at 15:31; Status DC Ondansetron HCl (Zofran Inj) 4 mg Q6H PRN IV PUSH NAUSEA OR VOMITING Last administered on 05/10/17 10:00; Start 05/09/17 at 03:45; Stop 05/22/17 at 15: 49; Status DC Albuterol/ Ipratropium (Duoneb Neb) 1 ampule Q2HR NEB PRN INH WHEEZING; Start 05/09/17 at 03:45; Stop 05/22/17 at 15:49; Status DC Miscellaneous Information 1 Q361D XX ; Start 05/09/17 at 03:45; Stop 05/22/17 at 15:49; Status DC Chlorhexidine Gluconate (Chlorhexidine 2% Cloth) Taper DAILY@04 TOP ; Start 05/09/17 at 04:00; Stop 05/22/17 at 15:49; Status DC Chlorhexidine Gluconate (Chlorhexidine 2% Cloth) 3 pack UNSCH PRN TOP HYGIENIC CARE; Start 05/09/17 at 03:45; Stop 05/22/17 at 15:49; Status DC Senna/Docusate Sodium (Alissa-Colace) 1 tab BID PO Last administered on 10:03; Start 05/09/17 at 09:00; Stop 05/22/17 at 15:49; Status DC Magnesium Hydroxide (Milk Of Magnesia Liq) 30 ml Q12H PRN PO Mild constipation ; Start 05/09/17 at 03:45; Stop 05/22/17 at 15:49; Status DC Sennosides (Senokot) 17.2 mg Q12H PRN PO Moderate constipation Last administered on 05/13/17 09:01; Start 05/09/17 at 03:45; Stop 05/22/17 at 15: 49; Status DC Bisacodyl (Dulcolax Supp) 10 mg DAILY PRN RECTAL SEVERE CONSITIPATION Last administered on 05/14/17 13:53; Start 05/09/17 at 03:45; Stop 05/22/17 at 15: 49; Status DC Lactulose (Lactulose Liq) 30 ml DAILY PRN PO SEVERE CONSITIPATION Last administered on 05/14/17 13:53; Start 05/09/17 at 03:45; Stop 05/22/17 at 15: 49; Status DC Dexamethasone (Decadron) 2 mg DAILY PO ; Start 05/09/17 at 09:00; Stop 05/09/17 at 11:04; Status DC Gabapentin (Neurontin) 100 mg BID PO Last administered on 05/22/17 10:04; Start 05/09/17 at 09:00; Stop 05/22/17 at 15:49; Status DC Heparin Sodium/ Dextrose 250 ml @ 7 mls/hr TITRATE PRN IV Coagulation Management Last administered on 05/10/17 07:32; Start 05/09/17 at 03:45; Stop 05/10/17 at 09:06; Status DC Levetriacetam 100 ml @ 400 mls/hr Q12HR IV Last administered on 05/22/17 10: 04; Start 05/09/17 at 09:00; Stop 05/22/17 at 11:01; Status DC Hydromorphone HCl (Dilaudid Pf Inj) 0.2 mg Q4H PRN IV PUSH pain > 5/10 Last administered on 05/14/17 01:03; Start 05/09/17 at 07:00; Stop 05/22/17 at 15: 49; Status DC Levetriacetam 100 ml @ 400 mls/hr Q12HR IV ; Start 05/09/17 at 09:00; Stop 05/09/17 at 09:00; Status DC Lorazepam (Ativan Inj) 1 mg Q15M PRN IV PUSH seizure; Start 05/09/17 at 07:15; Stop 05/22/17 at 15:49; Status DC Dexamethasone Sodium Phosphate (Decadron Inj) 2 mg Q12HR IV PUSH Last administered on 05/22/17 10:04; Start 05/09/17 at 11:15; Stop 05/22/17 at 15: 49; Status DC Enoxaparin Sodium (Lovenox Inj) 60 mg Q12H SQ Last administered on 05/21/17 04:00; Start 05/10/17 at 16:00; Stop 05/21/17 at 12:31; Status DC Famotidine (Pepcid Inj) 10 mg Q12HR IV PUSH Last administered on 05/22/17 10: 04; Start 05/10/17 at 21:00; Stop 05/22/17 at 15:49; Status DC Hydralazine HCl (Apresoline Inj) 10 mg Q4H PRN IV PUSH SBP >140 Last administered on 05/14/17 01:33; Start 05/10/17 at 23:30; Stop 05/22/17 at 15: 49; Status DC Gadodiamide (Omniscan Pf Inj) 12 ml STK-MED ONCE IVCONTRAST Last administered on 05/11/17 09:56; Start 05/11/17 at 09:56; Stop 05/11/17 at 09:57; Status DC Metoprolol Tartrate (Lopressor) 12.5 mg Q12HR PO Last administered on 22:56; Start 05/12/17 at 10:00; Stop 05/22/17 at 15:49; Status DC Miscellaneous (Pill Splitter) 1 ea UNSCH PRN OTHER SEE LABEL COMMENTS; Start 05/12/17 at 10:00; Stop 05/22/17 at 15:49; Status DC Pharmacy Profile Note 0 ml @ 0 mls/hr UNSCH OTHER ; Start 05/16/17 at 13:45; Stop 05/22/17 at 15:49; Status DC Warfarin Sodium (Coumadin) 3 mg DAILY@1600 PO ; Start 05/16/17 at 16:00; Stop 05/16/17 at 20:34; Status DC Patient Medication Teaching (Coumadin Booklet) 1 ONCE ONCE .XX Last administered on 05/16/17 16:55; Start 05/16/17 at 16:00; Stop 05/16/17 at 16 :03; Status DC Warfarin Sodium (Coumadin) 3 mg DAILY@1600 PO Last administered on 05/20/17 17:31; Start 05/16/17 at 21:00; Stop 05/22/17 at 11:43; Status DC Patient Medication Teaching (Coumadin Booklet) 1 ONCE ONCE .XX Last administered on 05/16/17 21:00; Start 05/16/17 at 21:00; Stop 05/16/17 at 21 :01; Status DC Levetriacetam (Keppra) 1,000 mg ONCE ONCE PO Last administered on 05/16/17 23:31; Start 05/16/17 at 23:15; Stop 05/16/17 at 23:16; Status DC Dexamethasone (Decadron) 2 mg ONCE ONCE PO Last administered on 05/16/17 23: 31; Start 05/16/17 at 23:15; Stop 05/16/17 at 23:16; Status DC Famotidine (Pepcid) 20 mg ONCE ONCE PO Last administered on 05/16/17 23:31; Start 05/16/17 at 23:15; Stop 05/16/17 at 23:16; Status DC Warfarin Sodium (Coumadin) 2 mg ONCE ONCE PO Last administered on 05/18/17 15:57; Start 05/18/17 at 16:00; Stop 05/18/17 at 16:01; Status DC Warfarin Sodium (Coumadin) 2 mg ONCE ONCE PO Last administered on 05/19/17 16:30; Start 05/19/17 at 16:00; Stop 05/19/17 at 16:01; Status DC Levetriacetam (Keppra) 1,000 mg Q12HR PO ; Start 05/22/17 at 21:00; Stop 05/22 at 21:00; Status DC Warfarin Sodium (Coumadin) 2.5 mg DAILY@1600 PO ; Start 05/22/17 at 16:00; Stop 05/22/17 at 16:00; Status DC (Mikhail Jarrett MD) Medical Decision Making MDM Remarks 87 y/o female with ICH, venous thrombosis neuro stable (Cherrie Fernandez) Plan Plan Remarks cont therapy and rehab efforts management of the thrombosis and anticoagulation per Neurology Cleared per neurosurgical standpoint for discharge, will sign off, call prn (Cherrie Fernandez) Plan Remarks Caprini VTE Risk Assessment Caprini VTE Risk Assessment: Mod/High Risk (score >= 2) Caprini Risk Assessment Model Point Value = 1 Point Value = 2 Point Value = 3 Point Value = 5 Age 41-60 Minor surgery BMI > 25 kg/m2 Swollen legs Varicose veins or History of unexplained or recurrent spontaneous Oral contraceptives or hormone replacement Sepsis (< 1 month) Serious lung disease, including pneumonia (< 1 month) Abnormal pulmonary function Acute myocardial infarction Congestive heart failure (< 1 month) History of inflammatory bowel disease Medical patient at bed rest Age 61-74 Arthroscopic surgery Major open surgery (> 45 min) Laparoscopic surgery (> 45 min) Malignancy Confined to bed (> 72 hours) Immobilizing plaster cast Central venous access Age >= 75 History of VTE Family history of VTE Factor V Leiden Prothrombin [id number] Lupus anticoagulant Anticardiolipin antibodies Elevated serum homocysteine Heparin-induced thrombocytopenia Other congenital or acquired thrombophilia Stroke (< 1 month) Elective arthroplasty Hip, pelvis, or leg fracture Acute spinal cord injury (< 1 month) Prophylaxis Regimen Total Risk Factor Score Risk Level Prophylaxis Regimen 0-1 Low Early ambulation 2 Moderate Order ONE of the following: *Sequential Compression Device (SCD) *Heparin 5000 units SQ BID 3-4 Higher Order ONE of the following medications: *Heparin 5000 units SQ TID *Enoxaparin/Lovenox 40 mg SQ daily (WT < 150 kg, CrCl > 30 mL/min) *Enoxaparin/Lovenox 30 mg SQ daily (WT < 150 kg, CrCl > 10-29 mL/min) *Enoxaparin/Lovenox 30 mg SQ BID (WT < 150 kg, CrCl > 30 mL/min) AND/OR *Sequential Compression Device (SCD) 5 or more Highest Order ONE of the following medications: *Heparin 5000 units SQ TID (Preferred with Epidurals) *Enoxaparin/Lovenox 40 mg SQ daily (WT < 150 kg, CrCl > 30 mL/min) *Enoxaparin/Lovenox 30 mg SQ daily (WT < 150 kg, CrCl > 10-29 mL/min) *Enoxaparin/Lovenox 30 mg SQ BID (WT < 150 kg, CrCl > 30 mL/min) AND *Sequential Compression Device (SCD) (Mikhail Jarrett MD) Attending Statement Continue neuro checks in a serial fashion. I will kindly defer management of the thrombosis and anticoagulation to neurology. Pulmonary Continue .aggressive pulmonary toilette, nasotracheal suction, and breathing treatments with nebulizers. Nutrition. Oral diet ADA 2000 Asif Renal. monitor closely urine output, BUN and creatinine Diabetes mellitus. Monitor serial Acu checks and SSI as needed in detail ID monitor for signs of infection Protonix for stress ulcer prophylaxis Perez hose and SCD's for DVT prophylaxis Cleared per neurosurgicval stabdpoint for discharge The exam, history, and the medical decision-making described in the above note were completed with the assistance of the mid-level provider. I reviewed and agree with the findings presented. I attest that I had a [id number] encounter with the patient on the same day, and personally performed and documented my assessment and findings in the medical record. (Mikhail Jarrett MD) Cherrie Fernandez May 18, 2017 12:31 Mikhail Jarrett MD May 22, 2017 20:18
--- NOTE | 2017-05-18 13:38 | HHI.PR ---
Subjective Remarks The patient is sleepy at this time, family is at bedside. She was noted more alert earlier today. She is having no headaches. No new motor deficit. Denies fever or chills. No nausea or vomiting. Objective Vitals Vital Signs Date Time Temp Pulse Resp B/P (MAP) Pulse Ox O2 Delivery O2 Flow Rate FiO2 05/18/17 12:00 97.8 45 16 132/62 (85) 98 05/18/17 08:00 98.0 51 16 143/63 (89) 99 05/18/17 04:53 97.6 53 18 119/56 (77) 95 05/18/17 00:04 97.5 61 16 131/65 (87) 100 05/17/17 21:23 97.5 51 18 155/65 (95) 98 05/17/17 17:45 97.5 52 16 123/58 (79) 99 I/O 05/17/17 05/17/17 05/17/17 05/18/17 05/18/17 05/18/17 07:00 15:00 23:00 07:00 15:00 23:00 Intake Total 100 ml 900 ml 342 ml Balance 100 ml 900 ml 342 ml IV Total 100 ml 900 ml 342 ml # Voids 2 # Bowel Movements 0 Result Diagram: 05/18/17 0601 05/18/17 0601 Imaging Last Impressions Head CT 05/15/17 0000 Signed Impressions: Service Date/Time: Monday, May 15, 2017 14:23 - CONCLUSION: 1. The only interval change is a slight increase in the cytotoxic edema without mass effect or herniation. No new hemorrhage. Stable previous intraparenchymal and subarachnoid hemorrhage. Parker Sullivan Jr., MD Brain MRI 05/11/17 0000 Signed Impressions: Service Date/Time: Thursday, May 11, 2017 09:44 - CONCLUSION: Abnormality left proximal region is most likely an infarct that may be related to the venous thrombosis. This can be followed by MRI to ensure it is resolving as expected.. Base on MRI and CT the age of this would be similar between 3-5 days. Arvind Power MD FACR Objective Remarks GENERAL: Well-nourished, well-developed patient. Pleasant Lao-speaking woman , confused, appears lethargic. Son interprets for her. CARDIOVASCULAR: Irreg Irreg rate and rhythm without murmurs, gallops, or rubs. Rate 80s RESPIRATORY: Breath sounds equal bilaterally. No accessory muscle use. Clear. Comfortable pattern. GASTROINTESTINAL: Abdomen soft, non-tender, nondistended. BS active. No guarding. MUSCULOSKELETAL: No cyanosis, or edema. Well perfused. NEURO EXAM: Moves 4 limbs spontaneously, conversant in Lao. Alert. Mild chronic dementia though not received well by all family members. Procedures none A/P Problem List: (1) Debility ICD Code: R53.81 - Other malaise (2) Subarachnoid hemorrhage ICD Code: I60.9 - Nontraumatic subarachnoid hemorrhage, unspecified (3) Anxiety ICD Code: F41.9 - Anxiety disorder, unspecified (4) Dementia ICD Code: F03.90 - Unspecified dementia without behavioral disturbance (5) Diabetes ICD Code: E11.9 - Type 2 diabetes mellitus without complications (6) Neuropathy ICD Code: G62.9 - Polyneuropathy, unspecified (7) Hypertension ICD Code: I10 - Essential (primary) hypertension (8) Pain ICD Code: R52 - Pain, unspecified (9) Dural sinus thrombosis ICD Code: G08 - Intracranial and intraspinal phlebitis and thrombophlebitis Assessment and Plan 87 yo F, ill with new parenchymal hemorrhages and cerebral vein thrombosis. New parenchymal bleed probably related to venous back pressure from venous obstruction. Morbidity is so high without therapy that we will continue anticoagulation. Review of recent literature indicates that risk of catastrophic parenchymal hemorrhage is low and anticoagulation needs to be continued. Discussed with all consultants. Prognosis guarded. New atrial fibrillation with good rate control.Patient currently on lovenox 60 mg SQ BID. Neurology (Dr Huang to decide final anticoagulation recommendation at DC). Subarachnoid bleed secondary to cerebral vein thrombosis - No aneurysm observed on CTA - Blood pressure control - Neurosurgical consultation is following. - Repeat CT head 05/15/17 as patient with headache, confusion. Discusse adilson YE and Dr Jarrett from neurosurgery. - Will check CBC and BMP Cerebral Vein thrombosis - Heparin drip -> lovenox 60 q12h - Neurology consult. Discussed with Dr Huang neurology regarding anticoagulation recommendations at discharge. Recommends Coumadin and bridge with lovenox. IRN goal is 2-3. Discussed with the family and case management plan to DC patient to SNF as she needs close observation, monitoring INR - Transfer Hypertension - Hold diuretics. - Hydralazine and labetalol when necessary - SBP goal less than 140 Seizure - IV Keppra every 12 hours - EEG at the bedside Neuropathy - Home dose of gabapentin DVT GI prophylaxis - Teds SCDs - Heparin drip -> lovenox 60 sq q12h - Pepcid Discussed with the patient, nurse, son at bedside. Case management consulted for DC plan. DC plan: Plan to DC to SNF when cleared by specialists. CT head 05/15 at baseline. Discussed with Dr Huang neurology regarding anticoagulation recommendations at discharge. Recommends Coumadin and bridge with lovenox. IRN goal is 2-3. Discussed with the family and case management plan to DC patient to SNF as she needs close observation, monitoring INR . Consult rehab Dr Coffman for evaluation. Patient might go to [facility] if approved. Patient is not approved groups. Plan to discharge to nursing home facility however not accepted unless INR is therapeutic. Pharmacy is also following regarding Coumadin and monitoring INR. CM following for DC plan. Marianne Barker MD May 18, 2017 13:38
[2017-05-18] MEDS: WARFARIN SOD 3 MG TAB PO SCH (15:57)
[2017-05-18 16:00] VITALS: BP 131/61; PULSE 52; RESP 20; TEMP 98.9; O2SAT 98
[2017-05-18] MEDS ORDERED: WARFARIN SOD 2 MG TAB PO ONE (16:00)
[2017-05-18 20:44] VITALS: BP 112/56; PULSE 52; RESP 19; TEMP 97.6; O2SAT 97
[2017-05-19] VITALS (7 sets, daily range): BP systolic 111–158; BP diastolic 53–71; PULSE 43–53; RESP 18–20; TEMP 97.4–98.5; O2SAT 97–100
[2017-05-19] MEDS: CHLORHEXIDINE GLUCONATE 2 % 1 PACK (2 CLOTHS) TOP SCH (03:37)
[2017-05-19] MEDS: ENOXAPARIN SODIUM 60 MG/0.6 ML SYRINGE SQ SCH ×2 (03:37→16:30)
[2017-05-19 07:31] LABS: INTERNATIONAL NORMALIZED RATIO 1.2 RATIO; PROTHROMBIN TIME - PATIENT 12.8 SEC (9.8-11.6)
[2017-05-19] MEDS: levETIRAcetam 1000 MG INJ 100 ML IV SCH ×2 (08:51→21:45)
[2017-05-19] MEDS: GABAPENTIN 100 MG CAP PO SCH ×2 (08:51→21:46)
[2017-05-19] MEDS: DEXAMETHASONE SOD PHOS 4 MG/ML VIAL IV PUSH SCH ×2 (08:52→21:45)
[2017-05-19] MEDS: DOCUSATE SODIUM 50 MG/SENNA 8.6 MG TAB PO SCH ×2 (08:52→21:46)
[2017-05-19] MEDS: FAMOTIDINE 20 MG/2 ML VIAL IV PUSH SCH ×2 (08:52→21:46)
[2017-05-19] MEDS: METOPROLOL TARTRATE 25 MG TAB PO SCH ×2 (08:52→21:46)
[2017-05-19] MEDS: SODIUM CHLORIDE 0.9% FLUSH 10 ML FLUSH IV FLUSH SCH ×2 (08:53→21:45)
--- NOTE | 2017-05-19 09:30 | HHI.PR ---
Subjective Remarks Awake and alert today. Says she doesn't have any headaches. Throat vomiting. Denies chest pain or shortness of breath. Family at bedside. Objective Vitals Vital Signs Date Time Temp Pulse Resp B/P (MAP) Pulse Ox O2 Delivery O2 Flow Rate FiO2 05/19/17 05:05 98.2 45 18 139/71 (93) 97 05/19/17 00:48 97.4 53 19 158/67 (97) 98 05/18/17 20:44 97.6 52 19 112/56 (74) 97 05/18/17 16:00 98.9 52 20 131/61 (84) 98 05/18/17 12:00 97.8 45 16 132/62 (85) 98 I/O 05/18/17 05/18/17 05/18/17 05/19/17 05/19/17 05/19/17 07:00 15:00 23:00 07:00 15:00 23:00 Intake Total 900 ml 342 ml Balance 900 ml 342 ml IV Total 900 ml 342 ml # Voids 1 Result Diagram: 05/18/17 0601 05/18/17 0601 Imaging Last Impressions Head CT 05/15/17 0000 Signed Impressions: Service Date/Time: Monday, May 15, 2017 14:23 - CONCLUSION: 1. The only interval change is a slight increase in the cytotoxic edema without mass effect or herniation. No new hemorrhage. Stable previous intraparenchymal and subarachnoid hemorrhage. Parker Sullivan Jr., MD Brain MRI 05/11/17 0000 Signed Impressions: Service Date/Time: Thursday, May 11, 2017 09:44 - CONCLUSION: Abnormality left proximal region is most likely an infarct that may be related to the venous thrombosis. This can be followed by MRI to ensure it is resolving as expected.. Base on MRI and CT the age of this would be similar between 3-5 days. Arvind Power MD FACR Objective Remarks GENERAL: Well-nourished, well-developed patient. Pleasant Montenegrin-speaking woman , confused, appears lethargic. Son interprets for her. CARDIOVASCULAR: Irreg Irreg rate and rhythm without murmurs, gallops, or rubs. Rate 80s RESPIRATORY: Breath sounds equal bilaterally. No accessory muscle use. Clear. Comfortable pattern. GASTROINTESTINAL: Abdomen soft, non-tender, nondistended. BS active. No guarding. MUSCULOSKELETAL: No cyanosis, or edema. Well perfused. NEURO EXAM: Moves 4 limbs spontaneously, conversant in [place]. Alert. Mild chronic dementia though not received well by all family members. Procedures none A/P Problem List: (1) Debility ICD Code: R53.81 - Other malaise (2) Subarachnoid hemorrhage ICD Code: I60.9 - Nontraumatic subarachnoid hemorrhage, unspecified (3) Anxiety ICD Code: F41.9 - Anxiety disorder, unspecified (4) Dementia ICD Code: F03.90 - Unspecified dementia without behavioral disturbance (5) Diabetes ICD Code: E11.9 - Type 2 diabetes mellitus without complications (6) Neuropathy ICD Code: G62.9 - Polyneuropathy, unspecified (7) Hypertension ICD Code: I10 - Essential (primary) hypertension (8) Pain ICD Code: R52 - Pain, unspecified (9) Dural sinus thrombosis ICD Code: G08 - Intracranial and intraspinal phlebitis and thrombophlebitis Assessment and Plan 87 yo F, ill with new parenchymal hemorrhages and cerebral vein thrombosis. New parenchymal bleed probably related to venous back pressure from venous obstruction. Morbidity is so high without therapy that we will continue anticoagulation. Review of recent literature indicates that risk of catastrophic parenchymal hemorrhage is low and anticoagulation needs to be continued. Discussed with all consultants. Prognosis guarded. New atrial fibrillation with good rate control.Patient currently on lovenox 60 mg SQ BID. Neurology (Dr Huang to decide final anticoagulation recommendation at DC). Subarachnoid bleed secondary to cerebral vein thrombosis - No aneurysm observed on CTA - Blood pressure control - Neurosurgical consultation is following. - Repeat CT head 05/15/17 as patient with headache, confusion, finding discussed with Mary Carmen YE and Dr Jarrett from neurosurgery. - Will check CBC and BMP Cerebral Vein thrombosis - Heparin drip -> lovenox 60 q12h bridge coumadin. Patient can be DC to rehab when INR is closed to 2. - Neurology consult. Discussed with Dr Huang neurology regarding anticoagulation recommendations at discharge. Recommends Coumadin and bridge with lovenox. IRN goal is 2-3. Discussed with the family and case management plan to DC patient to SNF as she needs close observation, monitoring INR - Transfer Hypertension - Hold diuretics. - Hydralazine and labetalol when necessary - SBP goal less than 140 Seizure - IV Keppra every 12 hours - EEG at the bedside Neuropathy - Home dose of gabapentin DVT GI prophylaxis - Teds SCDs - Heparin drip -> lovenox 60 sq q12h - Pepcid Discussed with the patient, nurse, son at bedside. Case management consulted for DC plan. DC plan: Plan to DC to SNF when cleared by specialists. CT head 05/15 at baseline. Discussed with Dr Huang neurology regarding anticoagulation recommendations at discharge. Recommends Coumadin and bridge with lovenox. IRN goal is 2-3. Discussed with the family and case management plan to DC patient to SNF as she needs close observation, monitoring INR . Patient is not approved by insurance for rehab unless INTR is near 2. Plan to discharge to shelter facility however not accepted unless INR is therapeutic or near therapeutic . Pharmacy is also following regarding Coumadin and monitoring INR. CM following for DC plan. Marianne Barker MD May 19, 2017 09:30
[2017-05-19] MEDS ORDERED: WARFARIN SOD 2 MG TAB PO ONE (16:00)
[2017-05-19] MEDS: WARFARIN SOD 3 MG TAB PO SCH (16:30)
[2017-05-20 04:00] VITALS: BP 123/59; PULSE 44; RESP 20; TEMP 98.5; O2SAT 98
[2017-05-20] MEDS: ENOXAPARIN SODIUM 60 MG/0.6 ML SYRINGE SQ SCH ×2 (04:00→17:31)
[2017-05-20] MEDS: CHLORHEXIDINE GLUCONATE 2 % 1 PACK (2 CLOTHS) TOP SCH (04:00)
[2017-05-20 08:00] VITALS: BP 128/59; PULSE 46; RESP 18; TEMP 98.4; O2SAT 96
[2017-05-20] MEDS: levETIRAcetam 1000 MG INJ 100 ML IV SCH ×2 (09:00→21:41)
[2017-05-20] MEDS: DOCUSATE SODIUM 50 MG/SENNA 8.6 MG TAB PO SCH ×2 (09:23→21:42)
[2017-05-20] MEDS: SODIUM CHLORIDE 0.9% FLUSH 10 ML FLUSH IV FLUSH SCH ×2 (09:23→21:41)
[2017-05-20] MEDS: METOPROLOL TARTRATE 25 MG TAB PO SCH ×2 (09:23→21:42)
[2017-05-20] MEDS: FAMOTIDINE 20 MG/2 ML VIAL IV PUSH SCH ×2 (09:23→21:42)
[2017-05-20] MEDS: GABAPENTIN 100 MG CAP PO SCH ×2 (09:23→21:42)
[2017-05-20] MEDS: DEXAMETHASONE SOD PHOS 4 MG/ML VIAL IV PUSH SCH ×2 (09:23→21:42)
[2017-05-20 09:32] LABS: INTERNATIONAL NORMALIZED RATIO 2.1 RATIO
[2017-05-20 12:00] VITALS: BP 111/53; PULSE 45; RESP 18; TEMP 97.6; O2SAT 97
--- NOTE | 2017-05-20 13:42 | HHI.PR ---
Subjective Remarks She is in bed appears in not acute distress at this time. She has no more headaches as she is able to sleep at night. Family at bedside. With the many questions all concert best of my ability. The patient is eating fairly well she has no nausea or vomiting or diarrhea or constipation. No signs of bleeding. No motor deficit. Objective Vitals Vital Signs Date Time Temp Pulse Resp B/P (MAP) Pulse Ox O2 Delivery O2 Flow Rate FiO2 05/20/17 12:00 97.6 45 18 111/53 (72) 97 05/20/17 08:00 98.4 46 18 128/59 (82) 96 05/20/17 04:00 98.5 44 20 123/59 (80) 98 05/19/17 20:00 97.9 47 18 111/53 (72) 100 05/19/17 16:00 97.7 47 18 121/56 (77) 98 I/O 05/19/17 05/19/17 05/19/17 05/20/17 05/20/17 05/20/17 07:00 15:00 23:00 07:00 15:00 23:00 Intake Total 240 ml Balance 240 ml Intake Oral 240 ml # Voids 1 1 1 Result Diagram: 05/18/17 0601 05/18/17 0601 Imaging Last Impressions Head CT 05/15/17 0000 Signed Impressions: Service Date/Time: Monday, May 15, 2017 14:23 - CONCLUSION: 1. The only interval change is a slight increase in the cytotoxic edema without mass effect or herniation. No new hemorrhage. Stable previous intraparenchymal and subarachnoid hemorrhage. Parker Sullivan Jr., MD Brain MRI 05/11/17 0000 Signed Impressions: Service Date/Time: Thursday, May 11, 2017 09:44 - CONCLUSION: Abnormality left proximal region is most likely an infarct that may be related to the venous thrombosis. This can be followed by MRI to ensure it is resolving as expected.. Base on MRI and CT the age of this would be similar between 3-5 days. Arvind Power MD FACR Objective Remarks GENERAL: Well-nourished, well-developed patient. Pleasant Chinese-speaking woman , confused, appears lethargic. Son interprets for her. CARDIOVASCULAR: Irreg Irreg rate and rhythm without murmurs, gallops, or rubs. Rate 80s RESPIRATORY: Breath sounds equal bilaterally. No accessory muscle use. Clear. Comfortable pattern. GASTROINTESTINAL: Abdomen soft, non-tender, nondistended. BS active. No guarding. MUSCULOSKELETAL: No cyanosis, or edema. Well perfused. NEURO EXAM: Moves 4 limbs spontaneously, conversant in Chinese. Alert. Mild chronic dementia though not received well by all family members. Procedures none A/P Problem List: (1) Debility ICD Code: R53.81 - Other malaise (2) Subarachnoid hemorrhage ICD Code: I60.9 - Nontraumatic subarachnoid hemorrhage, unspecified (3) Anxiety ICD Code: F41.9 - Anxiety disorder, unspecified (4) Dementia ICD Code: F03.90 - Unspecified dementia without behavioral disturbance (5) Diabetes ICD Code: E11.9 - Type 2 diabetes mellitus without complications (6) Neuropathy ICD Code: G62.9 - Polyneuropathy, unspecified (7) Hypertension ICD Code: I10 - Essential (primary) hypertension (8) Pain ICD Code: R52 - Pain, unspecified (9) Dural sinus thrombosis ICD Code: G08 - Intracranial and intraspinal phlebitis and thrombophlebitis Assessment and Plan 87 yo F, ill with new parenchymal hemorrhages and cerebral vein thrombosis. New parenchymal bleed probably related to venous back pressure from venous obstruction. Morbidity is so high without therapy that we will continue anticoagulation. Review of recent literature indicates that risk of catastrophic parenchymal hemorrhage is low and anticoagulation needs to be continued. Discussed with all consultants. Prognosis guarded. New atrial fibrillation with good rate control.Patient currently on lovenox 60 mg SQ BID. Neurology (Dr Huang to decide final anticoagulation recommendation at DC). Subarachnoid bleed secondary to cerebral vein thrombosis - No aneurysm observed on CTA - Blood pressure control - Neurosurgical consultation is following. - Repeat CT head 05/15/17 as patient with headache, confusion, finding discussed with Mary Carmen YE and Dr Jarrett from neurosurgery. - Will check CBC and BMP Cerebral Vein thrombosis - Heparin drip -> lovenox 60 q12h bridge coumadin. Patient can be DC to rehab when INR is closed to 2. - Neurology consult. Discussed with Dr Huang neurology regarding anticoagulation recommendations at discharge. Recommends Coumadin and bridge with lovenox. IRN goal is 2-3. Discussed with the family and case management plan to DC patient to SNF as she needs close observation, monitoring INR - Transfer Hypertension - Hold diuretics. - Hydralazine and labetalol when necessary - SBP goal less than 140 Seizure - IV Keppra every 12 hours - EEG at the bedside Neuropathy - Home dose of gabapentin DVT GI prophylaxis - Teds SCDs - Heparin drip -> lovenox 60 sq q12h - Pepcid Discussed with the patient, nurse, son at bedside. Case management consulted for DC plan. DC plan: Plan to DC to SNF when cleared by specialists. CT head 05/15 at baseline. Discussed with Dr Huang neurology regarding anticoagulation recommendations at discharge. Recommends Coumadin and bridge with lovenox. IRN goal is 2-3. Discussed with the family and case management plan to DC patient to SNF as she needs close observation, monitoring INR . Patient is not approved by insurance for rehab unless INTR is near 2. Plan to discharge to retirement facility however not accepted unless INR is therapeutic or near therapeutic . Pharmacy is also following regarding Coumadin and monitoring INR. CM following for DC plan. INR is 2/1 on 05/20/17. CM is following for DC as INR therapeutic will need to sent request for insurance for approval.SHIRLEY ff Marianne Barker MD May 20, 2017 13:41
[2017-05-20 16:00] VITALS: BP 120/59; PULSE 50; RESP 18; TEMP 98.1; O2SAT 96
[2017-05-20] MEDS: WARFARIN SOD 3 MG TAB PO SCH (17:31)
[2017-05-20 20:00] VITALS: BP 115/55; PULSE 53; RESP 20; TEMP 98.3; O2SAT 98
[2017-05-21] VITALS: BP 104/51; PULSE 44; RESP 20; TEMP 98.1; O2SAT 98
[2017-05-21 04:00] VITALS: BP 147/67; PULSE 42; RESP 20; TEMP 98.4; O2SAT 97
[2017-05-21] MEDS: CHLORHEXIDINE GLUCONATE 2 % 1 PACK (2 CLOTHS) TOP SCH (04:00)
[2017-05-21] MEDS: ENOXAPARIN SODIUM 60 MG/0.6 ML SYRINGE SQ SCH (04:00)
[2017-05-21 08:17] LABS: INTERNATIONAL NORMALIZED RATIO 2.8 RATIO; PROTHROMBIN TIME - PATIENT 32.8 SEC (9.8-11.6)
[2017-05-21] MEDS: METOPROLOL TARTRATE 25 MG TAB PO SCH ×2 (08:18→22:56)
[2017-05-21] MEDS: DOCUSATE SODIUM 50 MG/SENNA 8.6 MG TAB PO SCH ×2 (08:18→22:56)
[2017-05-21] MEDS: DEXAMETHASONE SOD PHOS 4 MG/ML VIAL IV PUSH SCH ×2 (08:18→22:55)
[2017-05-21] MEDS: GABAPENTIN 100 MG CAP PO SCH ×2 (08:18→22:56)
[2017-05-21] MEDS: SODIUM CHLORIDE 0.9% FLUSH 10 ML FLUSH IV FLUSH SCH ×2 (08:18→22:55)
[2017-05-21] MEDS: FAMOTIDINE 20 MG/2 ML VIAL IV PUSH SCH ×2 (08:18→22:56)
[2017-05-21] MEDS: levETIRAcetam 1000 MG INJ 100 ML IV SCH ×2 (08:18→22:55)
[2017-05-21 08:28] VITALS: BP 129/59; PULSE 47; RESP 18; TEMP 97.7; O2SAT 98
--- NOTE | 2017-05-21 08:58 | PD.ONC.PN ---
Subjective Subjective Remarks Patient seen and examined, vital signs, medications and labs reviewed. She is awake and alert this morning, she tells me her head no longer hurts and tells me she has been up out of bed ambulating. She is eating her breakfast and tells me she is able to feed herself. She is looking forward to being discharged to rehabilitation either today or tomorrow. There were no acute events over the weekend. She remains on Lovenox with bridging to warfarin; INR is 2.1 today. Objective Data Date Time Temp Pulse Resp B/P (MAP) Pulse Ox O2 Delivery O2 Flow Rate FiO2 05/21/17 08:28 97.7 47 18 129/59 (82) 98 05/21/17 04:00 98.4 42 20 147/67 (93) 97 05/21/17 00:00 98.1 44 20 104/51 (68) 98 05/20/17 20:00 98.3 53 20 115/55 (75) 98 05/20/17 16:00 98.1 50 18 120/59 (79) 96 05/20/17 12:00 97.6 45 18 111/53 (72) 97 Result Diagram: 05/18/17 0601 05/18/17 0601 Laboratory Results Laboratory Tests Test 05/21/17 07:10 Prothrombin Time 32.8 SEC Prothromb Time International Ratio 2.8 RATIO Administered Medications Medications (Trade) Dose Ordered Sig/Anand Route PRN Reason Start Time Stop Time Status Last Admin Dose Admin Sodium Chloride (NS Flush) 2 ml BID IV FLUSH 05/09/17 09:00 05/21/17 08:18 Acetaminophen (Tylenol) 650 mg Q6H PRN PO PAIN 1-5 AND/OR FEVER >101F 05/09/17 03:45 05/11/17 06:40 Oxycodone/ Acetaminophen (Percocet 5-325 Mg) 1 tab Q4H PRN PO PAIN SCALE 1 TO 5 05/09/17 03:45 05/15/17 10:09 Ondansetron HCl (Zofran Inj) 4 mg Q6H PRN IV PUSH NAUSEA OR VOMITING 05/09/17 03:45 05/10/17 10:00 Senna/Docusate Sodium (Alissa-Colace) 1 tab BID PO 05/09/17 09:00 05/21/17 08:18 Sennosides (Senokot) 17.2 mg Q12H PRN PO Moderate constipation 05/09/17 03:45 05/13/17 09:01 Bisacodyl (Dulcolax Supp) 10 mg DAILY PRN RECTAL SEVERE CONSITIPATION 05/09/17 03:45 05/14/17 13:53 Lactulose (Lactulose Liq) 30 ml DAILY PRN PO SEVERE CONSITIPATION 05/09/17 03:45 05/14/17 13:53 Gabapentin (Neurontin) 100 mg BID PO 05/09/17 09:00 05/21/17 08:18 Levetriacetam 100 ml @ 400 mls/hr Q12HR IV 05/09/17 09:00 05/21/17 08:18 Hydromorphone HCl (Dilaudid Pf Inj) 0.2 mg Q4H PRN IV PUSH pain > 5/10 05/09/17 07:00 05/14/17 01:03 Dexamethasone Sodium Phosphate (Decadron Inj) 2 mg Q12HR IV PUSH 05/09/17 11:15 05/21/17 08:18 Enoxaparin Sodium (Lovenox Inj) 60 mg Q12H SQ 05/10/17 16:00 05/21/17 04:00 Famotidine (Pepcid Inj) 10 mg Q12HR IV PUSH 05/10/17 21:00 05/21/17 08:18 Hydralazine HCl (Apresoline Inj) 10 mg Q4H PRN IV PUSH SBP >140 05/10/17 23:30 05/14/17 01:33 Metoprolol Tartrate (Lopressor) 12.5 mg Q12HR PO 05/12/17 10:00 05/21/17 08:18 Warfarin Sodium (Coumadin) 3 mg DAILY@1600 PO 05/16/17 21:00 05/20/17 17:31 Objective Remarks GENERAL APPEARANCE: Ms. Lewis is an elderly female, she appears to be a slight frame, she is laying in bed, she is awake, she is fully verbal and speaks full sentences today. HEENT: Head atraumatic, normocephalic, conjunctive are not pale, sclerae are anicteric, EOMI, PERRLA, oral exam dry mucous membranes. NECK: No palpable cervical or supraclavicular lymphadenopathy. RESPIRATORY EXAM: Good air movement bilaterally. No added breath sounds. CARDIOVASCULAR: Bradycardia. Regular rhythm, S1-S2. No obvious murmurs, rubs or gallops. ABDOMINAL EXAM: Thin belly, soft, no palpable organ enlargement, belly is otherwise soft. LOWER EXTREMITIES: No pretibial edema. No calf tenderness. 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 Assessment/Plan Problem List: (1) Dural sinus thrombosis ICD Codes: G08 - Intracranial and intraspinal phlebitis and thrombophlebitis Plan: -- Found in the setting accompanied with SAH -- Currently on therapeutic Lovenox 60mg SQ BID -- The assumption is the back pressure resulting from the dural sinus thrombosis has resulted in the rupture of the arterioles in the brain parenchyma resulting in the bleeding. -- Repeat MRI on 05/11 shows Assessment 87 y/o female with dementia admitted for dural sinus thrombosis as well as a intraparenchymal brain hemorrhage, it appears the dural sinus thrombosis was the cause of the intracranial/intraparenchymal hemorrhage. Presently on therapeutic anticoagulation with Lovenox. Plan 1. Dural vein thrombosis: Currently on treatment with therapeutic anticoagulation. Antiphospholipid negative, protein C and protein S activity levels are also within normal limits. Factor V Leiden gene mutation is negative , circulating lupus anticoagulant within normal limits, anti-thrombin 3 levels also within normal limits. Per neurology the patient has been recommended transition from Lovenox to warfarin. INR is not therapeutic, may discontinue Lovenox and maintain warfarin with close monitoring. Clinically she appears to be stable, repeat CT scan of the head on 05/15/2017 indicated stable findings as far as the intracranial hemorrhages concerned, more edema was noted however. Clinically she appears to be much improved as compared to last week. Plan for discharge to inpatient rehabilitation. Jerry Figueroa MD May 21, 2017 08:58
--- NOTE | 2017-05-21 11:24 | HHI.PR ---
Subjective Remarks Very pleasant awake and alert. appears in nad. No headache new motor or sensory deficit. No n/v/d/c. No fever or chills. Objective Vitals Vital Signs Date Time Temp Pulse Resp B/P (MAP) Pulse Ox O2 Delivery O2 Flow Rate FiO2 05/21/17 08:28 97.7 47 18 129/59 (82) 98 05/21/17 04:00 98.4 42 20 147/67 (93) 97 05/21/17 00:00 98.1 44 20 104/51 (68) 98 05/20/17 20:00 98.3 53 20 115/55 (75) 98 05/20/17 16:00 98.1 50 18 120/59 (79) 96 05/20/17 12:00 97.6 45 18 111/53 (72) 97 I/O 05/20/17 05/20/17 05/20/17 05/21/17 05/21/17 05/21/17 07:00 15:00 23:00 07:00 15:00 23:00 Intake Total 240 ml Balance 240 ml Intake Oral 240 ml # Voids 1 4 1 1 # Bowel Movements 2 Result Diagram: 05/18/17 0601 05/18/17 0601 Imaging Last Impressions Head CT 05/15/17 0000 Signed Impressions: Service Date/Time: Monday, May 15, 2017 14:23 - CONCLUSION: 1. The only interval change is a slight increase in the cytotoxic edema without mass effect or herniation. No new hemorrhage. Stable previous intraparenchymal and subarachnoid hemorrhage. Parker Sullivan Jr., MD Brain MRI 05/11/17 0000 Signed Impressions: Service Date/Time: Thursday, May 11, 2017 09:44 - CONCLUSION: Abnormality left proximal region is most likely an infarct that may be related to the venous thrombosis. This can be followed by MRI to ensure it is resolving as expected.. Base on MRI and CT the age of this would be similar between 3-5 days. Arvind Power MD FACR Objective Remarks GENERAL: Well-nourished, well-developed patient. Pleasant [place]-speaking woman , confused, appears lethargic. Son interprets for her. CARDIOVASCULAR: Irreg Irreg rate and rhythm without murmurs, gallops, or rubs. Rate 80s RESPIRATORY: Breath sounds equal bilaterally. No accessory muscle use. Clear. Comfortable pattern. GASTROINTESTINAL: Abdomen soft, non-tender, nondistended. BS active. No guarding. MUSCULOSKELETAL: No cyanosis, or edema. Well perfused. NEURO EXAM: Moves 4 limbs spontaneously, conversant in Citizen [place]. Alert. Mild chronic dementia though not received well by all family members. Procedures none A/P Problem List: (1) Debility ICD Code: R53.81 - Other malaise (2) Subarachnoid hemorrhage ICD Code: I60.9 - Nontraumatic subarachnoid hemorrhage, unspecified (3) Anxiety ICD Code: F41.9 - Anxiety disorder, unspecified (4) Dementia ICD Code: F03.90 - Unspecified dementia without behavioral disturbance (5) Diabetes ICD Code: E11.9 - Type 2 diabetes mellitus without complications (6) Neuropathy ICD Code: G62.9 - Polyneuropathy, unspecified (7) Hypertension ICD Code: I10 - Essential (primary) hypertension (8) Pain ICD Code: R52 - Pain, unspecified (9) Dural sinus thrombosis ICD Code: G08 - Intracranial and intraspinal phlebitis and thrombophlebitis Assessment and Plan 87 yo F, ill with new parenchymal hemorrhages and cerebral vein thrombosis. New parenchymal bleed probably related to venous back pressure from venous obstruction. Morbidity is so high without therapy that we will continue anticoagulation. Review of recent literature indicates that risk of catastrophic parenchymal hemorrhage is low and anticoagulation needs to be continued. Discussed with all consultants. Prognosis guarded. New atrial fibrillation with good rate control.Patient currently on lovenox 60 mg SQ BID. Neurology (Dr Huang to decide final anticoagulation recommendation at DC). Subarachnoid bleed secondary to cerebral vein thrombosis - No aneurysm observed on CTA - Blood pressure control - Neurosurgical consultation is following. - Repeat CT head 05/15/17 as patient with headache, confusion, finding discussed with Mary Carmen YE and Dr Jarrett from neurosurgery. - Will check CBC and BMP Cerebral Vein thrombosis - Heparin drip -> lovenox 60 q12h bridge coumadin. Patient can be DC to rehab when INR is closed to 2. - Neurology consult. Discussed with Dr Huang neurology regarding anticoagulation recommendations at discharge. Recommends Coumadin and bridge with lovenox. IRN goal is 2-3. Discussed with the family and case management plan to DC patient to SNF as she needs close observation, monitoring INR - Transfer Hypertension - Hold diuretics. - Hydralazine and labetalol when necessary - SBP goal less than 140 Seizure - IV Keppra every 12 hours - EEG at the bedside Neuropathy - Home dose of gabapentin DVT GI prophylaxis - Teds SCDs - Heparin drip -> lovenox 60 sq q12h - Pepcid Discussed with the patient, nurse, son at bedside. Case management consulted for DC plan. DC plan: Plan to DC to SNF when cleared by specialists. CT head 05/15 at baseline. Discussed with Dr Huang neurology regarding anticoagulation recommendations at discharge. Recommends Coumadin and bridge with lovenox. IRN goal is 2-3. Discussed with the family and case management plan to DC patient to SNF as she needs close observation, monitoring INR . Patient is not approved by insurance for rehab unless INTR is near 2. Plan to discharge to snf facility however not accepted unless INR is therapeutic or near therapeutic . Pharmacy is also following regarding Coumadin and monitoring INR. CM following for DC plan. INR is therapeutic. CM is following for DC as INR therapeutic will need to sent request for insurance for approval. SHIRLEY ff Marianne Barker MD May 21, 2017 11:24
[2017-05-21 13:18] VITALS: BP 111/56; PULSE 50; RESP 20; TEMP 98; O2SAT 100
--- NOTE | 2017-05-21 15:40 | HHI.HCPN ---
Reason for visit a. To assist with evaluation and management of symptoms including: pain, debility, anxiety b. To assist medical decision maker(s) with: better understanding of current medical conditions; weighing benefits/burdens of medical treatment options; making medical treatment decisions. . (Elena Arevalo) Subjective/Interval History Mrs. Lewis is an 87-year-old female with dementia, neuralgia, thrombocytopenia , diabetes, and hepatitis C and hypertension who was transferred from to [facility] on 05/09/2017 with parenchymal hemorrhage and cerebral vein thromboses. Follow-up visit for symptom management and clarification of goals. Patient seen in her room, she was resting in bed in no acute distress. Son Joe at bedside. Patient is Haitian speaker, alert to self. Confused as to place and situation. Patient denies any pain, shortness of breath or abdominal discomfort. Most recent laboratory work 05/18/17 revealing WBC 5.5, HGB 11.8, reticulocyte count 125. BUN/creatinine 22/0.83. She remains afebrile, stable hemodynamically. Currently tolerating O2, oxygen saturation in the high 90s. No new imaging for review. Lengthy bedside conversation with patient's son Joe. He reports that family has elected to discharge patient to rehabilitation facility for physical straightening. Hospice philosophy and benefits reintroduce in retail, Joe tells me that family is receptive to hospice upon rehabilitation discharge/ return home. Reviewed community DNR, son reiterated NO CODE status. Patient's sons Joe and Venkata to sign community DNR, form left at bedside as Venkata will visit patient later today. Case discussed with home health care case manager Shaista Ocasio pending [id number] review by [facility]. . Family/friend interactions See interval note. . (Elena Arevalo) Advance Directives Advance Directive Specifics Health Care Surrogate(s): No advance directives completed. As per [place] statute, healthcare proxy decision-making falls to the majority of patient's children for which she has 3. . Documented care wishes: No known documented care wishes available. . Significant change in goals: No code. Family electing acute rehabilitation upon discharge, receptive to hospice once patient returns home. . (Elena Arevalo) Objective Vital Signs Date Time Temp Pulse Resp B/P (MAP) Pulse Ox O2 Delivery O2 Flow Rate FiO2 05/21/17 13:18 98.0 50 20 111/56 (74) 100 05/21/17 08:28 97.7 47 18 129/59 (82) 98 05/21/17 04:00 98.4 42 20 147/67 (93) 97 05/21/17 00:00 98.1 44 20 104/51 (68) 98 05/20/17 20:00 98.3 53 20 115/55 (75) 98 05/20/17 16:00 98.1 50 18 120/59 (79) 96 Intake & Output 05/21/17 05/21/17 07:00 19:00 Intake Total 240 ml Balance 240 ml Intake Oral 240 ml # Voids 2 2 # Bowel Movements 1 Physical Exam CONSTITUTIONAL/GENERAL: This is an adequately nourished patient, in no apparent distress. TUBES/LINES/DRAINS: PIV. SKIN: No jaundice, rashes, or lesions. No wounds seen anteriorly. Skin temperature appropriate. Not diaphoretic. HEAD: Atraumatic. Normocephalic. EYES: Pupils equal and round and reactive. No scleral icterus. No injection or drainage. Fundi not examined. ENT: Hearing grossly normal. Nose without bleeding or purulent drainage. Oral mucosa moist. NECK: Trachea midline. CARDIOVASCULAR: Regular rate and rhythm. No murmurs, gallops, or rubs. No JVD. Peripheral pulses symmetric. RESPIRATORY/CHEST: Symmetric, unlabored respirations. Clear to auscultation. Breath sounds equal bilaterally. No wheezes, rales, or rhonchi. GASTROINTESTINAL: Abdomen soft, round, non-tender. No guarding. Bowel sounds present. GENITOURINARY: Without palpable bladder distension. MUSCULOSKELETAL: Extremities without clubbing, cyanosis, or edema. No mottling or clubbing. NEUROLOGICAL: Awake, alert to self. Pleasantly confused. Moves all extremities. PSYCHIATRIC: calm. Pleasant and cooperative. . (Elena Arevalo) Diagnostic Tests Laboratory Laboratory Tests Test 05/19/17 06:36 05/20/17 08:28 05/21/17 07:10 Prothrombin Time 12.8 SEC (9.8-11.6) 24.0 SEC (9.8-11.6) 32.8 SEC (9.8-11.6) Prothromb Time International Ratio 1.2 RATIO 2.1 RATIO 2.8 RATIO (Elena Arevalo) Result Diagram: 05/18/1760005/18/17600 Assessment and Plan Disease Oriented Problem List: (1) Subarachnoid hemorrhage (2) Dural sinus thrombosis (3) Diabetes (4) Hypertension (5) Dementia (6) Neuropathy Symptom Scale: (1) Pain 0-10 Scale: 0 (2) Debility 0-10 Scale: Unable to quantify (3) Anxiety 0-10 Scale: 0 Pertinent Non-Medical Issues Psychosocial: Patient spent most of her life in [place]. She was for short period of time and had 3 sons. Patient never remarried. She currently lives with her son (Venkata) who assist with her care. 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 Spiritual: Restorationism stevie Legal: Patient does not have insight or judgment related to her medical conditions or various treatment options and will not regain capacity in the future. Per [place] statutes, and absence of written advanced directives healthcare proxy decision making would fall to the patient's 3 adult sons. Ethical issues impacting care: No known ethical issues impacting care at this time. . Important Contacts Venkata Lewis, son: [phone] . Prognosis Patient is ill with new parenchymal hemorrhages and cerebral vein thrombosis. New parenchymal bleed likely related to venous back pressure from venous obstruction. Morbidity is high without therapy so the patient has been kept on anticoagulation therapy. Review of recent literature indicates that risk of catastrophic parenchymal hemorrhage is low and anticoagulation needs to be continued. Prognosis is guarded. Code Status: No Code Plan * CODE STATUS: DO NOT RESUSCITATE. Community DNR reviewed with patient's son Joe. Palliative care to follow-up. * HEALTHCARE DECISION-MAKING: Patient does not have insight or judgment related to her medical conditions or various treatment options and will not regain capacity in the future -dementia. Per [place] statutes, and absence of written advanced directives healthcare proxy decision making would fall to the patient' s 3 adult sons: Joe Venkata and Del. * GOALS OF CARE: Family wishing to pursue aggressive management short of no code , looking into rehabilitation for physical straightening. Family receptive to hospice upon completion of rehabilitation/return home. Hospice philosophy and benefits has been introduced at length. * SYMPTOMS: Presented to ED with complaints of headache and atypical chest pain ; having ongoing headaches. Patient denies pain on exam. PRN Acetaminophen, Dilaudid and Percocet are available but have not been used in the past 24 hours. Patient is currently confused, no sign of anxiety on examination. * Discussed with home health care case manager, Marcelina. * Palliative care contact information provided to the patient's family. * Palliative care will continue to follow this patient throughout her hospitalization to assist with symptom management and clarification of medical treatment goals. . (Elena Arevalo) Time Spent Total Floor Time (mins): 26 (Total time to include review medical records, physical exam, goals of care conversation with patient and son, is discussion with home health care case manager.) >50% Counseling/Coord of Care: Yes (Elena Arevalo) Attestation To help prompt me to consider important information that might be impacting today's encounter and assessment, information from prior notes written by myself or my colleagues may have been "brought forward" into today's note. My signature on this note, however, is an attestation that I personally performed the exam, history, and/or decision-making noted today, and, unless otherwise indicated, the interactions with patient, family, and staff as well as the review of records all occurred today. I also attest that the listed assessment and stated plan reflect my best clinical judgment today based on the combination of historical information, prior notes, and today's exam/ interactions. When time spent is documented, it refers only to time spent today by the signer, or if indicated, combined time spent today by collaborating physician/nurse practitioner. (Elena Arevalo) Collaborating MD Comments Discussed with LUCIA, agree with assessment and plan (Mart Mcbride MD) Elena Arevalo May 21, 2017 15:40 Mart Mcbride MD May 22, 2017 09:55
[2017-05-21 17:04] VITALS: BP 128/62; PULSE 47; RESP 20; TEMP 97.5; O2SAT 98
[2017-05-21 20:00] VITALS: BP 113/55; PULSE 52; RESP 20; TEMP 97.8; O2SAT 97
[2017-05-22] VITALS: BP 126/60; PULSE 46; RESP 20; TEMP 97.5; O2SAT 98
[2017-05-22 04:00] VITALS: BP 133/65; PULSE 46; RESP 20; TEMP 97.5; O2SAT 98
[2017-05-22] MEDS: CHLORHEXIDINE GLUCONATE 2 % 1 PACK (2 CLOTHS) TOP SCH (04:00)
[2017-05-22 07:07] LABS: INTERNATIONAL NORMALIZED RATIO 2.1 RATIO; PROTHROMBIN TIME - PATIENT 23.4 SEC (9.8-11.6)
[2017-05-22 08:00] VITALS: BP 153/64; PULSE 44; RESP 18; TEMP 98.1; O2SAT 96
[2017-05-22] MEDS: DOCUSATE SODIUM 50 MG/SENNA 8.6 MG TAB PO SCH (10:03)
[2017-05-22] MEDS: FAMOTIDINE 20 MG/2 ML VIAL IV PUSH SCH (10:04)
[2017-05-22] MEDS: GABAPENTIN 100 MG CAP PO SCH (10:04)
[2017-05-22] MEDS: SODIUM CHLORIDE 0.9% FLUSH 10 ML FLUSH IV FLUSH SCH (10:04)
[2017-05-22] MEDS: DEXAMETHASONE SOD PHOS 4 MG/ML VIAL IV PUSH SCH (10:04)
[2017-05-22] MEDS: levETIRAcetam 1000 MG INJ 100 ML IV SCH (10:04)
[2017-05-22] MEDS: METOPROLOL TARTRATE 25 MG TAB PO SCH (10:04)
[2017-05-22] MEDS ORDERED: COUM2.5T PO (10:59)
[2017-05-22] MEDS ORDERED: KEPP750T PO (11:02)
[2017-05-22] MEDS ORDERED: NORC5TAB PO (11:02)
[2017-05-22 12:37] VITALS: BP 123/67; PULSE 50; RESP 18; TEMP 97.5; O2SAT 98
--- NOTE | 2017-05-22 13:02 | HHI.HCPN ---
Reason for visit a. To assist with evaluation and management of symptoms including: pain, debility, anxiety b. To assist medical decision maker(s) with: better understanding of current medical conditions; weighing benefits/burdens of medical treatment options; making medical treatment decisions. . Subjective/Interval History Mrs. Lewis is an 87-year-old female with dementia, neuralgia, thrombocytopenia , diabetes, and hepatitis C and hypertension who was transferred from to [facility] on 05/09/2017 with parenchymal hemorrhage and cerebral vein thromboses. Patient seen in her room, she was resting in bed in no acute distress. Son Joe at bedside. Patient is Irish speaker, alert to self. Confused as to place and situation. Patient denies any pain, shortness of breath or abdominal discomfort. Currently tolerating RA, oxygen saturation in the high 90s. Patient afebrile, stable hemodynamically. No new imaging or laboratory for review. Bedside conversation with patient's son Joe. Patient pending discharge to rehabilitation facility for physical straightening. Son Joe asking appropriate questions regarding hospice philosophy and benefits. Family considering enrolling patient into hospice services upon discharge from rehabilitation facility. Community DNR signed. . Family/friend interactions See interval note. Advance Directives Living Will: Never completed Health Care Surrogate: Never completed Durable Power of [employer] Dean: Never completed Advance Directive Specifics Health Care Surrogate(s): No advance directives completed. As per [place] statute, healthcare proxy decision-making falls to the majority of patient's children for which she has 3. . Documented care wishes: No known documented care wishes available. . Significant change in goals: Goals of therapy remain unchanged. . Objective Vital Signs Date Time Temp Pulse Resp B/P (MAP) Pulse Ox O2 Delivery O2 Flow Rate FiO2 05/22/17 12:37 97.5 50 18 123/67 (85) 98 05/22/17 08:00 98.1 44 18 153/64 (93) 96 05/22/17 04:00 97.5 46 20 133/65 (87) 98 05/22/17 00:00 97.5 46 20 126/60 (82) 98 05/21/17 20:00 97.8 52 20 113/55 (74) 97 05/21/17 17:04 97.5 47 20 128/62 (84) 98 05/21/17 13:18 98.0 50 20 111/56 (74) 100 Intake & Output 05/22/17 05/22/17 07:00 19:00 Intake Total 240 ml 100 ml Balance 240 ml 100 ml Intake Oral 240 ml IV Total 100 ml # Voids 3 Physical Exam CONSTITUTIONAL/GENERAL: This is an adequately nourished patient, in no apparent distress. TUBES/LINES/DRAINS: PIV. SKIN: No jaundice, rashes, or lesions. No wounds seen anteriorly. Skin temperature appropriate. Not diaphoretic. HEAD: Atraumatic. Normocephalic. EYES: Pupils equal and round and reactive. No scleral icterus. No injection or drainage. Fundi not examined. ENT: Hearing grossly normal. Nose without bleeding or purulent drainage. Oral mucosa moist. NECK: Trachea midline. CARDIOVASCULAR: Regular rate and rhythm. No murmurs, gallops, or rubs. No JVD. Peripheral pulses symmetric. RESPIRATORY/CHEST: Symmetric, unlabored respirations. Clear to auscultation. Breath sounds equal bilaterally. No wheezes, rales, or rhonchi. GASTROINTESTINAL: Abdomen soft, round, non-tender. No guarding. Bowel sounds present. GENITOURINARY: Without palpable bladder distension. MUSCULOSKELETAL: Extremities without clubbing, cyanosis, or edema. No mottling or clubbing. NEUROLOGICAL: Awake, alert to self. Pleasantly confused. Moves all extremities. PSYCHIATRIC: calm. Pleasant and cooperative. . Diagnostic Tests Laboratory Laboratory Tests Test 05/20/17 08:28 05/21/17 07:10 05/22/17 05:44 Prothrombin Time 24.0 SEC (9.8-11.6) 32.8 SEC (9.8-11.6) 23.4 SEC (9.8-11.6) Prothromb Time International Ratio 2.1 RATIO 2.8 RATIO 2.1 RATIO Result Diagram: 05/18/17 0605/18/17 06 Assessment and Plan Disease Oriented Problem List: (1) Subarachnoid hemorrhage (2) Dural sinus thrombosis (3) Diabetes (4) Hypertension (5) Dementia (6) Neuropathy Symptom Scale: (1) Pain 0-10 Scale: 0 (2) Debility 0-10 Scale: Unable to quantify (3) Anxiety 0-10 Scale: 0 Pertinent Non-Medical Issues Psychosocial: Patient spent most of her life in [place]. She was for short period of time and had 3 sons. Patient never remarried. She currently lives with her son (Venkata) who assist with her care. 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 Spiritual: Muslim stevie Legal: Patient does not have insight or judgment related to her medical conditions or various treatment options and will not regain capacity in the future. Per [place] statutes, and absence of written advanced directives healthcare proxy decision making would fall to the patient's 3 adult sons. Ethical issues impacting care: No known ethical issues impacting care at this time. . Important Contacts Venkata Lewis, son: [phone] . Prognosis Patient is ill with new parenchymal hemorrhages and cerebral vein thrombosis. New parenchymal bleed likely related to venous back pressure from venous obstruction. Morbidity is high without therapy so the patient has been kept on anticoagulation therapy. Review of recent literature indicates that risk of catastrophic parenchymal hemorrhage is low and anticoagulation needs to be continued. Prognosis is guarded. Code Status: No Code Plan * CODE STATUS: DNR/DNI. Community DNR has been signed, form placed in chart. * HEALTHCARE DECISION-MAKING: Patient does not have insight or judgment related to her medical conditions or various treatment options and will not regain capacity in the future -dementia. Per [place] statutes, and absence of written advanced directives healthcare proxy decision making would fall to the patient' s 3 adult sons: JoeVenkata montes and Del. * GOALS OF CARE: Family wishing to pursue conservative medical management short of NO code. Patient pending discharge to rehabilitation facility for physical straightening. Hospice philosophy and benefits reviewed with family at length. Family considering transitioning patient to comfort-directed care with hospice services upon discharge from rehabilitation facility. * SYMPTOMS: Presented to ED with complaints of headache and atypical chest pain ; having ongoing headaches. Patient denies pain on exam. PRN Acetaminophen, Dilaudid and Percocet are available but have not been used in the past 24 hours. Patient is currently confused, no sign of anxiety on examination. * Palliative care contact information provided to the patient's family. * Palliative care will continue to follow this patient throughout her hospitalization to assist with symptom management and clarification of medical treatment goals. . Time Spent Total Floor Time (mins): 28 (Total time to include review medical records, physical exam, goals of care conversation with patient's son Joe. Assistance in completion of community DNR.) >50% Counseling/Coord of Care: Yes Attestation To help prompt me to consider important information that might be impacting today's encounter and assessment, information from prior notes written by myself or my colleagues may have been "brought forward" into today's note. My signature on this note, however, is an attestation that I personally performed the exam, history, and/or decision-making noted today, and, unless otherwise indicated, the interactions with patient, family, and staff as well as the review of records all occurred today. I also attest that the listed assessment and stated plan reflect my best clinical judgment today based on the combination of historical information, prior notes, and today's exam/ interactions. When time spent is documented, it refers only to time spent today by the signer, or if indicated, combined time spent today by collaborating physician/nurse practitioner. Elena Arevalo May 22, 2017 13:02
--- NOTE | 2017-05-22 13:58 | HHI.PR ---
Subjective Remarks Ambulating with a walker in the room. Denies lightheadedness or blurry vision or headaches. No new motor deficit. No overt bleeding. INR at 2.1 today. Denies fever or chills. No nausea, vomiting, diarrhea or constipation. Denies chest pain or shortness of breath. Objective Vitals Vital Signs Date Time Temp Pulse Resp B/P (MAP) Pulse Ox O2 Delivery O2 Flow Rate FiO2 05/22/17 12:37 97.5 50 18 123/67 (85) 98 05/22/17 08:00 98.1 44 18 153/64 (93) 96 05/22/17 04:00 97.5 46 20 133/65 (87) 98 05/22/17 00:00 97.5 46 20 126/60 (82) 98 05/21/17 20:00 97.8 52 20 113/55 (74) 97 05/21/17 17:04 97.5 47 20 128/62 (84) 98 I/O 05/21/17 05/21/17 05/21/17 05/22/17 05/22/17 05/22/17 07:00 15:00 23:00 07:00 15:00 23:00 Intake Total 240 ml 100 ml Balance 240 ml 100 ml Intake Oral 240 ml IV Total 100 ml # Voids 1 2 1 2 # Bowel Movements 1 Result Diagram: 05/18/17 0601 05/18/17 0601 Imaging Last Impressions Head CT 05/15/17 0000 Signed Impressions: Service Date/Time: Monday, May 15, 2017 14:23 - CONCLUSION: 1. The only interval change is a slight increase in the cytotoxic edema without mass effect or herniation. No new hemorrhage. Stable previous intraparenchymal and subarachnoid hemorrhage. Parker Sullivan Jr., MD Brain MRI 05/11/17 0000 Signed Impressions: Service Date/Time: Thursday, May 11, 2017 09:44 - CONCLUSION: Abnormality left proximal region is most likely an infarct that may be related to the venous thrombosis. This can be followed by MRI to ensure it is resolving as expected.. Base on MRI and CT the age of this would be similar between 3-5 days. Arvind Power MD FACR Objective Remarks GENERAL: Well-nourished, well-developed patient. Pleasant Vincentian-speaking woman , confused, appears lethargic. Son interprets for her. CARDIOVASCULAR: Irreg Irreg rate and rhythm without murmurs, gallops, or rubs. Rate 80s RESPIRATORY: Breath sounds equal bilaterally. No accessory muscle use. Clear. Comfortable pattern. GASTROINTESTINAL: Abdomen soft, non-tender, nondistended. BS active. No guarding. MUSCULOSKELETAL: No cyanosis, or edema. Well perfused. NEURO EXAM: Moves 4 limbs spontaneously, conversant in Vincentian. Alert. Mild chronic dementia though not received well by all family members. Procedures none A/P Problem List: (1) Debility ICD Code: R53.81 - Other malaise (2) Subarachnoid hemorrhage ICD Code: I60.9 - Nontraumatic subarachnoid hemorrhage, unspecified (3) Anxiety ICD Code: F41.9 - Anxiety disorder, unspecified (4) Dementia ICD Code: F03.90 - Unspecified dementia without behavioral disturbance (5) Diabetes ICD Code: E11.9 - Type 2 diabetes mellitus without complications (6) Neuropathy ICD Code: G62.9 - Polyneuropathy, unspecified (7) Hypertension ICD Code: I10 - Essential (primary) hypertension (8) Pain ICD Code: R52 - Pain, unspecified (9) Dural sinus thrombosis ICD Code: G08 - Intracranial and intraspinal phlebitis and thrombophlebitis Assessment and Plan 87 yo F, ill with new parenchymal hemorrhages and cerebral vein thrombosis. New parenchymal bleed probably related to venous back pressure from venous obstruction. Morbidity is so high without therapy that we will continue anticoagulation. Review of recent literature indicates that risk of catastrophic parenchymal hemorrhage is low and anticoagulation needs to be continued. Discussed with all consultants. Prognosis guarded. New atrial fibrillation with good rate control.Patient currently on lovenox 60 mg SQ BID. Neurology (Dr Huang to decide final anticoagulation recommendation at DC). Subarachnoid bleed secondary to cerebral vein thrombosis - No aneurysm observed on CTA - Blood pressure control - Neurosurgical consultation is following. - Repeat CT head 05/15/17 as patient with headache, confusion, finding discussed with Mary Carmen YE and Dr Jarrett from neurosurgery. - Will check CBC and BMP Cerebral Vein thrombosis - Heparin drip -> lovenox 60 q12h bridge coumadin. DC lovenox. Patient can be DC to rehab when INR is closed to 2. - Neurology consult. Discussed with Dr Huang neurology regarding anticoagulation recommendations at discharge. IRN goal is 2-3. Discussed with the family and case management plan to DC patient to SNF as she needs close observation, monitoring INR - Transfer Hypertension - Hold diuretics. - Hydralazine and labetalol when necessary - SBP goal less than 140 Seizure - IV Keppra every 12 hours - EEG at the bedside Neuropathy - Home dose of gabapentin DVT GI prophylaxis - Teds SCDs - Heparin drip -> lovenox 60 sq q12h - Pepcid Discussed with the patient, nurse, son at bedside. Case management consulted for DC plan. DC plan: Plan to DC to SNF when cleared by specialists. CT head 05/15 at [address]iscuss[address] with Dr Huang neurology regarding anticoagulation recommendations at discharge. Recommends Coumadin and bridge with lovenox. IRN goal is 2-3. Discussed with the family and case management plan to DC patient to SNF as she needs close observation, monitoring INR . Patient is not approved by insurance for rehab unless INTR is near 2. Plan to discharge to [facility] facility however not accepted unless INR is therapeutic or near therapeutic . Pharmacy is also following regarding Coumadin and monitoring INR. CM following for DC plan. INR is therapeutic. CM is following for DC as INR therapeutic will need to sent request for insurance for approval. CM ff. Pending approval. Marianne Barker MD May 22, 2017 13:58
[2017-05-22] MEDS ORDERED: WARFARIN SOD 2.5 MG TAB PO SCH (16:00)
[2017-05-22] MEDS ORDERED: levETIRAcetam 500 MG TAB PO SCH (21:00)
== END 2017-05-22 15:49 | DRG 65 ==
LOC: N03B 02:15 → N05B 05-14 15:32
PROVIDERS: ADMIT Hospitalist; ATTEND Hospitalist
DX: I60.9 Nontraumatic subarachnoid hemorrhage, unspecified (principal); I67.6 Nonpyogenic thrombosis of intracranial venous system; F03.90 Unspecified dementia, unspecified severity, without behavioral disturbance, psychotic disturbance, mood disturbance, and anxiety; R56.9 Unspecified convulsions; G62.9 Polyneuropathy, unspecified; E11.9 Type 2 diabetes mellitus without complications; I48.91 Unspecified atrial fibrillation; I10 Essential (primary) hypertension; B19.20 Unspecified viral hepatitis C without hepatic coma; R07.89 Other chest pain; Z51.5 Encounter for palliative care; F41.9 Anxiety disorder, unspecified; Z66 Do not resuscitate; I61.9 Nontraumatic intracerebral hemorrhage, unspecified; R26.9 Unspecified abnormalities of gait and mobility
CPT/HCPCS: 70450; 70553; 76937; 80048; 80053; 81241; 83735; 84100; 85025; 85027; 85300; 85303; 85306; 85598; 85610; 85613; 85730; 86147; 87641; 93005; 95819; A9579; J0360; J1100; J1170; J1644; J1650; J1953; J2405; J7030; J8540